=== PATIENT | female | born 1995 | race Caucasian/White ===

== ENCOUNTER 2020-08-21 09:25 | Emergency (ER) | payer SELFPAY ==
[2020-08-21 09:31] VITALS: BP 120/80; PULSE 88; RESP 16; TEMP 36.5; O2SAT 99; BMI 28.3
--- NOTE | 2020-08-21 09:35 | W.ED.SKABFB ---
HPI - Skin/Abscess/Foreign Bdy General: Chief complaint: Skin/Abscess/Foreign Body Stated complaint: Infection on Big Toe (Left Foot) Time Seen by Provider: 08/21/20 09:27 History of Present Illness: HPI narrative: Patient is a 24-year-old female comes to the ED with ingrown toenail on left big toe. Patient says it started approximately 2 weeks ago. She has had this problem in the past and had to get part of her nail resected at her PCP. She now has swelling, erythema and warmth to the lateral aspect of left great toe. She says it is very tender and hurts whenever she puts any pressure on it. Associated symptoms: Deny chills, fever(s), nausea or vomiting Review of Systems Const: Denies: fever(s), chills or fatigue Eyes: Denies: change in vision or eye discomfort ENMT: Denies: throat pain, odynophagia, nasal discharge or nasal congestion Card: Denies: chest pain, palpitations, edema, swelling of feet/ankles, dyspnea on exertion or orthopnea Resp: Denies: dyspnea, productive cough or non-productive cough GI: Denies: abdominal pain, nausea, vomiting, diarrhea, constipation or hematochezia : Denies: flank pain, dysuria or hematuria Musc: Reports: extremity pain (Left great toe pain); Denies: neck pain, back pain or extremity swelling Skin/Breast: Denies: rash or new lesions Neuro: Denies: headache(s), numbness in extremities or weakness in extremities Physical Exam Const: COMMON NORMALS: no acute distress, patient oriented x3, healthy appearing and alert GENERAL APPEARANCE: cooperative and comfortable HENMT: COMMON NORMALS: normocephalic HEAD & SCALP: normocephalic MOUTH: Normal oral and palatal mucosa present THROAT: posterior oropharynx normal and uvula midline Neck/C-Spine: COMMON NORMALS: supple GENERAL: Yes normal visual inspection Resp: COMMON NORMALS: normal respiratory effort, No retractions, No use of accessory muscles and clear to auscultation bilaterally AUSCULTATION: clear to auscultation bilaterally Cardio: COMMON NORMALS: regular rate, regular rhythm, S1 normal heart sound present, S2 normal heart sound present, No gallops present (Cardio), No clicks present (Cardio), No murmurs present (Cardio) and Peripheral pulses 2+ throughout RATE: regular rate RHYTHM: regular rhythm HEART SOUNDS: S1 normal heart sound present and S2 normal heart sound present PERIPHERAL PULSES: Peripheral pulses 2+ throughout GI: COMMON NORMALS: Normal to inspection, nondistended, normoactive bowel sounds present, Soft to palpation, non-tender and no masses PALPATION: Yes Soft to palpation : COMMON NORMALS: Yes no CVA tenderness BLADDER/KIDNEY EXAM: Yes no CVA tenderness Back/Pelvis: COMMON NORMALS: no CVA tenderness Extremity: LEFT LOWER EXTREMITY: Yes foot & digits (1st digit) Left foot and digits: Yes inspection (Patient has ingrown toenail on big toe. Surrounding erythema, warmth ) and Yes palpation (tender upon palpation) Neuro: COMMON NORMALS: patient oriented x3 and moves all extremities SENSORIUM/ORIENTATION: Yes alert Skin: GENERAL SKIN EXAM: dry skin Procedures Nerve Block Nerve Block 1: Time out performed: Yes Local Anesthetic: lidocaine 2% Amount of anesthesia used (mL): 10 Side: left Nerve Blocks: digital (1st digit) Procedure Successful: Yes Patient Tolerated Procedure: well Complications: none Course ED course: I performed wedge nail resection on patient's left great toe. Patient had an ingrown toenail upon exam with erythema, warmth and tenderness around the nail fold. Using surgical scissors I was able to cut the nail and using forceps I remove the section of the nail that was ingrown into the nail fold causing infection. A digital block was performed to help with pain. Toe was irrigated with normal saline and cleaned with iodine. Vital Signs: Vital signs: Vital Signs Temperature 97.7 F 08/21/20 09:31 Pulse Rate 78 08/21/20 10:45 Respiratory Rate 18 08/21/20 10:45 Blood Pressure 104/71 08/21/20 10:45 Pulse Oximetry 100 08/21/20 10:45 MDM - Skin/Abscess/Foreign Bdy MDM Narrative: Medical decision making narrative: Patient is a 24-year-old female comes to the ED with ingrown toenail on left great toe. The toe had some erythema, warmth and tenderness upon palpation. I used a digital block and performed a wedge resection of nail that was growing into the nail fold. There were no complications. Patient was then placed on some antibiotics. She was told to follow-up with her PCP in 7 to 10 days for reevaluation. Return ED precautions given. Patient understood agree with plan. Discharge Plan Discharge Patient Disposition: Home Clinical Impression: Ingrowing nail, left great toe Condition: Stable Prescriptions: New amoxicillin 500 mg tablet 500 mg PO BID 10 Days Qty: 20 RF: 0 Discharge Orders: Discharge ED (Routine); Ordered 08/21/20 Ordered By: Charles Blackman Referrals: Charles Molina MD [Primary Care Provider] - Discharge Diet: Regular Discharge Activity: Resume usual activity Patient Instructions: Ingrown Nail (ED) Activity Restrictions/Additional Instructions: Follow-up with medical provider as directed in 7 to 10 days for reevaluation. Take medications as prescribed. Soak toe in Epsom salt water twice a day. Apply Neosporin and bandage daily. Take [id number] ibuprofen or Tylenol for pain. Return to the ER or your medical provider if condition worsens. Please read and understand discharge instructions. If any questions, please ask. Coding Level of Care Code ED Senior Enlisted Advisor for Karie Fwd Exam Comprehensive
[2020-08-21] MEDS: lidocaine 2% INJ 20 mL INJECTION (09:38)
[2020-08-21] MEDS: amoxicillin 500 mg Capsule PO (10:42)
[2020-08-21 10:45] VITALS: BP 104/71; PULSE 78; RESP 18; O2SAT 100
== END 2020-08-21 10:45 | disposition home or self-care (01) ==
PROVIDERS: Emergency Provider Physician Assistant; PCP Family Medicine
DX: L60.0 Ingrowing nail (principal)
CPT/HCPCS: 12345; 64450; 99281; 99283

== ENCOUNTER 2021-01-10 20:17 | Inpatient (IN) | payer SELFPAY ==
[2021-01-10 20:25] VITALS: BP 108/74; PULSE 100; RESP 18; TEMP 37.3; O2SAT 96; BMI 29.2
--- NOTE | 2021-01-10 20:46 | ED_ITS ---
HPI - Psych General: Chief Complaint: Psychiatric Symptoms Stated Complaint: SI Time Seen by Provider: 01/10/21 20:42 History of Present Illness: HPI Narrative: Patient is a 25-year-old female comes to the ED with SI. Patient says she has a history of depression and anxiety. Patient states for the past 3 weeks she is having worsening thoughts of SI. She says she has a lot of relationship and financial stress going on right now which is making her symptoms worse. She also states that January 02 was the anniversary of her son's , which is making her more depressed and suicidal. She denies having any plan in place. She endorses anxiety and not being able to sleep at night. She also says she has had no appetite and has lost interest in activities. Endorses auditory hallucinations of voices telling her to hurt herself and she also sees people that are not there and shadowy figures. Denies any homicidal ideation. Patient endorses drinking more alcohol over the past couple weeks but denies any drug use. Patient denies any physical symptoms such as fever, chills, chest pain, shortness of breath, cough, nausea/vomiting, bladder or bowel symptoms. Associated symptoms: Reports auditory hallucinations (She is hearing voices telling her to hurt herself.), visual hallucinations (She sees people standing next to her that are not there or shadowy figures.), depression and suicidal ideation; Deny homicidal ideation Review of Systems Const: Denies: fever(s), chills or fatigue Eyes: Denies: change in vision or eye discomfort ENMT: Denies: throat pain, odynophagia, nasal discharge or nasal congestion Card: Denies: chest pain, palpitations, edema, swelling of feet/ankles, dyspnea on exertion or orthopnea Resp: Denies: dyspnea, productive cough or non-productive cough GI: Denies: abdominal pain, nausea, vomiting, diarrhea, constipation or hematochezia : Denies: flank pain, dysuria or hematuria Musc: Denies: neck pain, back pain or extremity swelling Skin/Breast: Denies: rash or new lesions Neuro: Denies: headache(s), numbness in extremities or weakness in extremities Psych: Reports: anxiety, depression, sleeping less, loss of interest, change in appetite (No appetite), visual hallucinations (She sees people standing next to her that are not there or shadowy figures.), auditory hallucinations (She is hearing voices telling her to hurt herself.) and suicidal ideation; Denies: homicidal ideation [facility] ED Female Reproductive History: Date of last menstrual period: 12/14/20 Physical Exam Const: COMMON NORMALS: no acute distress, patient oriented x3 and alert GENERAL APPEARANCE: cooperative and comfortable HENMT: COMMON NORMALS: normocephalic HEAD & SCALP: normocephalic MOUTH: Normal oral and palatal mucosa present THROAT: posterior oropharynx normal and uvula midline Neck/C-Spine: COMMON NORMALS: supple GENERAL: Yes normal visual inspection Resp: COMMON NORMALS: normal respiratory effort, No retractions, No use of accessory muscles and clear to auscultation bilaterally AUSCULTATION: clear to auscultation bilaterally Cardio: COMMON NORMALS: regular rate, regular rhythm, S1 normal heart sound present, S2 normal heart sound present, No gallops present (Cardio), No clicks present (Cardio), No murmurs present (Cardio) and Peripheral pulses 2+ throughout RATE: regular rate RHYTHM: regular rhythm HEART SOUNDS: S1 normal heart sound present and S2 normal heart sound present PERIPHERAL PULSES: Peripheral pulses 2+ throughout GI: COMMON NORMALS: Normal to inspection, nondistended, normoactive bowel s ounds present, Soft to palpation, non-tender and no masses PALPATION: Yes Soft to palpation : COMMON NORMALS: Yes no CVA tenderness BLADDER/KIDNEY EXAM: Yes no CVA tenderness Back/Pelvis: COMMON NORMALS: no CVA tenderness Neuro: COMMON NORMALS: patient oriented x3 and moves all extremities SENS ORIUM/ORIENTATION: Yes alert Psych: COMMON NORMALS: Normal thought process present and speech normal APPEARANCE: Yes grossly normal ATTITUDE: Yes calm ACTIVITY/MOTOR BEHAVIOR: Yes appropriate eye contact SPEECH: Yes normal speech MOOD & AFFECT: Yes depressed mood, Yes sad and Yes tearful THOUGHT PROCESS: Normal thought process present THOUGHT CONTENT: Yes Suicidality present and Yes Hallucination(s) present auditory (Hears voices telling her to hurt her self) and visual (Sees people that are not there and shadowy figures) ATTENTION/CONCENTRATION: Yes attention grossly intact and Yes concentration grossly intact MEMORY/COGNITION: Yes memory grossly intact and Yes cognition grossly intact INSIGHT: Fair insight present (Psych) JUDGEMENT: Fair judgement present (Psych) Skin: GENERAL SKIN EXAM: dry skin Course Consultations: Consultation #1: I contacted Dr. Santos and told about patient case. He accepts admission of patient into NPU. Time: 21:14 Vital Signs: Vital signs: Vital Signs Temperature 99.1 F 01/10/21 20:25 Pulse Rate 100 01/10/21 20:25 Respiratory Rate 18 01/10/21 20:25 Blood Pressure 108/74 01/10/21 20:25 Pulse Oximetry 96 01/10/21 20:25 MDM - Psych MDM Narrative: Medical decision making narrative: Patient is a 25-year-old female comes to the ED with SI. Patient reports having increased anxiety depression and thoughts of suicide over the past couple weeks. She says that current stress with job, finances and relationships has been worsening symptoms. She also states that the anniversary of her son's passing was on January 02 and that is also worsened her symptoms of depression and SI. Patient is complaining of no other physical symptoms. Vital stable and in all prescreening labs performed low remarkable findings. I contacted Dr. Santos told about patient and he accepts patient's admission into the NPU. Dr. Gay placed the admitting orders. Lab Data: Attestation: I reviewed the patient's lab results. Labs: Lab Results 01/10/21 01/10/21 01/10/21 Range/Units 20:40 20:40 20:45 WBC 8.5 (4.0-10.0) 10^3/ uL RBC 4.48 (4.1-5.3) 10^6/u L Hgb 13.4 (11.5-15.3) g/dL Hct 39.2 (37.0-47.0) % MCV 87.5 (81-99) fL MCH 29.9 (28.0-34.0) pg MCHC 34.2 (30.0-36.0) g/dL RDW 12.0 L (12.1-15.1) % Plt Count 287 (130-400) 10^3/c mm MPV 9.4 (7.4-10.4) fL Neut % (Auto) 46.4 % Lymph % (Auto) 44.1 % Furn[place] % (Auto) 7.7 % Eos % (Auto) 0.7 % Baso % (Auto) 0.7 % Neut # (Auto) 3.94 (1.8-7.7) 10^3/u L Lymph # (Auto) 3.7 (0.8-4.8) 10^3/u L Furn[place] # (Auto) 0.7 (0.2-0.9) 10^3/u L Eos # (Auto) 0.1 (0.0-0.8) 10^3/u L Baso # (Auto) 0.1 (0.0-0.1) 10^3/u L Nucleated RBC % (a uto) 0 % Nucleated RBCs # 0.0 /100WBC Sodium 136 (136-145) mmol/L Potassium 3.8 (3.5-5.1) mmol/L Chloride 103 (98-107) mmol/L Carbon Dioxide 21 L (22-29) mmol/L Anion Gap 15.8 (5-19) BUN 15 (6-20) mg/dL Creatinine 0.7 (0.5-0.9) mg/dL GFR Calculation 102.0 (90-130) mL/min Glucose 98 (65-115) mg/dL Calculated Osmolal ity 283 L (285-295) mOsm/k g Calcium 9.4 (8.5-10.5) mg/dL Total Bilirubin 0.4 (0.15-1.2) mg/dL AST 16 (0-32) U/L ALT 14 (0-33) U/L Alkaline Phosphata se 59 (35-105) IU/L Total Protein 7.4 (6.6-8.7) g/dL Albumin 4.9 (3.5-5.2) g/dL Globulin 2.5 (1.3-4.6) g/dL HCG, Qual Negative (Negative) Salicylates < 0.3 L (3-10) mg/dL Urine Opiates Scre en (Negative) ng/mL Acetaminophen < 5.0 L (10-30) ug/mL Ur Barbiturates Sc reen (Negative) ng/mL Ur Phencyclidine S crn (Negative) ng/mL Ur Amphetamines Sc reen (Negative) ng/mL U Benzodiazepines Scrn (Negative) ng/mL Urine Cocaine Scre en (Negative) ng/mL U Marijuana (THC) Screen (Negative) ng/mL Ethyl Alcohol < 10 (0-10) mg/dL 01/10/21 Range/Units 20:45 WBC (4.0-10.0) 10^3/ uL RBC (4.1-5.3) 10^6/u L Hgb (11.5-15.3) g/dL Hct (37.0-47.0) % MCV (81-99) fL MCH (28.0-34.0) pg MCHC (30.0-36.0) g/dL RDW (12.1-15.1) % Plt Count (130-400) 10^3/c mm MPV (7.4-10.4) fL Neut % (Auto) % Lymph % (Auto) % Furn[place] % (Auto) % Eos % (Auto) % Baso % (Auto) % Neut # (Auto) (1.8-7.7) 10^3/u L Lymph # (Auto) (0.8-4.8) 10^3/u L [place] # (Auto) (0.2-0.9) 10^3/u L Eos # (Auto) (0.0-0.8) 10^3/u L Baso # (Auto) (0.0-0.1) 10^3/u L Nucleated RBC % (a uto) % Nucleated RBCs # /100WBC Sodium (136-145) mmol/L Potassium (3.5-5.1) mmol/L Chloride (98-107) mmol/L Carbon Dioxide (22-29) mmol/L Anion Gap (5-19) BUN (6-20) mg/dL Creatinine (0.5-0.9) mg/dL GFR Calculation (90-130) mL/min Glucose (65-115) mg/dL Calculated Osmolal ity (285-295) mOsm/k g Calcium (8.5-10.5) mg/dL Total Bilirubin (0.15-1.2) mg/dL AST (0-32) U/L ALT (0-33) U/L Alkaline Phosphata se (35-105) IU/L Total Protein (6.6-8.7) g/dL Albumin (3.5-5.2) g/dL Globulin (1.3-4.6) g/dL HCG, Qual (Negative) Salicylates (3-10) mg/dL Urine Opiates Scre en Negative (Negative) ng/mL Acetaminophen (10-30) ug/mL Ur Barbiturates Sc reen Negative (Negative) ng/mL Ur Phencyclidine S crn Negative (Negative) ng/mL Ur Amphetamines Sc reen Negative (Negative) ng/mL U Benzodiazepines Scrn Negative (Negative) ng/mL Urine Cocaine Scre en Negative (Negative) ng/mL U Marijuana (THC) Screen Negative (Negative) ng/mL Ethyl Alcohol (0-10) mg/dL Discharge Plan Discharge Patient Disposition: Admitted As Inpatient Admit Provider: Willem Hines Clinical Impression: Suicidal ideation Condition: Stable Coding Level of Care Code ED Call Worker Person for Karie Fwd Exam Comprehensive
[2021-01-10 20:47] LABS: Basophils # 0.1 10^3/uL (0.0-0.1); Basophils % 0.7 %; Eosinophils # 0.1 10^3/uL (0.0-0.8); Eosinophils % 0.7 %; Hematocrit 39.2 % (37.0-47.0); Hemoglobin 13.4 g/dL (11.5-15.3); Lymphocytes # 3.7 10^3/uL (0.8-4.8); Lymphocytes % 44.1 %; Mean Corpuscular HGB Conc 34.2 g/dL (30.0-36.0); Mean Corpuscular Hemoglobin 29.9 pg (28.0-34.0); Mean Corpuscular Volume 87.5 fL (81-99); Mean Platelet Volume 9.4 fL (7.4-10.4); Monocytes # 0.7 10^3/uL (0.2-0.9); Monocytes % 7.7 %; Neutrophils # 3.94 10^3/uL (1.8-7.7); Neutrophils % 46.4 %; Nucleated Red Blood Cells % 0 %; Platelet Count 287 10^3/cmm (130-400); Red Blood Count 4.48 10^6/uL (4.1-5.3); White Blood Count 8.5 10^3/uL (4.0-10.0)
[2021-01-10 20:57] LABS: HCG Qualitative Urine. Negative (Negative)
[2021-01-10 21:03] LABS: Acetaminophen < 5.0 ug/mL (10-30); Alanine Aminotransferase 14 U/L (0-33); Albumin Level 4.9 g/dL (3.5-5.2); Alcohol Level < 10 mg/dL (0-10); Alkaline Phosphatase 59 IU/L (35-105); Anion Gap 15.8 (5-19); Aspartate Amino Transferase 16 U/L (0-32); Blood Urea Nitrogen 15 mg/dL (6-20); Calcium 9.4 mg/dL (8.5-10.5); Carbon Dioxide 21 mmol/L (22-29); Chloride 103 mmol/L (98-107); Globulin 2.5 g/dL (1.3-4.6); Glucose 98 mg/dL (65-115); Osmolality Calculated 283 mOsm/kg (285-295); Potassium 3.8 mmol/L (3.5-5.1); Salicylate < 0.3 mg/dL (3-10); Sodium 136 mmol/L (136-145); Total Bilirubin 0.4 mg/dL (0.15-1.2); Total Protein 7.4 g/dL (6.6-8.7)
[2021-01-10] MEDS: LORazepam 1 mg Tablet PO (21:41)
[2021-01-10 22:00] VITALS: BP 135/85; PULSE 75; RESP 18; TEMP 37.1; O2SAT 96
--- NOTE | 2021-01-10 22:15 | PC.NURSE ---
Addendum entered by Britta Fish RN 01/11/21 02:02: Pt reports seeing a shadow figure and someone standing next to her that just disappears. She says the voices are telling her to hurt herself and she does not deserve to live. Pt became tearful as she talked about losing her child, the anniversary of his was January 02, this is when she began to really be symptomatic. She expressed that her drinking is getting worse and she don't want to become an alcoholic. Original Note: Admission 25/F SI & AH/VH/Tactile UDS &BAL BOTH NEG Per pt report, she has been having suicidal thoughts for a couple of weeks with them become worse over the last couple days. Pt reports seeking help with her mental health after the visual & auditory hallucinations were complicated by tactile hallucinations. Pt says, ?it is like something is grabbing me?. Pt reports beginning new medication last Saturday. She states, ?I started taking Abilify on Saturday but I think it is making things worse, my heart pounds, began stuttering, and having panic attacks. I am not sure if that is related or not.? Pt states, ?I also started taking Lexapro, and a small white pill, I believe is clonidine.? Pt reports picking RX up from [facility]. Stressors: Pt expressed financial concerns, inability to pay for medication and care without insurance, pending divorce, announcing her sexual orientation to conservative Orthodoxy family members accompanied by restorationist guilt, complicated by the inability to grieve the loss of her child 5 years ago. 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
[2021-01-10 22:28] LABS: Amphetamines Screen Urine Negative (Negative); Barbiturates Screen Urine Negative (Negative); Benzodiazepines Screen Urine Negative (Negative); Cocaine Screen Urine Negative (Negative); Opiate Screen Urine Negative (Negative); PCP Screen Urine Negative (Negative); THC Screen Urine Negative (Negative)
--- NOTE | 2021-01-10 23:10 | PC.NURSE ---
pt requested meds for sleep and anxiety. Trazodone 50mg po for sleep, and Vistaril 50mg po for anxiety given.
[2021-01-10] MEDS: hyDROXYzine 25 mg Capsule 50 MG PO ×2 (23:18→23:20)
[2021-01-10] MEDS: trazodone 50 mg Tablet PO ×2 (23:19→23:20)
--- NOTE | 2021-01-11 00:12 | PC.NURSE ---
pt resting quietly with both eyes closed.
[2021-01-11 06:00] VITALS: BP 95/63; PULSE 102; RESP 17; TEMP 36.8; O2SAT 99
[2021-01-11 14:00] VITALS: BP 105/72; PULSE 85; RESP 18; TEMP 37.1; O2SAT 99
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
[2021-01-11] MEDS: acetaminophen 325 mg Tablet 650 MG PO (20:29)
[2021-01-11 20:30] VITALS: BP 110/73; PULSE 117; RESP 24; TEMP 37; O2SAT 97
[2021-01-11] MEDS: BuSPIRONE 10 mg Tablet 15 MG PO (20:30)
[2021-01-11] MEDS: hyDROXYzine 25 mg Capsule 50 MG PO (21:24)
--- NOTE | 2021-01-11 21:25 | PC.NURSE ---
PRN Visteril 50mg PO given for anxiety and to help pt relax while trying to go to sleep. PT reports to nurse that this medication worked well for her last night without the hang over effect other medications have had in the past.
[2021-01-12 06:00] VITALS: BP 98/62; PULSE 68; RESP 18; TEMP 36.9; O2SAT 100
[2021-01-12] MEDS: BuSPIRONE 10 mg Tablet 15 MG PO ×2 (08:24→21:11)
[2021-01-12 13:54] VITALS: BP 101/68; PULSE 78; RESP 16; TEMP 37.1; O2SAT 99
[2021-01-12] MEDS: acetaminophen 325 mg Tablet 650 MG PO (21:10)
--- NOTE | 2021-01-12 21:12 | PC.NURSE ---
Tylenol 650mg PO given for headache rate 5 on 1-10 scale
[2021-01-12 21:20] VITALS: BP 101/68; PULSE 78; RESP 16; TEMP 37.1; O2SAT 99
[2021-01-12 21:33] VITALS: BP 96/66; PULSE 77; RESP 18; TEMP 37.4; O2SAT 99
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
== END 2021-01-12 21:50 | disposition left against medical advice (07) | DRG 881 ==
LOC: ER 21:37 → NP 21:47
PROVIDERS: Emergency Medicine; Admitting Provider Internal Medicine; Emergency Provider Physician Assistant; PCP Family Medicine; Visit Provider Internal Medicine
DX: F32.9 Major depressive disorder, single episode, unspecified (principal); R45.851 Suicidal ideations; R44.0 Auditory hallucinations; F41.9 Anxiety disorder, unspecified; F43.10 Post-traumatic stress disorder, unspecified; R44.1 Visual hallucinations; K58.9 Irritable bowel syndrome, unspecified; Z91.5 Personal history of self-harm; Z63.0 Problems in relationship with spouse or partner; Z72.89 Other problems related to lifestyle; Z81.8 Family history of other mental and behavioral disorders; Z62.811 Personal history of psychological abuse in childhood; Z53.29 Procedure and treatment not carried out because of patient's decision for other reasons; Z91.410 Personal history of adult physical and sexual abuse
CPT/HCPCS: 80053; 80306; 80307; 81025; 85025; 99285

== ENCOUNTER 2021-02-07 10:12 | Emergency (ER) | payer MEDICAID, SELFPAY ==
[2021-02-07 10:45] VITALS: PULSE 83; RESP 16; TEMP 36.4; O2SAT 99; BMI 30.4
[2021-02-07 10:48] VITALS: BP 93/68; PULSE 71; RESP 15; O2SAT 99
--- NOTE | 2021-02-07 11:10 | CT_ITS ---
WS: [id number] CT ABDOMEN AND PELVIS WITH CONTRAST HISTORY: RLQ/ Rt flank pain TECHNIQUE: Imaging performed of the abdomen and pelvis with IV contrast. Single phase imaging of the abdomen. Coronal and sagittal reformats are submitted. All CT scans at [facility] use at least one of these dose optimization techniques: automated exposure control; mA and/or kV adjustment per patient size (includes targeted exams where dose is matched to clinical indication); or iterativ e reconstruction. IV CONTRAST: Omnipaque 300; 95 mL IV. Oral contrast: No DLP: 1296.4 mGy.cm COMPARISON: 10/31/2012 Lower thorax: Lung bases are clear. Heart is normal size. No hiatal hernia. Liver/biliary system: Normal size with no intrahepatic dilatation. Tiny hypodensity in the posterior RIGHT lobe liver is probably a cyst but too small to characterize. Gallbladder: Normal. No gallstones or wall thickening. No pericholecystic fluid. Pancreas: Normal size pancreas and pancreatic duct. No adjacent inflammation. Spleen: Normal size spleen. No mass or infarct. Adrenal glands: Normal. Right kidney: Normal. Left kidney: Normal. Aorta: Normal. Lymphadenopathy: None. Free fluid: There is a small amount of free fluid in the cul-de-sac and extending bilaterally into th e adnexa. GI tract: The appendix is only partially visualized but normal. Moderate diffuse fecal retention. No obstruction. Increased air within the stomach. Abdominal wall: Unremarkable abdominal wall. No hernia. Pelvis: Uterus is midline. RIGHT ovarian cyst measures 2.5 x 2.1 cm. Small follicles in the LEFT ovar y. There is a small amount of free fluid in the cul-de-sac. Slightly more than physiologic and extend s bilaterally. Bones: RIGHT convex curvature lumbar spine. CT/CT abdomen pelvis w con* [id number] IMPRESSION: 1. Partially visualized appendix is normal. 2. Small RIGHT ovarian cyst and small amount of free fluid in the cul-de-sac. Fluid may be due to ruptured ovarian cyst. 3. No renal obstruction.
--- NOTE | 2021-02-07 11:11 | ED_ITS ---
HPI - Abdominal Pain General: Chief Complaint: Abdominal Pain Stated Complaint: lower abd and back pain Time Seen by Provider: 02/07/21 11:04 History of Present Illness: HPI narrative: The patient comes to the ER complaining of right pubic pain that started last night also right flank pain radiating to the right lower quadrant. She has not had kidney stones before but has had multiple UTIs. She is also had the ovarian cysts in the past which feels similar to the pain she is having now. She was seen at her primary care doctor's office today and told she had a possible UTI with some white blood cells in her urine and to go to the ER for a CAT scan. MD elicited complaint: abdominal pain Pain Consistency: constant Location: RLQ Severity: moderate Quality: sharp Radiation: R flank Exacerbating factors: nothing and other (Palpation) Relieving factors: nothing Associated Symptoms: Reports no associated symptoms; Denies GI cramping and diarrhea Related Data: Date of Last Menstrual Period: 12/19/20 Review of Systems General: Reports: 10 or more systems reviewed and unremarkable except in HPI and below Const: Denies: fatigue Eyes: Denies: change in vision, blurry vision or eye redness ENMT: Denies: throat pain, swelling of lips/tongue, ear or mastoid pain or nasal congestion Card: Denies: chest pain, palpitations, irregular heart rhythm, edema, dyspnea on exertion or orthopnea Resp: Denies: dyspnea, productive cough or non-productive cough GI: Reports: abdominal pain; Denies: diarrhea or GI cramping : Reports: flank pain (right); Denies: difficulty voiding, urinary frequency or urinary urgency Musc: Denies: neck pain, back pain, extremity pain, joint pain, joint redness, limited range of motion or muscle weakness Skin/Breast: Denies: rash, pruritus, erythema, skin pain or skin tenderness Neuro: Denies: headache(s), numbness in extremities, weakness in extremities, sensory changes, difficulty walking, dizziness, confusion or Slurred speech present Psych: Denies: anxiety or depression Endo: Denies: polyuria All/Imm: Denies: urticaria, throat swelling or tongue swelling [facility] Female Reproductive History: Date of last menstrual period: 12/19/20 : 3 Physical Exam Const: COMMON NORMALS: no acute distress, average body habitus, patient oriented x3, no limitations, healthy appearing, alert and well nourished GENERAL APPEARANCE: cooperative, comfortable, well kempt and well developed ORIENTATION/CONSCIOUSNESS: Yes awake, Yes oriented to person, Yes oriented to place and Yes oriented to time HENMT: COMMON NORMALS: normocephalic, external ears normal and Normal external nose present HEAD & SCALP: normal to inspection and normocephalic NOSE: Normal external nose present EXTERNAL EAR: Yes external ears normal MOUTH: Normal oral and palatal mucosa present THROAT: posterior oropharynx normal Eye: COMMON NORMALS: Equal, round and reactive pupils present and EOMs intact bilaterally GENERAL EYE: appearance normal, both eyes and all related structures PUPIL: Yes Equal, round and reactive pupils present Neck/C-Spine: COMMON NORMALS: full ROM, no lymphadenopathy, no meningeal signs and no JVD GENERAL: Yes normal visual inspection Lymph: LYMPHATIC: no lymphadenopathy noted Chest: COMMONS NORMALS: normal inspection of the chest and normal palpation of entire chest wall Resp: COMMON NORMALS: normal respiratory effort, No retractions, No use of accessory muscles, clear to auscultation bilaterally and percussion normal EFFORT & INSPECTION: Yes able to speak in complete sentences AUSCULTATION: clear to auscultation bilaterally PERCUSSION: percussion normal Cardio: COMMON NORMALS: no JVD, regular rate, regular rhythm, S1 normal heart sound present, S2 normal heart sound present and Peripheral pulses 2+ throughout RATE: regular rate RHYTHM: regular rhythm HEART SOUNDS: S1 normal heart sound present and S2 normal heart sound present PERIPHERAL PULSES: Peripheral pulses 2+ throughout GI: COMMON NORMALS: Normal to inspection, nondistended, normoactive bowel sounds present, Soft to palpation and no masses INSPECTION: Yes normal to inspection PALPATION: Yes Soft to palpation GI image (female): 1. Right lower quadrant abdominal tenderness near the ovaries : OTHER: Right-sided flank tenderness. Back/Pelvis: COMMON NORMALS: thoracic and lumbar spine normal to inspection, no thoracic nor lumbar tenderness and thoraco-lumbar ROM normal Extremity: COMMON NORMALS: normal to inspection, full ROM, capillary refill normal, no joint enlargement and no pedal edema GENERAL: Yes normal exam except as noted Neuro: COMMON NORMALS: patient oriented x3, CN's II-XII intact bilaterally, moves all extremities, no focal motor deficits, no sensory deficits noted and gait normal SENSORIUM/ORIENTATION: Yes alert, Yes oriented to person, Yes oriented to place and Yes oriented to time MENINGEAL SIGNS: Yes no meningeal signs Psych: COMMON NORMALS: mental status grossly normal, Normal thought process present, cooperative, normal affect and speech normal APPEARANCE: Yes well kempt ATTITUDE: Yes calm SPEECH: Yes normal speech THOUGHT PROCESS: Normal thought process present Skin: COMMON NORMALS: no rashes or lesions noted GENERAL SKIN EXAM: no rashes or lesions noted Course Vital Signs: Vital signs: Vital Signs Temperature 97.6 F 02/07/21 10:45 Pulse Rate 71 02/07/21 13:00 Respiratory Rate 15 02/07/21 13:00 Blood Pressure 106/60 02/07/21 13:00 Pulse Oximetry 100 02/07/21 13:00 MDM - Abdominal Pain MDM Narrative: Medical decision making narrative: The patient comes in with right flank pain and right lower quadrant pain. She has a history of ovarian cyst. Does not have history of stones. She does have occasional UTIs. She was sent from primary care office for a belly CT. And told she had white blood cells in her urine. Here her urine is clear but she does have right flank pain and right lower quadrant pain near her ovaries. She has had ovarian cyst in the past and it does feel similar there. CT does show recent ruptured ovarian cyst most likely. We will treat her for potential UTI and discharge her home. Follow-up with Dr. Molina in a couple days. ER at anytime with worsening symptoms Lab Data: Labs: Lab Results 02/07/21 02/07/21 02/07/21 Range/Units 11:06 11:06 11:06 WBC 7.1 (4.0-10.0) 10^3/ uL RBC 4.44 (4.1-5.3) 10^6/u L Hgb 13.4 (11.5-15.3) g/dL Hct 39.7 (37.0-47.0) % MCV 89.4 (81-99) fL MCH 30.2 (28.0-34.0) pg MCHC 33.8 (30.0-36.0) g/dL RDW 12.2 (12.1-15.1) % Plt Count 257 (130-400) 10^3/c mm MPV 9.3 (7.4-10.4) fL Neut % (Auto) 57.0 % Lymph % (Auto) 32.5 % [place] % (Auto) 8.2 % Eos % (Auto) 1.1 % Baso % (Auto) 0.8 % Neut # (Auto) 4.02 (1.8-7.7) 10^3/u L Lymph # (Auto) 2.3 (0.8-4.8) 10^3/u L [place] # (Auto) 0.6 (0.2-0.9) 10^3/u L Eos # (Auto) 0.1 (0.0-0.8) 10^3/u L Baso # (Auto) 0.1 (0.0-0.1) 10^3/u L Nucleated RBC % (a uto) 0 % Nucleated RBCs # 0.0 /100WBC Sodium 136 (136-145) mmol/L Potassium 4.2 (3.5-5.1) mmol/L Chloride 104 (98-107) mmol/L Carbon Dioxide 22 (22-29) mmol/L Anion Gap 14.2 (5-19) BUN 11 (6-20) mg/dL Creatinine 0.5 (0.5-0.9) mg/dL GFR Calculation 150.3 H (90-130) mL/min Glucose 81 (65-115) mg/dL Calculated Osmolal ity 280 L (285-295) mOsm/k g Calcium 8.8 (8.5-10.5) mg/dL Total Bilirubin 0.4 (0.15-1.2) mg/dL AST 16 (0-32) U/L ALT 13 (0-33) U/L Alkaline Phosphata se 56 (35-105) IU/L Total Protein 7.0 (6.6-8.7) g/dL Albumin 4.3 (3.5-5.2) g/dL Globulin 2.7 (1.3-4.6) g/dL Lipase 20 (13-60) U/L HCG, Qual Negative (Negative) Urine Color (Yellow) Urine Appearance (CLEAR) Urine pH (5-7) Ur Specific Gravit y (1.005-1.030) Urine Protein (Negative) Urine Glucose (UA) (Normal) Urine Ketones (Negative) Urine Blood (Negative) Urine Nitrate (Negative) Urine Bilirubin (Negative) Urine Urobilinogen (Negative) mg/dL Ur Leukocyte Mel ase (Negative) Urine RBC (0-2) /hpf Urine WBC (0-5) /hpf Ur Squamous Epith Cells (0-5) /hpf Amorphous Sediment Urine Bacteria (NONE) /hpf 02/07/21 Range/Units 11:06 WBC (4.0-10.0) 10^3/ uL RBC (4.1-5.3) 10^6/u L Hgb (11.5-15.3) g/dL Hct (37.0-47.0) % MCV (81-99) fL MCH (28.0-34.0) pg MCHC (30.0-36.0) g/dL RDW (12.1-15.1) % Plt Count (130-400) 10^3/c mm MPV (7.4-10.4) fL Neut % (Auto) % Lymph % (Auto) % [place] % (Auto) % Eos % (Auto) % Baso % (Auto) % Neut # (Auto) (1.8-7.7) 10^3/u L Lymph # (Auto) (0.8-4.8) 10^3/u L [place] # (Auto) (0.2-0.9) 10^3/u L Eos # (Auto) (0.0-0.8) 10^3/u L Baso # (Auto) (0.0-0.1) 10^3/u L Nucleated RBC % (a uto) % Nucleated RBCs # /100WBC Sodium (136-145) mmol/L Potassium (3.5-5.1) mmol/L Chloride (98-107) mmol/L Carbon Dioxide (22-29) mmol/L Anion Gap (5-19) BUN (6-20) mg/dL Creatinine (0.5-0.9) mg/dL GFR Calculation (90-130) mL/min Glucose (65-115) mg/dL Calculated Osmolal ity (285-295) mOsm/k g Calcium (8.5-10.5) mg/dL Total Bilirubin (0.15-1.2) mg/dL AST (0-32) U/L ALT (0-33) U/L Alkaline Phosphata se (35-105) IU/L Total Protein (6.6-8.7) g/dL Albumin (3.5-5.2) g/dL Globulin (1.3-4.6) g/dL Lipase (13-60) U/L HCG, Qual (Negative) Urine Color Straw (Yellow) Urine Appearance Clear (CLEAR) Urine pH 5 (5-7) Ur Specific Gravit y 1.010 (1.005-1.030) Urine Protein Neg (Negative) Urine Glucose (UA) Norm (Normal) Urine Ketones Negative (Negative) Urine Blood Neg (Negative) Urine Nitrate Negative (Negative) Urine Bilirubin Neg (Negative) Urine Urobilinogen Norm (Negative) mg/dL Ur Leukocyte Mel ase Negative (Negative) Urine RBC None (0-2) /hpf Urine WBC None (0-5) /hpf Ur Squamous Epith Cells 0-4 H (0-5) /hpf Amorphous Sediment Not Reportable Urine Bacteria None (NONE) /hpf Discharge Plan Discharge Patient Disposition: Home Clinical Impression: Ovarian cyst Condition: Stable Prescriptions: New cephalexin 500 mg capsule 500 mg PO BID 5 Days Qty: 10 RF: 0 No Action buspirone 5 mg Tablet 5 mg PO BID PRN (Reason: Anxiety) RF: 0 Discharge Orders: Discharge ED (Routine); Ordered 02/07/21 Ordered By: Masood Salgado Referrals: Charles Molina MD [Primary Care Provider] - Discharge Diet: Advance as tolerated Discharge Activity: Resume usual activity Patient Instructions: Ovarian Cyst (ED), Opioid Safety Activity Restrictions/Additional Instructions: You came in complaining of right lower quadrant abdominal pain and have a history of ovarian cysts. CAT scan shows you do have an ovarian cyst that has likely ruptured and causing your pain. Also you noted that there was some white blood cells in your urine at your primary doctor's office. Here in the ED it is clean but we will treat you for a potential urine infection anyway. Please take the Keflex as directed for 5 days and return to the ER at anytime with worsening symptoms. Follow-up with Dr. Molina in a couple days. Coding Level of Care Code ED Canvas Worker Apprentice for Karie Corbin
[2021-02-07 11:14] LABS: Basophils # 0.1 10^3/uL (0.0-0.1); Basophils % 0.8 %; Eosinophils # 0.1 10^3/uL (0.0-0.8); Eosinophils % 1.1 %; Hematocrit 39.7 % (37.0-47.0); Hemoglobin 13.4 g/dL (11.5-15.3); Lymphocytes # 2.3 10^3/uL (0.8-4.8); Lymphocytes % 32.5 %; Mean Corpuscular HGB Conc 33.8 g/dL (30.0-36.0); Mean Corpuscular Hemoglobin 30.2 pg (28.0-34.0); Mean Corpuscular Volume 89.4 fL (81-99); Mean Platelet Volume 9.3 fL (7.4-10.4); Monocytes # 0.6 10^3/uL (0.2-0.9); Monocytes % 8.2 %; Neutrophils # 4.02 10^3/uL (1.8-7.7); Nucleated Red Blood Cells % 0 %; Platelet Count 257 10^3/cmm (130-400); Red Blood Count 4.44 10^6/uL (4.1-5.3); Red Cell Distribution Width 12.2 % (12.1-15.1); White Blood Count 7.1 10^3/uL (4.0-10.0)
[2021-02-07] MEDS: sodium chloride 0.9% 1,000 ML 999 ML IV (11:16)
[2021-02-07 11:17] LABS: Bilirubin Urine Neg (Negative); Blood Urine Neg (Negative); Glucose Urine UA Norm (Normal); Ketones Urine Negative (Negative); Leukocyte Esterase Urine Negative (Negative); Nitrate Urine Negative (Negative); Protein Urine Neg (Negative); Urine Appearance Clear (CLEAR); Urine Color Straw (Yellow); Urobilinogen Urine Norm (Negative); pH Urine 5 (5-7)
[2021-02-07 11:24] LABS: Squamous Epithelial Cell Urine 0-4 /hpf (0-5)
[2021-02-07 11:25] LABS: HCG, Serum Qual Negative (Negative)
[2021-02-07 11:31] LABS: Alanine Aminotransferase 13 U/L (0-33); Albumin Level 4.3 g/dL (3.5-5.2); Alkaline Phosphatase 56 IU/L (35-105); Anion Gap 14.2 (5-19); Aspartate Amino Transferase 16 U/L (0-32); Blood Urea Nitrogen 11 mg/dL (6-20); Calcium 8.8 mg/dL (8.5-10.5); Carbon Dioxide 22 mmol/L (22-29); Chloride 104 mmol/L (98-107); Creatinine Clr Calc Pharmacy 150.9803; Globulin 2.7 g/dL (1.3-4.6); Glomerular Filtration Rate 150.3 mL/min (90-130); Glucose 81 mg/dL (65-115); Lipase 20 U/L (13-60); Osmolality Calculated 280 mOsm/kg (285-295); Potassium 4.2 mmol/L (3.5-5.1); Sodium 136 mmol/L (136-145); Total Bilirubin 0.4 mg/dL (0.15-1.2)
[2021-02-07] MEDS: iohexol 300 mg/mL 100 mL Btl IV (11:54)
[2021-02-07 12:00] VITALS: BP 107/60; PULSE 82; RESP 14; O2SAT 100
[2021-02-07 13:00] VITALS: BP 106/60; PULSE 71; RESP 15; O2SAT 100
[2021-02-07] MEDS: cephALEXin 500 mg Capsule PO (14:27)
== END 2021-02-07 14:34 | disposition home or self-care (01) ==
PROVIDERS: Physician Assistant; Emergency Provider Family Medicine; PCP Family Medicine
DX: N83.201 Unspecified ovarian cyst, right side (principal)
CPT/HCPCS: 74177; 80053; 81001; 83690; 84703; 85025; 96360; 99284; J7030; Q9967

== ENCOUNTER 2021-02-24 10:13 | Emergency (ER) | payer MEDICAID, SELFPAY ==
--- NOTE | 2021-02-24 10:25 | XR_ITS ---
WS: [id number] PORTABLE CHEST HISTORY: dyspnea/cough COMPARISON: 02/18/2014 Lungs are clear and well expanded. No pleural effusion or pneumothorax. Cardiac size: Normal. Mediastinum/Aorta: Normal mediastinum. No osseous abnormality seen. XR/XR chest 1V portable [id number] IMPRESSION: Unremarkable portable chest.
[2021-02-24 10:27] VITALS: BP 91/70; PULSE 100; RESP 20; TEMP 37.2; O2SAT 100; BMI 29.2
--- NOTE | 2021-02-24 10:54 | W.ED.COVID ---
HPI - COVID General: Chief Complaint: COVID symptoms Stated Complaint: COVID +: INCREASED SOB Time Seen by Provider: 02/24/21 10:25 Triage information: Has fever, cough or shortness of breath. Exposure to COVID + person last 14 days History of Present Illness: HPI Narrative: 25-year-old female who presents to the emergency room with increasing shortness of breath patient is Covid positive. She had a rapid Covid the counter Covid positive test at home. MD complaint: known COVID positive Prior testing date: 02/22/21 COVID 19 common symptoms: positive fever(s), chills, cough, non-productive cough, dyspnea, fatigue, body aches, headache(s), loss of sense of smell and/or taste, nasal congestion, diarrhea and chest tightness COVID 19 other sytmptoms: negative requiring oxygen Onset (ago): day(s) (4) COVID Results: No Data to Display Review of Systems Const: Reports: fever(s), chills, body aches and fatigue ENMT: Reports: nasal congestion Resp: Reports: dyspnea and non-productive cough GI: Reports: diarrhea Neuro: Reports: headache(s) PFS ED PFSH: Medical History (Updated 02/24/21 @ 11:[address] DO) Asthma Female Reproductive History: Date of last menstrual period: 02/08/21 Physical Exam Const: COMMON NORMALS: no acute distress GENERAL APPEARANCE: cooperative and comfortable ORIENTATION/CONSCIOUSNESS: Yes awake, Yes oriented to person, Yes oriented to place and Yes oriented to time HENMT: COMMON NORMALS: normocephalic, atraumatic, hearing grossly normal bilaterally, external ears normal, EAC's normal, TM's normal bilaterally, Normal nasal mucous membranes and turbinates present, moist oral mucous membranes and oropharynx normal HEAD & SCALP: normocephalic and atraumatic NOSE: Normal nasal mucous membranes and turbinates present EXTERNAL EAR: Yes external ears normal EXTERNAL AUDITORY CANAL: EAC's normal TYMPANIC MEMBRANE: TM's normal bilaterally Eye: COMMON NORMALS: Equal, round and reactive pupils present, EOMs intact bilaterally, conjunctivae normal and no scleral icterus CONJUNCTIVA: Yes conjunctivae normal PUPIL: Yes Equal, round and reactive pupils present Neck/C-Spine: COMMON NORMALS: full ROM, no lymphadenopathy, supple and no JVD Lymph: LYMPHATIC: no lymphadenopathy noted and no lymphedema noted Resp: COMMON NORMALS: normal respiratory effort, No retractions, No use of accessory muscles and clear to auscultation bilaterally AUSCULTATION: clear to auscultation bilaterally Cardio: COMMON NORMALS: no JVD, regular rate, regular rhythm and No murmurs present (Cardio) RATE: regular rate RHYTHM: regular rhythm GI: COMMON NORMALS: Soft to palpation and No hepatosplenomegaly present AUSCULTATION: Yes normoactive bowel sounds PALPATION: Yes Soft to palpation, No Tenderness to palpation present (GI), No Guarding due to palpation present (GI) and Yes No hepatosplenomegaly present Extremity: COMMON NORMALS: normal to inspection, capillary refill normal, no clubbing, cyanosis or edema, no calf tenderness and no pedal edema Neuro: SENSORIUM/ORIENTATION: Yes oriented to person, Yes oriented to place and Yes oriented to time Skin: COMMON NORMALS: no rashes or lesions noted GENERAL SKIN EXAM: no rashes or lesions noted Course Vital Signs: Vital signs: Vital Signs Temperature 99.0 F 02/24/21 10:27 Pulse Rate 64 02/24/21 11:43 Respiratory Rate 18 02/24/21 11:43 Blood Pressure 111/53 02/24/21 11:43 Pulse Oximetry 100 02/24/21 11:43 MDM - COVID MDM Narrative: Medical decision making narrative: Her OTC Covid antigen test was positive. Clinically she does appear to have it she is a candidate for monoclonal antibodies because of her asthma she wishes to do will make arrangements for her to go from the emergency room to the monoclonal antibody infusion unit and receive treatment discussed risk benefits alternatives she wishes to proceed COVID Results: No Data to Display Monoclonal Antibody - ED Inclusion/Exclusion Criteria age >/= 12 years, weight >/= 40kg /88lbs, symptom onset less than 10 days ago and + direct Sars-Cov-2 test less than 7-10 days ago chronic lung disease not requiring hospitalization, not requiring oxygen (if not chronically on oxygen) and no increase oxygen requirement (if chronically on oxygen) Patient education patient/family/caregiver received/reviewed fact sheet, Emergency Use Authorization/unapproved drug status discussed with patient/family/caregiver, alternatives to this treatment discussed with patient/family/caregiver, risks and benefits of medication reviewed with patient/family/caregiver, patient/family/caregiver given opportunity for questions, which were answered and patient consents to receiving Monoclonal Antibody Treatment Plan for treatment Meets criteria for Monoclonal Antibody infusion Where are the positive COVID test results, if positive?: Resulted in [facility] (Report of positive home test see note) Ordering Monoclonal Antibody infusion for today Discharge Plan Discharge Patient Disposition: Home Clinical Impression: COVID-19, Asthma Condition: Stable Prescriptions: New dexamethasone 6 mg tablet 6 mg PO DAILY Qty: 7 RF: 0 albuterol sulfate 90 mcg/actuation HFA aerosol inhaler 2 inh INHALATION Q4H PRN (Reason: shortness of breath or wheezing) Qty: 18 RF: 0 No Action buspirone 5 mg Tablet 5 mg PO BID PRN (Reason: Anxiety) RF: 0 Discharge Orders: Discharge ED (Routine); Ordered 02/24/21 Ordered By: Christiano Lane Referrals: Charles Molina MD [Primary Care Provider] - Discharge Diet: Usual diet Discharge Activity: Limit activity as instructed Patient Instructions: Opioid Safety Coding Level of Care Code ED Hr Administrative Assistant for Karie Corbin
[2021-02-24 11:04] VITALS: BP 99/64; PULSE 84; RESP 18; O2SAT 99
[2021-02-24 11:05] VITALS: O2SAT 99
[2021-02-24 11:43] VITALS: BP 111/53; PULSE 64; RESP 18; O2SAT 100
== END 2021-02-24 11:43 | disposition home or self-care (01) ==
PROVIDERS: Emergency Provider Family Medicine; PCP Family Medicine
DX: U07.1 COVID-19 (principal); J45.909 Unspecified asthma, uncomplicated
CPT/HCPCS: 71045; 99282

== ENCOUNTER 2021-02-24 14:00 | Outpatient (CLI) | payer MEDICAID, SELFPAY ==
[2021-02-24 14:09] VITALS: BP 109/53; PULSE 85; RESP 18; TEMP 36.8; O2SAT 98
[2021-02-24 15:12] VITALS: BP 103/62; PULSE 74; RESP 14; TEMP 36.6
== END 2021-02-24 15:32 | disposition home or self-care (01) ==
PROVIDERS: PCP Family Medicine; Visit Provider Family Medicine
DX: U07.1 COVID-19 (principal)
CPT/HCPCS: 96365

== ENCOUNTER → 2021-04-28 11:55 | Outpatient (BNVA) | payer MEDICAID, SELFPAY | PROVIDERS: PCP Family Medicine; Referring Provider Family Medicine; Visit Provider Obstetrics & Gynecology | DX: Z12.4 Encounter for screening for malignant neoplasm of cervix (principal); N92.1 Excessive and frequent menstruation with irregular cycle | CPT/HCPCS: 83001; 84146; 84443; 84702; 85025; 88175 ==

== ENCOUNTER → 2021-05-08 08:10 | Outpatient (BNVA) | payer MEDICAID, SELFPAY | PROVIDERS: PCP Family Medicine; Visit Provider Obstetrics & Gynecology | DX: N92.1 Excessive and frequent menstruation with irregular cycle (principal) | CPT/HCPCS: 76830 ==

== ENCOUNTER → 2021-06-13 09:39 | Outpatient (BNVA) | payer MEDICAID, SELFPAY | PROVIDERS: PCP Family Medicine; Visit Provider Obstetrics & Gynecology | DX: N92.1 Excessive and frequent menstruation with irregular cycle (principal); E03.9 Hypothyroidism, unspecified; K58.9 Irritable bowel syndrome, unspecified | CPT/HCPCS: 84443 ==

== ENCOUNTER → 2021-06-21 08:47 | Outpatient (BNVA) | payer MEDICAID, SELFPAY | PROVIDERS: PCP Family Medicine; Visit Provider Internal Medicine | DX: E03.9 Hypothyroidism, unspecified (principal); E07.9 Disorder of thyroid, unspecified; F41.9 Anxiety disorder, unspecified; Z87.891 Personal history of nicotine dependence | CPT/HCPCS: 99204 ==

== ENCOUNTER 2021-07-24 07:02 | Day surgery (SDC) | payer BC, MEDICAID, SELFPAY ==
[2021-07-18 10:35] VITALS: BMI 30.4
--- NOTE | 2021-07-24 07:18 | ANES.PREANE2 ---
Pre-Anesthetic Assessment Pre-Anesthetic Assessment: Height/Weight: Height 1.52 m Weight 70.76 kg Preop Diagnosis: melena and abdominal pain Proposed Procedure: Operation Date: 07/24/21 08:00 Proposed Procedures p EGD/Colon 72431 R10.9(Not Applicable) - Matti Ornelas MD s Colonoscopy 64075 R10.9(Not Applicable) - Matti Ornelas MD Was Beta Brisa taken within 24 hours: N/A Was Clonidine taken within 24 hours: N/A Social: Social History: Alcohol and No tobacco Exam: Pre-Anes Outpt Exam: alert, oriented x 3, clear to auscultation bilaterally and regular rate & rhythm Airway: Submandibular: WNL Cervical ROM: WNL MP: 1 Dentition: Full History/ROS: Other (History of asthma type episode with 4 hour emergence after D & C) Pulmonary: Comments: Denies asthma CV/HEM: CV/HEM: None reported : : None reported Hepatic: Hepatic: None reported GI: Comments: Occasional GERD IBS Metabolic: Metabolic: Thyroid Musc/skel: Musc/skel: None reported Neuropsych: Neuropsych: Anxiety and Depression Anesthetic Plan: ASA status: 2 Anesthesia: Anesthesia Evaluation, General and MAC Other: We discussed risk and benefits of MAC anesthesia including spectrum of anesthesia and possible recall of intraoperative stimuli including pain/discomfort. Patient agrees to proceed. Risk of > 500 ml blood loss (7ml/kg in children): No PFSH Anesthesia PFSH: Medical History Asthma Surgical History No pertinent past surgical history Family History Grandfather Diabetes paternal Family/Other Diabetes paternal uncle Mother Thyroid disease, Onset Age: 62 Thyroid cancer Grandmother Colon cancer maternal Denies family history of Ovarian cancer Clotting disorder Hyperlipidemia Breast cancer Bleeding disorder Hypertension Uterine cancer Stroke Social History Smoking and tobacco status: former smoker Second hand smoke exposure: No Smoking risk assessment/counseling performed?: Yes Alcohol intake: current Alcohol intake frequency: holidays/special occasions only Desire information about alcohol rehabilitation?: No Counseling given: No Desire information about substance/drug rehabilitation?: No Counseling given: No Adopted: No Caregiver/support person: No Lives independently: Yes Household members: significant other and children Housing: Apartment Marital status: Single Number of children: 2 Highest education level completed: Some College, No Degree service: No Current occupational status: employed History of recent travel: No Female Reproductive History: Date of last menstrual period: 02/08/21 Data Anesthesia Cardiac Studies: No Data to Display
--- NOTE | 2021-07-24 07:24 | W.PM.OPSFHP ---
Same Day Surgery H&P Indication for Procedure/HPI DATE OF PROCEDURE: July 24, 2021 CHIEF COMPLAINT/INDICATIONFOR SURGICAL PROCEDURE: Nausea vomiting nausea vomiting abdominal pain and weight loss PREOP DIAGNOSIS: melena and abdominal pain PLANNED PROCEDRUE: Operation Date: 07/24/21 08:00 Proposed Procedures p EGD/Colon 31535 R10.9(Not Applicable) - Matti Ornelas MD s Colonoscopy 15540 R10.9(Not Applicable) - Matti Ornelas MD Medications/Allergies* Home Medications Medication Instructions Recorded Confirmed Type buspirone 5 mg PO BID PRN 02/07/21 07/18/21 History Allergies/Adverse Reactions Allergy/AdvReac Type Severity Reaction Status Date / Time cucumber Allergy ALGY-Rash Verified 07/06/21 14:46 mushrooms Allergy ALGY-Anaphy Uncoded 04/28/21 11:13 laxis Pertinent History/Comorbid Conditions* Medical History (Updated 07/06/21 @ 15:24 by Matti Ornelas MD) Asthma Surgical History (Updated 06/25/21 @ 11:28 by Ildefonso Daugherty MD) No pertinent past surgical history Family History (Updated 04/28/21 @ 11:17 by Lana Mijares LPN) Colon cancer Grandmother maternal Diabetes Grandfather paternal Family/Other paternal uncle Thyroid disease Mother, Onset Age: 62 Thyroid cancer Denies family history of Ovarian cancer Clotting disorder Hyperlipidemia Breast cancer Bleeding disorder Hypertension Uterine cancer Stroke Social History Smoking and tobacco status: former smoker Second hand smoke exposure: No Smoking risk assessment/counseling performed?: Yes Alcohol intake: current Alcohol intake frequency: holidays/special occasions only Desire information about alcohol rehabilitation?: No Counseling given: No Desire information about substance/drug rehabilitation?: No Counseling given: No Adopted: No Caregiver/support person: No Lives independently: Yes Household members: significant other and children Housing: Apartment Marital status: Single Number of children: 2 Highest education level completed: Some College, No Degree service: No Current occupational status: employed History of recent travel: No Pertinent Exam Findings alert, oriented x 3, clear to auscultation bilaterally, regular rate & rhythm, operative site marked and procedure specific exam findings Recommendations Surgery/Procedure today Coding Level of Care Code Acute Artist Representative for Karie Corbin
[2021-07-24 07:30] VITALS: PULSE 90; RESP 16; TEMP 36.7; O2SAT 100
[2021-07-24] MEDS: sodium chloride 0.9% 1,000 ML 30 ML IV (07:43)
[2021-07-24 08:09] LABS: OR HCG Qualitative Urine Negative (Negative)
[2021-07-24 08:45] VITALS: BP 94/64; PULSE 82; RESP 16; TEMP 36.3; O2SAT 99
[2021-07-24 09:05] VITALS: BP 105/88; PULSE 99; RESP 16; O2SAT 100
--- NOTE | 2021-07-24 13:40 | ANE.PACU2 ---
Inpatient post-anesthesia follow up: Airway intact: Yes Vital signs: Temperature 97.3 F Pulse Rate 99 Respiratory Rate 16 Blood Pressure 105/88 Pulse Oximetry 100 Oxygen Delivery Me thod Room Air Oxygen Flow Rate 4 Fraction of Inspir ed Oxygen Hydration adequate: Yes Nausea and vomiting: No Pain level: 1 Mental status: Baseline Additional Comments: EMR review
[2021-07-25 11:48] LABS: H. Pylori / CLO Test Negative
== END 2021-07-24 09:28 | disposition home or self-care (01) ==
PROVIDERS: Anesthesiology; PCP Family Medicine; Visit Provider Internal Medicine
PROC: 0DJ08ZZ Inspection of Upper Intestinal Tract, Via Natural or Artificial Opening Endoscopic (ICD-10-PCS; CPT 43235; principal; 2021-07-24 08:00)
PROC: 0DJD8ZZ Inspection of Lower Intestinal Tract, Via Natural or Artificial Opening Endoscopic (ICD-10-PCS; CPT 45378; 2021-07-24 08:00)
DX: K29.70 Gastritis, unspecified, without bleeding (principal); K92.1 Melena; R11.2 Nausea with vomiting, unspecified; R63.4 Abnormal weight loss; Z68.30 Body mass index [BMI] 30.0-30.9, adult; J45.909 Unspecified asthma, uncomplicated; Z87.891 Personal history of nicotine dependence
CPT/HCPCS: 43239; 45378; 84703; 87077; 96360; J2704; J7030

== ENCOUNTER 2021-09-12 08:33 | Outpatient (CLI) | payer BC, MEDICAID, SELFPAY ==
[2021-09-12 09:31] LABS: Thyroid Stimulating Hormone 0.41 uIU/mL (0.27-4.20)
[2021-09-13 14:16] LABS: Thyroglobulin AB <1 IU/mL (< or = 1); Thyroid Peroxidase Antobodies 3 IU/mL (<9)
[2021-09-23 18:12] LABS: TSH Receptor Binding Antibody <1.00 IU/L (< OR = 2.00)
== END 2021-09-12 08:34 | disposition home or self-care (01) ==
LOC: LAB 08:40
PROVIDERS: PCP Family Medicine; Visit Provider Internal Medicine
DX: E03.9 Hypothyroidism, unspecified (principal)
CPT/HCPCS: 36415; 83516; 84439; 84443; 86376; 86800

== ENCOUNTER → 2021-09-19 08:46 | Outpatient (BNVA) | payer BC, MEDICAID, SELFPAY | PROVIDERS: PCP Family Medicine; Visit Provider Internal Medicine | DX: E07.9 Disorder of thyroid, unspecified (principal); E03.9 Hypothyroidism, unspecified; R93.5 Abnormal findings on diagnostic imaging of other abdominal regions, including retroperitoneum; F31.9 Bipolar disorder, unspecified; E28.2 Polycystic ovarian syndrome; L68.0 Hirsutism; Z87.891 Personal history of nicotine dependence | CPT/HCPCS: 99214 ==

== ENCOUNTER 2021-12-04 16:43 | Outpatient (CLI) | payer BC, MEDICAID, SELFPAY ==
[2021-12-04 18:00] LABS: Testosterone Total 17.5 ng/dL (8.4-48.1)
[2021-12-04 21:21] LABS: Estmated Average Glucose 80; Hemoglobin A1C 4.4 % (4.0-6.0)
[2021-12-06 07:57] LABS: Dehydroepiandrosterone Sulfate 205 mcg/dL (14-349)
== END 2021-12-04 16:44 | disposition home or self-care (01) ==
LOC: LAB 16:45
PROVIDERS: PCP Family Medicine; Visit Provider Internal Medicine
DX: E07.9 Disorder of thyroid, unspecified (principal); E03.9 Hypothyroidism, unspecified
CPT/HCPCS: 36415; 82627; 83036; 83498; 84403

== ENCOUNTER → 2021-12-22 08:50 | Outpatient (BNVA) | payer BC, MEDICAID, SELFPAY | PROVIDERS: PCP Family Medicine; Visit Provider Internal Medicine | DX: E03.9 Hypothyroidism, unspecified (principal); N92.0 Excessive and frequent menstruation with regular cycle; E28.2 Polycystic ovarian syndrome; F31.9 Bipolar disorder, unspecified; L68.0 Hirsutism; R93.5 Abnormal findings on diagnostic imaging of other abdominal regions, including retroperitoneum; I95.9 Hypotension, unspecified; F17.200 Nicotine dependence, unspecified, uncomplicated | CPT/HCPCS: 99214 ==

== ENCOUNTER → 2022-02-16 12:22 | Outpatient (BNVA) | payer BC, MEDICAID, SELFPAY | PROVIDERS: PCP Family Medicine; Visit Provider Family Medicine Adult Medicine | DX: N39.0 Urinary tract infection, site not specified (principal); N76.0 Acute vaginitis | CPT/HCPCS: 81000 ==

== ENCOUNTER 2022-02-27 07:33 | Outpatient (CLI) | payer BC, SELFPAY ==
--- NOTE | 2022-02-27 07:47 | US_ITS ---
WS: [id number] ULTRASOUND LEFT BREAST HISTORY: LEFT BREAST CYSTIC LESION AT 2 O'CLOCK, 26-year-old. COMPARISON: None available. TECHNIQUE: 2-D and Doppler. Palpable area LEFT breast at the 2:00 axis posteriorly. Ultrasound performed from 1-3 o'clock. There is no mass or abnormality identified. No skin thickening. US/US breast LT limited* [id number] IMPRESSION: BI-RADS: 1-Negative FOLLOW-UP: See Report LACK OF RADIOGRAPHIC EVIDENCE OF MALIGNANCY SHOULD NOT DELAY BIOPSY IF A CLINIC ALLY SUSPICIOUS MASS IS PRESENT.
== END 2022-02-27 07:34 | disposition home or self-care (01) ==
LOC: RAD 07:35
PROVIDERS: Visit Provider Nurse Practitioner Family
DX: N64.4 Mastodynia (principal)
CPT/HCPCS: 76642

== ENCOUNTER 2022-05-07 19:26 | Emergency (ER) | payer BC, MEDICAID, SELFPAY ==
[2022-05-07 19:50] VITALS: BP 114/51; PULSE 84; RESP 16; TEMP 36.6; O2SAT 93
--- NOTE | 2022-05-07 20:35 | CTR_ITS ---
PROCEDURE INFORMATION: Exam: CT Head Without Contrast Exam date and time: 05/07/2022 9:49 PM Age: 26 years old Clinical indication: Injury or trauma; Blunt trauma (contusions or hematomas); Patient HX: Large piece of ice broke loose from ceiling of walk in freezer and hit patient on top of head. C/O FINNEY with dizziness. ; Additional info: Fall/loc TECHNIQUE: Imaging protocol: Computed tomography of the head without contrast. Radiation optimization: All CT scans at this facility use at least one of these dose optimization techniques: automated exposure control; mA and/or kV adjustment per patient size (includes targeted exams where dose is matched to clinical indication); or iterative reconstruction. COMPARISON: No relevant prior studies available. RADIATION DOSE METRICS: Total DLP (mGy-cm): 1084.18 FINDINGS: Brain: Normal. No hemorrhage. Unremarkable white matter. No mass effect. Cerebral ventricles: No ventriculomegaly. Paranasal sinuses: Visualized sinuses are unremarkable. No fluid levels. Mastoid air cells: Visualized mastoid air cells are well aerated. Bones/joints: Unremarkable. No acute fracture. Soft tissues: Unremarkable. CT/CT head wo con* [id number] IMPRESSION: No acute intracranial abnormality.
--- NOTE | 2022-05-07 21:52 | ED_ITS ---
HPI - Head Injury General: Chief complaint: Head Injury Stated complaint: Head Injury Time Seen by Provider: 05/07/22 21:37 Source: patient Mode of arrival: ambulatory Limitations: no limitations History of Present Illness: 26-year-old female states she was cleaning out her freezer and chips and labs she had been down and a large drink of ice it fell and hit her on top of the head states this happened roughly 8 hours ago she states she did have a loss of consciousness she has been having a headache since then she rates a 7 out of 10 denies any neck pain denies any vomiting denies any worsening improving factors. Associated symptoms: Deny nausea, neck pain or vomiting Review of Systems Const: Denies: fever(s), chills, body aches or change in appetite Eyes: Denies: blurry vision or eye discomfort ENMT: Denies: throat pain or dental pain Card: Denies: chest pain Resp: Denies: dyspnea GI: Denies: abdominal pain, nausea, vomiting or diarrhea : Denies: dysuria Musc: Denies: neck pain or back pain Skin/Breast: Denies: rash Neuro: Reports: headache(s) Psych: Denies: depression Tirso/Lymph: Denies: easy bruising All/Imm: Denies: urticaria PFSH ED PFSH: Medical History (Updated 05/07/22 @ 22:40 by Steph Gay MD) No pertinent past medical history Social History (Updated 05/07/22 @ 21:53 by Steph Gay MD) Substance/Drug Use: never Female Reproductive History: Date of last menstrual period: 03/15/22 Physical Exam Const: COMMON NORMALS: no acute distress, patient oriented x3 and healthy appearing HENMT: COMMON NORMALS: normocephalic HEAD & SCALP: normocephalic OTHER: hematoma to posterior scalp Eye: COMMON NORMALS: Equal, round and reactive pupils present and EOMs intact bilaterally PUPIL: Yes Equal, round and reactive pupils present Neck/C-Spine: COMMON NORMALS: full ROM and supple Chest: COMMONS NORMALS: normal inspection of the chest and normal palpation of entire chest wall Resp: COMMON NORMALS: normal respiratory effort, No retractions, No use of accessory muscles and clear to auscultation bilaterally AUSCULTATION: clear to auscultation bilaterally Cardio: COMMON NORMALS: regular rate, regular rhythm and No murmurs present (Cardio) RATE: regular rate RHYTHM: regular rhythm GI: COMMON NORMALS: Normal to inspection, nondistended, normoactive bowel sounds present, Soft to palpation, non-tender and no masses PALPATION: Yes Soft to palpation Extremity: COMMON NORMALS: normal to inspection and full ROM Neuro: COMMON NORMALS: patient oriented x3, moves all extremities and no focal motor deficits Psych: COMMON NORMALS: mental status grossly normal, Normal thought process present and cooperative THOUGHT PROCESS: Normal thought process present Skin: COMMON NORMALS: no rashes or lesions noted and no wounds GENERAL SKIN EXAM: no rashes or lesions noted Course Vital Signs: Vital signs: Vital Signs Temperature 97.8 F 05/07/22 19:50 Pulse Rate 84 05/07/22 19:50 Respiratory Rate 16 05/07/22 19:50 Blood Pressure 114/51 05/07/22 19:50 Pulse Oximetry 93 05/07/22 19:50 Oxygen Delivery Me thod 05/07/22 19:50 MDM - Head Injury Medcial Decision Making Patient presents with a closed head injury she is well-appearing here and likely has a mild concussion head CT is normal she is stable for discharge she is to follow-up with her PCP and return if worsening she understands agrees to plan. Lab Data Radiology Impressions Head CT 05/07/22 20:35 IMPRESSION: No acute intracranial abnormality. Discharge Plan Discharge Patient Disposition: Home Clinical Impression: Closed head injury Prescriptions: No Action Unable to Assess Discharge Orders: Discharge ED (Routine); Ordered 05/07/22 Ordered By: Steph Gay Referrals: Charles Molina MD [Primary Care Provider] - 1-3 days Discharge Diet: Advance as tolerated Discharge Activity: Resume usual activity Coding Level of Care Code ED Manager Editorial for Chg Fwd Exam Comprehensive
== END 2022-05-07 23:21 | disposition home or self-care (01) ==
PROVIDERS: Emergency Provider Emergency Medicine; PCP Family Medicine
DX: S09.8XXA Other specified injuries of head, initial encounter (principal); W20.8XXA Other cause of strike by thrown, projected or falling object, initial encounter
CPT/HCPCS: 70450; 99284

== ENCOUNTER 2022-06-15 12:42 | Outpatient (CLI) | payer BC, MEDICAID, SELFPAY ==
--- NOTE | 2022-06-15 13:00 | MR_ITS ---
WS: [id number] INDICATION: Sacral cyst on outside CT TECHNIQUE: Coronal T1, coronal STIR, sagittal T2 fat sat, axial T2 fat sat imaging. COMPARISON: CT lumbar spine 03/29/22 FINDINGS: Lobulated T2 hyperintense cystic lesions in the sacrum at the S1-S2 levels follows CSF on a ll sequences. Bony expansile remodeling of the surrounding bony sacrum. No bony destruction. Largest cystic lesion LEFT S1-S2 measuring 1.9 x 3.1 x 3.1 cm. Adjacent smaller similar-appearing cystic lesi ons on the RIGHT. These most likely represent incidental Tarlov cysts. Suspected Tarlov cysts are unc hanged since the prior outside lumbar spine CT 03/29/2022 Normal bone marrow signal in the visualized sacrum and ilium. Normal visualized pubic rami. Sacroilia c joints appear normal. Normal visualized soft tissues. MR/MR sacrum wo con* [id number] IMPRESSION: 1. T2 hyperintense lesions most compatible with incidental Tarlov cysts along the proximal S1 neural foramen bilaterally. The largest on the LEFT measures1. 9 x 3.1 x 3.1 cm. If continued concern or patient symptoms this can be further evaluated with gadolinium to ensure no enhancement. 2. Associated benign bony remodeling. Normal bone marrow signal in the sacrum. 3. No other suspicious findings.
== END 2022-06-15 12:43 | disposition home or self-care (01) ==
LOC: RAD 12:43
PROVIDERS: PCP Family Medicine; Visit Provider Family Medicine
DX: M71.38 Other bursal cyst, other site (principal); M54.16 Radiculopathy, lumbar region
CPT/HCPCS: 72148

== ENCOUNTER 2022-11-27 14:13 | Inpatient (IN) | payer BC, SELFPAY ==
[2022-11-27 14:18] VITALS: BP 119/79; PULSE 88; RESP 16; O2SAT 98
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
[2022-11-27 15:26] LABS: Basophils % 0.4 %; Eosinophils # 0.1 10^3/uL (0.0-0.8); Eosinophils % 0.7 %; Hematocrit 37.9 % (37.0-47.0); Hemoglobin 12.6 g/dL (11.5-15.3); Lymphocytes # 1.7 10^3/uL (0.8-4.8); Lymphocytes % 23.6 %; Mean Corpuscular HGB Conc 33.2 g/dL (30.0-36.0); Mean Corpuscular Hemoglobin 29.6 pg (28.0-34.0); Mean Platelet Volume 8.7 fL (7.4-10.4); Monocytes # 0.6 10^3/uL (0.2-0.9); Neutrophils # 4.86 10^3/uL (1.8-7.7); Nucleated Red Blood Cells % 0 %; Platelet Count 222 10^3/cmm (130-400); Red Blood Count 4.26 10^6/uL (4.1-5.3); White Blood Count 7.3 10^3/uL (4.0-10.0)
[2022-11-27 15:43] LABS: Acetaminophen < 5.0 ug/mL (10-30); Alanine Aminotransferase 10 U/L (0-33); Albumin Level 4.6 g/dL (3.5-5.2); Alcohol Level < 10 mg/dL (0-10); Alkaline Phosphatase 59 U/L (35-105); Anion Gap 14.7 (5-19); Aspartate Amino Transferase 15 U/L (0-32); Blood Urea Nitrogen 11 mg/dL (6-20); Calcium 9.3 mg/dL (8.5-10.5); Carbon Dioxide 24 mmol/L (22-29); Chloride 102 mmol/L (98-107); Globulin 2.5 g/dL (1.3-4.6); Glomerular Filtration Rate 119.9 mL/min (90-130); Glucose 88 mg/dL (65-115); Osmolality Calculated 283 mOsm/kg (285-295); Potassium 3.7 mmol/L (3.5-5.1); Salicylate < 0.3 mg/dL (3-10); Sodium 137 mmol/L (136-145); Total Bilirubin 0.4 mg/dL (0.15-1.2); Total Protein 7.1 g/dL (6.6-8.7)
[2022-11-27 17:18] LABS: Add Urine Microscopic? NO; Charge for UA Resulting for Rev
[2022-11-27 17:35] LABS: Bilirubin Urine Neg (Negative); Blood Urine Neg (Negative); Glucose Urine UA Norm (Normal); Ketones Urine Negative (Negative); Leukocyte Esterase Urine Negative (Negative); Nitrate Urine Negative (Negative); Protein Urine Neg (Negative); Urine Appearance Clear (CLEAR); Urine Color Straw (Yellow); Urobilinogen Urine Norm (Negative); pH Urine 6.5 (5-7)
[2022-11-27 17:37] LABS: Amphetamines Screen Urine Negative (Negative); Barbiturates Screen Urine Negative (Negative); Benzodiazepines Screen Urine Negative (Negative); Cocaine Screen Urine Negative (Negative); Opiate Screen Urine Negative (Negative); PCP Screen Urine Negative (Negative); THC Screen Urine Negative (Negative)
[2022-11-27 18:22] VITALS: BP 112/75; PULSE 100; RESP 16; TEMP 36.7; O2SAT 96
[2022-11-27 22:00] VITALS: BP 93/69; PULSE 93; RESP 17; TEMP 36.9; O2SAT 97
[2022-11-28 06:00] VITALS: RESP 18
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
[2022-11-28] MEDS: paliperidone ER 6 mg Tablet PO (11:16)
[2022-11-28] MEDS: fluoxetine 20 mg Capsule PO (11:49)
[2022-11-28 13:04] VITALS: BP 108/69; PULSE 90; RESP 16; TEMP 36.4; O2SAT 98
[2022-11-28] MEDS: acetaminophen 325 mg Tablet 650 MG PO (17:49)
[2022-11-28 19:49] VITALS: BP 104/71; PULSE 92; RESP 17; TEMP 37; O2SAT 98
[2022-11-29 06:00] VITALS: RESP 15
[2022-11-29] MEDS: fluoxetine 20 mg Capsule PO (08:52)
[2022-11-29] MEDS: paliperidone ER 6 mg Tablet PO (08:52)
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
[2022-11-29 11:58] VITALS: BP 101/71; PULSE 91; RESP 18; TEMP 36.9
--- NOTE | 2022-11-29 12:57 | PC.NURSE ---
written discharge instruction discussed and left with patient. returned 160.00 in mukherjee to patient with his other personal belongings. pt state understanding and compliance. pt given her prescription from pharmacy. pt automobile in er parking lot pt walking off unit accompanied by staff to her vehicle;.
== END 2022-11-29 13:00 | disposition home or self-care (01) | DRG 885 ==
LOC: ER 16:50 → NP 17:48
PROVIDERS: Admitting Provider Psychiatry & Neurology Psychiatry; Emergency Provider Family Medicine; PCP Family Medicine; Visit Provider Psychiatry & Neurology Psychiatry
DX: F25.9 Schizoaffective disorder, unspecified (principal); R45.851 Suicidal ideations; F43.12 Post-traumatic stress disorder, chronic; F17.210 Nicotine dependence, cigarettes, uncomplicated
CPT/HCPCS: 36415; 80053; 80306; 80307; 81003; 85025; 97150; 97165; 99238; 99285

== ENCOUNTER → 2022-12-21 11:40 | Outpatient (BNVA) | payer BC, SELFPAY | PROVIDERS: PCP Family Medicine; Visit Provider Nurse Practitioner Psychiatric/Mental Health | DX: Z79.899 Other long term (current) drug therapy (principal) | CPT/HCPCS: 80061; 83036 ==

== ENCOUNTER → 2022-12-31 08:20 | Outpatient (BNVA) | payer BC, SELFPAY | PROVIDERS: PCP Family Medicine; Visit Provider Obstetrics & Gynecology | DX: N92.6 Irregular menstruation, unspecified (principal); N91.5 Oligomenorrhea, unspecified; Z12.4 Encounter for screening for malignant neoplasm of cervix | CPT/HCPCS: 81025; 83001; 84146; 84443; 88175 ==

== ENCOUNTER → 2023-01-25 10:04 | Outpatient (BNVA) | payer BC, MEDICAID, SELFPAY | PROVIDERS: PCP Family Medicine; Visit Provider Obstetrics & Gynecology | DX: N91.5 Oligomenorrhea, unspecified (principal) | CPT/HCPCS: 76830 ==

== ENCOUNTER 2023-01-29 08:17 | Outpatient (CLI) | payer BC, MEDICAID, SELFPAY ==
--- NOTE | 2023-01-29 08:45 | MR_ITS ---
WS: [id number] MRI HEAD WITH CONTRAST WITH PITUITARY PROTOCOL TECHNIQUE: Sagittal T1, T2 axial, T2 axial FLAIR, axial susceptibility weighted imaging, axial diffus ion weighted images, and coronal T2 images were obtained. Pre and post-T1 axial and post T1 coronal i mages. ADC and FSPGR images. Pituitary protocol performed CLINICAL INFORMATION: R79.89 - Other specified abnormal findings of blood chemi... COMPARISON: CT head 2016 FINDINGS: No evidence of restricted diffusion to suggest acute ischemia. Ventricular system and basal cisterns are patent. Normal posterior fossa. Normal vascular flow voids at the skull base. No extra-axial flui d collections. No evidence of mass or mass effect. Mild mucosal thickening in the paranasal sinuses. Normal posterior nasopharynx. Normal parapharyngeal fat. No suspicious intracranial signal abnormalit ies. No hemosiderin on susceptibly weighted images. Normal optic chiasm and pituitary infundibulum. Normal cavernous sinuses and Meckel's cave. Normal en hancing pituitary tissue. No evidence of sella or suprasellar mass. No evidence of microadenoma. No a bnormal gadolinium enhancement. Normal visualized dural venous sinuses. MR/MR head wo/w con [id number] IMPRESSION: 1. Pituitary is normal in appearance. No evidence of pituitary microadenoma. 2. No restricted diffusion to suggest acute ischemia. 3. No suspicious intracranial signal abnormalities. 4. No hemosiderin on susceptibly weighted images.
[2023-01-29] MEDS: gadobenate dimeglumine 20 mL vial IV (09:25)
== END 2023-01-29 08:18 | disposition home or self-care (01) ==
LOC: RAD 08:20
PROVIDERS: PCP Family Medicine; Visit Provider Obstetrics & Gynecology
DX: R79.89 Other specified abnormal findings of blood chemistry (principal)
CPT/HCPCS: 70553; A9577

== ENCOUNTER → 2023-03-11 15:31 | Outpatient (BNVA) | payer BC, SELFPAY | PROVIDERS: PCP Family Medicine; Visit Provider Nurse Practitioner Family | DX: R05.9 Cough, unspecified (principal) | CPT/HCPCS: 87426 ==

== ENCOUNTER → 2023-06-19 16:21 | Outpatient (BNVA) | payer BC, SELFPAY | PROVIDERS: PCP Family Medicine; Visit Provider Nurse Practitioner Psychiatric/Mental Health | DX: Z79.899 Other long term (current) drug therapy (principal) | CPT/HCPCS: 80053; 84146 ==

== ENCOUNTER → 2024-01-20 08:05 | Outpatient (BNVA) | payer BC, MEDICAID, SELFPAY | PROVIDERS: PCP Family Medicine; Visit Provider Family Medicine | DX: Z51.81 Encounter for therapeutic drug level monitoring (principal); E03.9 Hypothyroidism, unspecified | CPT/HCPCS: 80053; 84439; 84443; 85025 ==

== ENCOUNTER 2024-02-04 07:45 | Outpatient (CLI) | payer BC, MEDICAID, SELFPAY ==
--- NOTE | 2024-02-04 07:45 | US_ITS ---
WS: [id number] US pelv w/transvag [id number] HISTORY: Irregular menstrual periods, heavy bleeding, pain COMPARISON: 01/25/2023 Uterus: 7.2 cm x 4.5 cm x 4.4 cm. Normal size anteverted uterus. No fibroid or mass. Endometrium: 0.8 cm. Normal size endometrium. There is a focal area of increased echogenicity and nod ular configuration along the anterior junctional zone. This can be seen with focal adenomyosis. Right ovary: 2.4 cm x 3.4 cm x 1.6 cm. Normal size and vascularity, no cystic or solid masses. Left ovary: Bilobed mass in the LEFT adnexa. There 2 inseparable masses. The entire complex extends o lauren a length of 5.4 cm x 3.1 x 3.2 cm. There are cystic and solid components and increased vascularit y. This may be a hemorrhagic cyst associated with the ovary. Not tubular to suggest hydrosalpinx. Moderate amount of free fluid in the pelvis. US/US pelv w/transvag [id number] IMPRESSION: 1. O RADS 4: Intermediate risk. LEFT adnexal bilobed mass. There are 2 separat e solid and cystic components. Part of this mass is the ovary. This may be hemo rrhagic cyst or additional solid mass associated with the ovary. Both component s contain increased vascularity but also cystic changes. Mass measures 3.1 x 3. 2 x 5.4 cm and needs to be further evaluated by PRODUCT SAFETY EXPERT. Short-term transvaginal pe lvic ultrasound follow-up. MRI evaluation with and without contrast may provide additional information. 2. Moderate amount of free fluid in the pelvis. 3. Subendometrial hyperechoic nodules probably related to adenomyosis within a subendometrial gland.
== END 2024-02-04 07:53 | disposition home or self-care (01) ==
PROVIDERS: PCP Family Medicine; Visit Provider Family Medicine
DX: N83.202 Unspecified ovarian cyst, left side (principal); N80.03 Adenomyosis of the uterus; R10.2 Pelvic and perineal pain
CPT/HCPCS: 76830; 76856; 80053; 84439; 84443; 85025

== ENCOUNTER 2024-02-13 09:07 | Day surgery (SDC) | payer BC, MEDICAID, SELFPAY ==
[2024-02-13] VITALS (8 sets, daily range): BP systolic 88–104; BP diastolic 54–76; PULSE 60–93; RESP 18; TEMP 36.2–36.8; O2SAT 96–99; BMI 32.2
--- NOTE | 2024-02-13 05:40 | W.PM.OPSFHP ---
Same Day Surgery H&P Indication for Procedure/HPI DATE OF PROCEDURE: February 13, 2024 CHIEF COMPLAINT/INDICATIONFOR SURGICAL PROCEDURE: left pelvic pain abnormal uterine bleeding PREOP DIAGNOSIS: left pelvic pain, abnormal uterine bleeding PLANNED PROCEDURE: Operation Date: 02/13/24 10:55 Proposed Procedures p Laparoscopy Diagnostic [id number], R10.2, N94.89, N93.9(Not Applicable) - Len Coronel MD s Laparoscopic Ovarian Cystectomy(Left) - MD dwain Rivas Laparoscopic Salpingo Oophorectomy(Left) - MD dwani Rivas Exploratory Laparotomy(Not Applicable) - MD dwain Rivas Hysteroscopy Hysteroscopy w/ Endometrial Sampling(Not Applicable) - Len Coronel MD s Poylpectomy(Not Applicable) - Len Coronel MD 28 y.o. with heavy uterine bleeding and left pelvic pain has left adnexal complex cyst on ultrasound Medications/Allergies* Allergies/Adverse Reactions Allergy/AdvReac Type Severity Reaction Status Date / Time loratadine [From Claritin] Allergy Severe ADR-Nose Verified 02/11/24 15:04 Bleed mushrooms Allergy ALGY-Anaphy Uncoded 02/11/24 15:04 laxis Pertinent History/Comorbid Conditions* Medical History (Updated 02/10/24 @ 11:16 by Charles Molina MD) Former smoker last cigarette 09/27/23 Mild intermittent asthma Schizoaffective disorder, depressive type NSV (nonspecific vaginitis) Chronic post-traumatic stress disorder Generalized anxiety disorder Panic disorder without agoraphobia Psychiatric care Surgical History (Updated 02/06/23 @ 15:04 by Christelle Boogie) No pertinent past surgical history No pertinent past surgical history Family History (Updated 08/06/22 @ 13:53 by Dillon Shukla NP) Colon cancer Grandmother maternal Diabetes Grandfather paternal Family/Other paternal uncle CAD (coronary artery disease) Cancer Thyroid disease Mother, Onset Age: 62 Thyroid cancer Denies family history of Ovarian cancer Clotting disorder Hyperlipidemia Breast cancer Bleeding disorder Hypertension Uterine cancer Stroke Social History Smoking and tobacco/nicotine status: former use of tobacco/nicotine Quit status (tobacco/nicotine): has quit using Year quit tobacco: 2023 Alcohol intake: current Alcohol intake frequency: few times a month Marital status: Pertinent Exam Findings alert, oriented x 3, clear to auscultation bilaterally and regular rate & rhythm Recommendations Surgery/Procedure today Coding Level of Care Code Acute Code for Chg Fwd Time Spent (min) 30
[2024-02-13] MEDS: scopolamine 1.5 Patch 1 PATCH TRANSDERMA (09:42)
[2024-02-13] MEDS: sodium chloride 0.9% 1,000 ML 30 ML IV (09:44)
[2024-02-13 09:49] LABS: OR HCG Qualitative Urine Negative (Negative)
--- NOTE | 2024-02-13 10:17 | W.PM.OPSUD ---
Surgery/Procedure H&P Update DATE OF PROCEDURE: February 13, 2024 DATE H&P PERFORMED: 02/11/24 H&P UPDATE INFORMATION: I have reviewed H&P completed within last 30 days, I have examined patient prior to procedure and No changes to prior documentation PREOP DIAGNOSIS: left adnexal mass; abnormal uterine bleeding PLANNED PROCEDURE: Operation Date: 02/13/24 10:55 Proposed Procedures p Laparoscopy Diagnostic [id number], R10.2, N94.89, N93.9(Not Applicable) - Len Coronel MD s Laparoscopic Ovarian Cystectomy(Left) - Len Coronel MD s Laparoscopic Salpingo Oophorectomy(Left) - Len Coronel MD s Exploratory Laparotomy(Not Applicable) - Len Coronel MD s Hysteroscopy Hysteroscopy w/ Endometrial Sampling(Not Applicable) - Len Coronel MD s Poylpectomy(Not Applicable) - Len Coornel MD
--- NOTE | 2024-02-13 10:38 | ANES.PREANE2 ---
Pre-Anesthetic Assessment Height/Weight: Height 1.52 m Weight 74.843 kg Temp Pulse Resp BP Pulse Ox O2 Del Method 98.2 F 91 18 104/74 96 Room Air 02/13/24 09:30 02/13/24 09:30 02/13/24 09:30 02/13/24 09:30 02/13/24 09:30 02/13/24 09:30 Preop Diagnosis: left adnexal mass; abnormal uterine bleeding Operation Date: 02/13/24 10:55 Proposed Procedures p Laparoscopy Diagnostic [id number], R10.2, N94.89, N93.9(Not Applicable) - Len Coronel MD s Laparoscopic Ovarian Cystectomy(Left) - Len Coronel MD s Laparoscopic Salpingo Oophorectomy(Left) - Len Coronel MD s Exploratory Laparotomy(Not Applicable) - Len Coronel MD s Hysteroscopy Hysteroscopy w/ Endometrial Sampling(Not Applicable) - Len Coronel MD s Poylpectomy(Not Applicable) - Len Coronel MD Familial anesthetic complications: None Was Beta Brisa taken within 24 hours: N/A Was Clonidine taken within 24 hours: N/A Last intake: Intake Last Liquid Date 02/12/24 Last Liquid Time 21:00 Last Solid Date 02/12/24 Last Solid Time 19:00 Social No alcohol and No tobacco Exam alert, oriented x 3, clear to auscultation bilaterally and regular rate & rhythm Airway Mallampati: Class II Dentition: full Pulmonary Asthma Metabolic Thyroid Disease PCOS Anesthetic Plan ASA status: 2 Anesthesia: General Risk of > 500 ml blood loss (7ml/kg in children): No Medications/Allergies Home Medications Medication Instructions Recorded Confirmed Last Taken Type aripiprazole 15 mg tablet (Abilify) 15 mg PO .morning #30 tabs 12/31/23 02/12/24 02/12/24 Rx divalproex 500 mg tablet,delayed 500 mg PO .7 pm #30 tabs 12/31/23 02/12/24 02/11/24 Rx release (Depakote) Allergies Allergy/AdvReac Type Severity Reaction Status Date / Time loratadine [From Claritin] Allergy Severe ADR-Nose Verified 02/11/24 15:04 Bleed mushrooms Allergy ALGY-Anaphy Uncoded 02/11/24 15:04 laxis Current Medications Generic Name Dose Route Start Last Admin Trade Name Larry PRN Reason Stop Dose Admin Sodium Chloride 1,000 mls @ 30 mls/hr 02/13/24 09:15 02/13/24 09:44 Sodium Chloride 0.9% IV 02/14/24 09:14 30 mls/hr .Q24H EDWIN Administration PFSH Anesthesia Medical History Former smoker last cigarette 09/27/23 Mild intermittent asthma Schizoaffective disorder, depressive type NSV (nonspecific vaginitis) Chronic post-traumatic stress disorder Generalized anxiety disorder Panic disorder without agoraphobia Psychiatric care Surgical History No pertinent past surgical history No pertinent past surgical history Family History Grandfather Diabetes paternal Family/Other Diabetes paternal uncle Mother Thyroid disease, Onset Age: 62 Thyroid cancer Grandmother Colon cancer maternal Other CAD (coronary artery disease) Cancer Denies family history of Ovarian cancer Clotting disorder Hyperlipidemia Breast cancer Bleeding disorder Hypertension Uterine cancer Stroke Social History Smoking and tobacco/nicotine status: former use of tobacco/nicotine Quit status (tobacco/nicotine): has quit using Year quit tobacco: 2023 Alcohol intake: current Alcohol intake frequency: few times a month Marital status: Data Anesthesia Cardiac Studies: No Data to Display
[2024-02-13] MEDS: acetaminophen 500 mg Tablet 1000 MG PO (13:09)
--- NOTE | 2024-02-13 13:10 | P.OP_ITS ---
Operative Report Date of procedure: February 13, 2024 Pre-op diagnosis: Left pelvic pain Left adnexal mass Abnormal uterine bleeding Post-op diagnosis: same Post-op diagnosis: Left pelvic pain Left adnexal mass Abnormal uterine bleeding 2-3 cm left tubal mass Post-op findings: normal uterus normal ovaries normal right fallopian tube left fallopian tube with 2-3 cm mass at proximal end of tube, close to uterus remainder of left fallopian tube was normal otherwise, normal pelvis and sidewalls Procedure done: laparoscopic left partial salpingectomy hysteroscopy curettage of uterus Implants: none Specimens removed/disposition: partial left fallopian tube segment Endometrial curettings Surgeon: Len Coronel MD Anesthesia: General Estimated blood loss (mL): 10 Complications: none Findings: normal uterus normal ovaries normal right fallopian tube left fallopian tube with 2-3 cm mass at proximal end of tube, close to uterus remainder of left fallopian tube was normal otherwise, normal pelvis and sidewalls Condition: stable Disposition: PACU Brief History: 28 y.o. With 2-month h/o left pelvic pain and irregular uterine bleeding Procedure: Informed consent was obtained. The patient was taken to the OR and placed on the table. General endotracheal anesthesia was induced. The patient was then placed in dorsolithotomy position. The abdomen and perineum were then prepped and draped in the usual fashion. A Hernandez catheter was placed. A 5 mm subumbilical skin incision was made. A 5 mm trocar with sheath was then inserted into the peritoneal cavity under direct visualization with the laparoscope. After confirming intraperitoneal position, pneumoperitoneum was achieved. Two separate 5 mm incisions were made in the right and left mid-quadrants. 5 mm trocars with sheaths were then inserted into the peritoneal cavity under direct visualization with the laparoscope. The uterus was seen to be normal. The right fallopian tube was normal. The left fallopian tube had a 2-3 cm dilated mass at its proximal end close to the uterus, otherwise it was normal. There were no other abnormalities seen. The left tubal mass was isolated using the Ligasure device and removed. An 11 mm trocar with sheath was placed in the subumbilical incision to facilitate its extraction. The pelvis was inspected and found to be hemostatic and normal All instruments were then removed from the peritoneal cavity after the pneumoperitoneum was allowed to escape. The subumbilical fasica was closed using a stitch of O-Vicryl. The skin incisions were closed using 3-O plain in subcuticular fashion. Dermabond was applied. A bivalve speculum was placed in the vagina. The anterior lip of the cervix was grasped with a sharp-toothed tenaculum. The cervix was serially dilated with Hegar dilators. . A hysteroscope was placed into the endometrial cavity. The endometrial cavity was seen to be normal with moderate amount of endometrial tissue. There were no polyps or fibroids. The hysteroscope was then removed. Endometrial curettage was done with a sharp curette. Endometrial tissue was sent to pathology. The sharp-toothed tenaculum was removed. There was bleeding from the tenaculum site. Bleeding was controlled using a stitch of O- Chromic. The speculum was then removed. The patient was then placed supine and awakened and taken to the PACU. Postop condition: stable EBL: 10 cc Sponge and instruments counts were normal x 2 Complications: none
--- NOTE | 2024-02-13 13:50 | ANE.PACU2 ---
Inpatient post-anesthesia follow up: Airway intact: Yes Vital signs: Temperature 97.1 F Pulse Rate 72 Respiratory Rate 18 Blood Pressure 98/65 Pulse Oximetry 98 Oxygen Delivery Me thod Room Air Oxygen Flow Rate Fraction of Inspir ed Oxygen Hydration adequate: Yes Nausea and vomiting: Yes Pain level: 1 Mental status: Baseline
== END 2024-02-13 13:54 | disposition home or self-care (01) ==
PROVIDERS: Anesthesiology; PCP Family Medicine; Visit Provider Obstetrics & Gynecology
PROC: (CPT 49320; principal; 2024-02-13 10:45)
PROC: (CPT 58662; 2024-02-13 10:45)
PROC: 0UJD8ZZ Inspection of Uterus and Cervix, Via Natural or Artificial Opening Endoscopic (ICD-10-PCS; CPT 58555; 2024-02-13 10:45)
DX: N93.9 Abnormal uterine and vaginal bleeding, unspecified (principal); R10.2 Pelvic and perineal pain; N83.9 Noninflammatory disorder of ovary, fallopian tube and broad ligament, unspecified; E28.2 Polycystic ovarian syndrome; Z87.891 Personal history of nicotine dependence
CPT/HCPCS: 58558; 58661; 51702; 81025; 88302; 88305; J1100; J1885; J2405; J2704; J2710; J3010; J3490; J7030

== ENCOUNTER 2024-03-19 11:17 | Inpatient (IN) | payer BC, SELFPAY ==
--- NOTE | 2024-03-19 11:33 | ED_ITS ---
HPI - SOB/Dyspnea 2 General: Chief Complaint: Psychiatric Symptoms Stated Complaint: SI Time Seen by Provider: 03/19/24 11:21 Source: patient Mode of arrival: ambulatory Limitations: no limitations History of Present Illness: HPI Narrative: 28-year-old female has a long history de pression states she has had much worsening depression last 2 weeks states she has had some passing of intrusive suicidal thoughts but denies any specific plans and does not feel like she is going to actually harm herself. She states she does voluntarily want to get help and be admitted to the psych [facility] for her worsening depression at this time. Associated symptoms: Deny abdominal pain, chest pain, fever(s), nausea or vomiting Related Data Home Medications Medication Instructions Recorded Confirmed aripiprazole 20 mg tablet (Abilify) 20 mg PO QAM 03/19/24 03/19/24 folic acid 1 mg tablet 1 mg PO DAILY 03/19/24 03/19/24 Previous Rx's Medication Instructions Recorded divalproex 500 mg tablet,delayed 500 mg PO .7 pm #30 tabs 12/31/23 release (Depakote) Allergies Allergy/AdvReac Type Severity Reaction Status Date / Time loratadine [From Claritin] Allergy Severe ADR-Nose Verified 03/04/24 11:02 Bleed mushrooms Allergy ALGY-Anaphy Uncoded 03/04/24 11:02 laxis Review of Systems 2 Const: Denies: fever(s), chills, body aches or change in appetite ENMT: Denies: throat pain or dental pain Card: Denies: chest pain Resp: Denies: dyspnea GI: Denies: abdominal pain, nausea, vomiting or diarrhea Musc: Denies: neck pain or back pain Skin/Breast: Denies: rash Neuro: Denies: headache(s) Psych: Reports: depression PFSH ED 2 PFSH: Medical History Former smoker last cigarette 09/27/23 Mild intermittent asthma Schizoaffective disorder, depressive type NSV (nonspecific vaginitis) Chronic post-traumatic stress disorder Generalized anxiety disorder Panic disorder without agoraphobia Psychiatric care Surgical History No pertinent past surgical history No pertinent past surgical history Family History Grandfather Diabetes paternal Family/Other Diabetes paternal uncle Mother Thyroid disease, Onset Age: 62 Thyroid cancer Grandmother Colon cancer maternal Other CAD (coronary artery disease) Cancer Denies family history of Ovarian cancer Clotting disorder Hyperlipidemia Breast cancer Bleeding disorder Hypertension Uterine cancer Stroke Social History Smoking and tobacco/nicotine status: former use of tobacco/nicotine Physical Exam 2 Const: COMMON NORMALS: no acute distress, patient oriented x3 and healthy appearing HENMT: COMMON NORMALS: normocephalic and atraumatic HEAD & SCALP: n ormocephalic and atraumatic Eye: COMMON NORMALS: conjunctivae normal CONJUNCTIVA: Yes conjunctivae normal Neck/C-Spine: COMMON NORMALS: full ROM and supple Chest: COMMONS NORMALS: normal inspection of the chest Resp: COMMON NORMALS: normal respiratory effort Cardio: COMMON NORMALS: regular rate, regular rhythm and No murmurs present (Cardio) RATE: regular rate RHYTHM: regular rhythm Extremity: COMMON NORMALS: normal to inspection and full ROM Neuro: COMMON NORMALS: patient oriented x3, moves all extremities and no focal motor deficits Psych: COMMON NORMALS: mental status grossly normal, Normal thought process present and cooperative THOUGHT PROCESS: Normal thought process present Skin: COMMON NORMALS: no rashes or lesions noted and no wounds GENERAL SKIN EXAM: no rashes or lesions noted MDM - SOB/Dyspnea Medical Decision Making Patient presents here with depression patient has no suicidal plan she voluntarily wants to be admitted I did speak to psychiatrist will admit on a voluntary status she is medically cleared. Medical Records I reviewed the patient's medical records. Lab Data I reviewed the patient's lab results. 03/19/24 11:48 03/19/24 11:48 Labs/Radiology: Laboratory Results WBC 6.38 10^3/uL (3.29-11.43) 03/19/24 11:48 RBC 4.16 10^6/uL (3.85-5.65) 03/19/24 11:48 Hgb 13.20 g/dL (11.27-16.99) 03/19/24 11:48 Hct 38.0 % (36-47) 03/19/24 11:48 MCV 91.3 fl (85-98) 03/19/24 11:48 MCH 31.7 pg (27-33) 03/19/24 11:48 MCHC 34.7 g/dL (30-55) 03/19/24 11:48 RDW 12.0 % (12.1-15.1) L 03/19/24 11:48 Plt Count 201 10^3/cmm (157-399) 03/19/24 11:48 MPV 9.0 fL (7.4-10.4) 03/19/24 11:48 Neut % (Auto) 65.5 % 03/19/24 11:48 Lymph % (Auto) 25.9 % 03/19/24 11:48 [place] % (Auto) 6.7 % 03/19/24 11:48 Eos % (Auto) 0.8 % 03/19/24 11:48 Baso % (Auto) 0.8 % 03/19/24 11:48 Neut # (Auto) 4.18 10^3/uL (1.8-7.7) 03/19/24 11:48 Lymph # (Auto) 1.7 10^3/uL (0.8-4.8) 03/19/24 11:48 [place] # (Auto) 0.4 10^3/uL (0.2-0.9) 03/19/24 11:48 Eos # (Auto) 0.1 10^3/uL (0.0-0.8) 03/19/24 11:48 Baso # (Auto) 0.1 10^3/uL (0.0-0.1) 03/19/24 11:48 Nucleated RBC % (auto) 0 % 03/19/24 11:48 Nucleated RBCs # 0.0 /100WBC 03/19/24 11:48 Sodium 139 mmol/L (136-145) 03/19/24 11:48 Potassium 3.7 mmol/L (3.5-5.1) 03/19/24 11:48 Chloride 105 mmol/L (98-107) 03/19/24 11:48 Carbon Dioxide 21 mmol/L (22-29) L 03/19/24 11:48 Anion Gap 16.7 (5-19) 03/19/24 11:48 BUN 11 mg/dL (6-20) 03/19/24 11:48 Creatinine 0.6 mg/dL (0.5-0.9) 03/19/24 11:48 GFR Calculation 119.0 mL/min (90-130) 03/19/24 11:48 Glucose 84 mg/dL (65-115) 03/19/24 11:48 Calculated Osmolality 287 mOsm/kg (285-295) 03/19/24 11:48 Calcium 8.7 mg/dL (8.5-10.5) 03/19/24 11:48 Total Bilirubin 0.6 mg/dL (0.15-1.2) 03/19/24 11:48 AST 13 U/L (0-32) 03/19/24 11:48 ALT 10 U/L (0-33) 03/19/24 11:48 Alkaline Phosphatase 50 U/L (35-105) 03/19/24 11:48 Total Protein 6.8 g/dL (6.6-8.7) 03/19/24 11:48 Albumin 4.3 g/dL (3.5-5.2) 03/19/24 11:48 Globulin 2.5 g/dL (1.3-4.6) 03/19/24 11:48 Salicylates < 0.3 mg/dL (3-10) L 03/19/24 11:48 Acetaminophen < 5.0 ug/mL (10-30) L 03/19/24 11:48 Valproic Acid 2.8 ug/mL (50-100) L 03/19/24 11:48 Ethyl Alcohol < 10 mg/dL (0-10) 03/19/24 11:48 No radiology studies performed this visit Discharge Plan Discharge Admit Provider: Carter Whitten Condition: Stable Coding Level of Care Code ED Agriculture Consultant for Karie Corbin
[2024-03-19 11:57] LABS: Basophils # 0.1 10^3/uL (0.0-0.1); Basophils % 0.8 %; Eosinophils # 0.1 10^3/uL (0.0-0.8); Eosinophils % 0.8 %; Lymphocytes # 1.7 10^3/uL (0.8-4.8); Lymphocytes % 25.9 %; Mean Corpuscular HGB Conc 34.7 g/dL (30-55); Mean Corpuscular Hemoglobin 31.7 pg (27-33); Mean Corpuscular Volume 91.3 fl (85-98); Monocytes # 0.4 10^3/uL (0.2-0.9); Monocytes % 6.7 %; Neutrophils # 4.18 10^3/uL (1.8-7.7); Neutrophils % 65.5 %; Nucleated Red Blood Cells % 0 %; Platelet Count 201 10^3/cmm (157-399); Red Blood Count 4.16 10^6/uL (3.85-5.65); White Blood Count 6.38 10^3/uL (3.29-11.43)
[2024-03-19 12:16] LABS: Alanine Aminotransferase 10 U/L (0-33); Albumin Level 4.3 g/dL (3.5-5.2); Alkaline Phosphatase 50 U/L (35-105); Anion Gap 16.7 (5-19); Aspartate Amino Transferase 13 U/L (0-32); Blood Urea Nitrogen 11 mg/dL (6-20); Calcium 8.7 mg/dL (8.5-10.5); Carbon Dioxide 21 mmol/L (22-29); Chloride 105 mmol/L (98-107); Globulin 2.5 g/dL (1.3-4.6); Glucose 84 mg/dL (65-115); Osmolality Calculated 287 mOsm/kg (285-295); Potassium 3.7 mmol/L (3.5-5.1); Sodium 139 mmol/L (136-145); Total Bilirubin 0.6 mg/dL (0.15-1.2); Total Protein 6.8 g/dL (6.6-8.7)
[2024-03-19 12:18] LABS: Valproic Acid Level 2.8 ug/mL (50-100)
[2024-03-19 12:26] LABS: Salicylate < 0.3 mg/dL (3-10)
[2024-03-19 12:27] LABS: Acetaminophen < 5.0 ug/mL (10-30); Alcohol Level < 10 mg/dL (0-10)
[2024-03-19 12:55] VITALS: BP 108/73; PULSE 77; RESP 20; TEMP 36.8; O2SAT 100
[2024-03-19 13:10] LABS: HCG Qualitative Urine. Negative (Negative)
[2024-03-19 13:17] VITALS: BP 99/64; PULSE 66; RESP 17; O2SAT 98
[2024-03-19 13:18] LABS: Amphetamines Screen Urine Negative (Negative); Barbiturates Screen Urine Negative (Negative); Benzodiazepines Screen Urine Negative (Negative); Cocaine Screen Urine Negative (Negative); Opiate Screen Urine Negative (Negative); PCP Screen Urine Negative (Negative); THC Screen Urine Positive (Negative)
[2024-03-19] MEDS: hyDROXYzine 25 mg Capsule 50 MG PO ×2 (13:59→20:31)
--- NOTE | 2024-03-19 14:38 | PC.ADMIT ---
[address] Admission Note: The patient,Kayla Rowley,28 y/o, was given written information regarding hospital policies, unit procedures and contact persons. Patient's smoking status: former smoker.VAPES DAILY Vital Signs - 8 hr 03/19/24 12:55 03/19/24 13:17 03/19/24 14:24 Temperature 98.3 F Pulse Rate 77 66 Respiratory Rate 20 H 17 Blood Pressure 108/73 99/64 Pulse Oximetry 100 98 Oxygen Delivery Method Room Air Room Air ADMITTED FROM [facility] ER VIA ER, SECURITY AND ER STAFF AT 1320. PT IS ADMITTED ON VOLUNTARY STATUS. PT STATES SHE IS HERE DUE TO HAVING INTRUSIVE SUICIDAL THOUGHTS THAT HAS GOTTEN WORSE THE PAST WEEK AND I DON'T THINK MY MEDS ARE WORKING ANYMORE. THIS RN CALLED [facility] TO VERIFY MEDICATIONS AND ARE FOLLOWS: ABILIY 20 MG Q DAY, FOLIC ACID 1 MG Q DAY AND DEPAKOTE DR [address] WOLFF NOTIFIED OF CURRENT MEDICATIONS AND ORDERS RECEIVED TO START ALL HOME MEDICATIONS. PT STATES SHE IS HAVING MORE PANIC ATTACKS LATELY AND IT IS MAKING IT DIFFICULTY FOR HER TO WORK. PT RATES ANXIETY AND DEPRESSION /. THIS RN GAVE PT VISTARIL 50 MG ORDERED FOR INCREASED ANXIETY. PT WEARS GLASSES, DENIES PAIN. REPORTS SHE HAS HAD INTRUSIVE SUICIDAL THOUGHTS BUT CURRENTLY HAS NO PLAN AND DENIES BEING SUICIDAL AT THE MOMENT BECAUSE SHE STATES I WOULDN'T DO IT I JUST THINK ABOUT IT. DENIES HI AND ENDORSES AVH IN THE PAST STATING SHE SEES SHADOWS AND HEARS CHATTERING LIKE I'M IN A CROWD. PT CURRENTLY DENIES AVH AT THIS TIME BUT DOERS STATE IT HAPPENS. RN AND WOOD PLANER DRESSED OUT PT AND NO SKIN ISSUES WERE IDENTIFIED AT THAT TIME. PT IS ALLERGIC TO MUSHROOMS AND CLARITIN. PT STATES SHE DOES TAKE HER MEDICATIONS PRESCRIBED. REPORTS BEING IN THE NPU IN THE PAST YEAR. PT SEES [facility]ICATIONS AND THERAPY. STATES SHE HAD A SUICIDE ATTEMPT 8 YEARS AGOBY OVERDOSE. PT WAS ORIENTATED TO UNIT, SAFETY RULES, GUIDELINES AND MEAL/SNACK TIMES. ALL QUESTIONS WERE ANSWERED AND SUPPORT WAS VOICED.
[2024-03-19 16:00] VITALS: BP 100/64; PULSE 84; RESP 18; TEMP 36.9; O2SAT 99
[2024-03-19] MEDS: nicotine 2 mg Gum BUCCAL (17:40)
[2024-03-19 20:00] VITALS: BP 109/74; PULSE 79; RESP 16; TEMP 36.3; O2SAT 99
[2024-03-19] MEDS: divalproex DR 500 mg Tablet PO (20:31)
[2024-03-19] MEDS: trazodone 50 mg Tablet PO (20:31)
[2024-03-19] MEDS: ARIPiprazole 10 mg Tablet 20 MG PO (20:31)
[2024-03-20] VITALS (7 sets, daily range): BP systolic 75–105; BP diastolic 44–72; PULSE 69–100; RESP 15–18; TEMP 36.6–36.8; O2SAT 98–100
[2024-03-20] MEDS: folic acid 1 mg Tablet PO (07:55)
[2024-03-20] MEDS: nicotine 2 mg Gum BUCCAL ×2 (07:55→15:24)
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
[2024-03-20] MEDS: sertraline 50 mg Tablet 25 MG PO (13:10)
[2024-03-20] MEDS: CLONazepam 0.5 mg Tablet 0.25 MG PO ×2 (13:10→17:37)
[2024-03-20] MEDS: ARIPiprazole 10 mg Tablet 20 MG PO (20:31)
[2024-03-20] MEDS: trazodone 50 mg Tablet PO (20:32)
[2024-03-20] MEDS: hyDROXYzine 25 mg Capsule 50 MG PO (20:33)
[2024-03-21] VITALS: BP 80/52; PULSE 84; RESP 16; TEMP 36.5; O2SAT 97
[2024-03-21 04:00] VITALS: BP 108/70; PULSE 70; RESP 16; O2SAT 98
[2024-03-21 08:00] VITALS: BP 92/61; PULSE 126; RESP 18; TEMP 36.6; O2SAT 98
[2024-03-21] MEDS: folic acid 1 mg Tablet PO (08:30)
[2024-03-21] MEDS: CLONazepam 0.5 mg Tablet 0.25 MG PO ×2 (08:30→17:02)
[2024-03-21] MEDS: sertraline 50 mg Tablet 25 MG PO (08:30)
[2024-03-21] MEDS: nicotine 2 mg Gum BUCCAL (08:34)
[2024-03-21 12:00] VITALS: BP 90/50; PULSE 73; RESP 18; TEMP 36.8; O2SAT 98
[2024-03-21] MEDS: ARIPiprazole 10 mg Tablet 20 MG PO (12:38)
--- NOTE | 2024-03-21 13:19 | W.PM.NPUPNS ---
Subjective NPU Subjective: 20-year-old female schizoaffective disorder, panic attacks, and PTSD admitted with worsening depression and anxiety. The patient reported that she was feeling a little bit better today. She had continued to report having nightmares on a nearly nightly basis. She reported no side effects from her medications. Patient had reported significant anxiety related to the work situation as it had brought back bad memories of having lost her child at . Patient reported no feelings of hopelessness today. She had continued report depressed mood and continued reports stress regarding her job stating that she was uncertain about whether she could maintain her employment there. She was compliant on the milieu. She had reported that Abilify had been helpful for energy and requested that it be prescribed daily instead of nightly. She reports auditory hallucinations as infrequent with no negative commentary from the hallucinations noted. Mental Status Exam MSE Comments: This is an overweight versus obese white person in hospital scrubs with adequate grooming and eye contact. No abnormal involuntary motor movements. She was cooperative exam in moderate distress. Speech was normal rate, rhythm and volume. Mood described as a little bit better. Her affect was restricted in range and mood-congruent. Thought process was linear, logical and organized. Thought content: Showed no evidence of homicidal ideation. She had endorsed having less intrusive thoughts of suicidal with no active plan. She denied visual hallucinations but endorsed fleeting auditory hallucinations currently and did appear to be responding to internal stimuli. Attention and concentration were intact and memory was reliable but none were formally tested. She is alert and oriented x3. Insight was improving. Her judgment is poor. Her impulse control is poor. Vitals/I&O/Wt Last Vital Signs Temp 97.9 F 03/21/24 08:00 Pulse 126 H 03/21/24 08:00 Resp 18 03/21/24 08:00 BP 92/61 03/21/24 08:00 Pulse Ox 98 03/21/24 08:00 O2 Del Method Room Air 03/21/24 08:00 Data NPU 03/19/24 11:48 03/19/24 11:48 A&P Assessment and plan (1) Schizoaffective disorder, depressive type: (2) Suicidal ideation: (3) Chronic post-traumatic stress disorder: (4) Generalized anxiety disorder: (5) Panic disorder without agoraphobia: Plan Patient is a 28-year-old white female admitted with worsening depression and suicidal ideation with a history of PTSD and schizoaffective disorder depressed type. 1.? ? Engage? patient in individual ,milieu, and group therapy ?2. ? We will attempt to gather collateral information from previous providers ?3. ? TO-15 minute checks on the unit. 4. Continue Abilify 20mg in am, continue zoloft with increase to 50mg daily and continue klonopin .25mg bid, likely zoloft 25mg daily. Continue Prazosin 2mg at night to target PTSD associated nightmares. Involuntary Hold Information 96 Hour Hold: 96 Hour Involuntary Admission: No Attestations NPU Medical Necessity Statement*: Inpatient hospitalization is medically necessary and the clinically appropriate intervention at this time. We will monitor medications and make changes as indicated. Likely length of stay 2-4 days. Coding Level of Care Code Acute Code for [facility] Fwd Diagnoses Schizoaffective disorder, depressive type F25.1 Suicidal ideation R45.851 Chronic post-traumatic stress disorder F43.12 Generalized anxiety disorder F41.1 Panic disorder without agoraphobia F41.0
[2024-03-21 16:00] VITALS: BP 103/68; PULSE 85; RESP 16; TEMP 36.6; O2SAT 96
[2024-03-21] MEDS: acetaminophen 325 mg Tablet 650 MG PO (17:02)
[2024-03-21 19:48] VITALS: BP 75/46; PULSE 86; RESP 18; TEMP 36.8; O2SAT 97
[2024-03-22] VITALS: BP 101/66; PULSE 61; RESP 18; TEMP 36.7; O2SAT 98
[2024-03-22 04:00] VITALS: BP 90/52; PULSE 78; RESP 18; TEMP 36.7; O2SAT 98
[2024-03-22 08:00] VITALS: BP 92/65; PULSE 103; RESP 17; TEMP 36.7; O2SAT 97
[2024-03-22] MEDS: folic acid 1 mg Tablet PO (08:10)
[2024-03-22] MEDS: ARIPiprazole 10 mg Tablet 20 MG PO (08:10)
[2024-03-22] MEDS: sertraline 50 mg Tablet PO (08:10)
[2024-03-22] MEDS: CLONazepam 0.5 mg Tablet 0.25 MG PO (08:11)
[2024-03-22] MEDS: nicotine 2 mg Gum BUCCAL ×2 (09:45→11:24)
[2024-03-22 12:00] VITALS: BP 111/72; PULSE 117; RESP 16; TEMP 36.4; O2SAT 99
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
[2024-03-22 13:07] VITALS: BP 92/65; PULSE 103; RESP 17; TEMP 36.7; O2SAT 97
== END 2024-03-22 14:32 | disposition home or self-care (01) | DRG 885 ==
LOC: ER 11:37 → NP 12:30
PROVIDERS: Admitting Provider Psychiatry & Neurology Psychiatry; Emergency Provider Emergency Medicine; PCP Family Medicine; Visit Provider Psychiatry & Neurology Psychiatry
DX: F25.1 Schizoaffective disorder, depressive type (principal); R45.851 Suicidal ideations; Z87.891 Personal history of nicotine dependence; J45.20 Mild intermittent asthma, uncomplicated; F43.12 Post-traumatic stress disorder, chronic; F41.1 Generalized anxiety disorder; F41.0 Panic disorder [episodic paroxysmal anxiety]; E28.2 Polycystic ovarian syndrome
CPT/HCPCS: 36415; 80053; 80164; 80306; 80307; 81025; 85025; 97150; 97165; 99285

== ENCOUNTER → 2024-03-26 09:36 | Outpatient (BNVA) | payer BC, MEDICAID, SELFPAY | PROVIDERS: PCP Family Medicine; Visit Provider Nurse Practitioner Psychiatric/Mental Health | DX: Z79.899 Other long term (current) drug therapy (principal) | CPT/HCPCS: 80061; 83036; 84146 ==

== ENCOUNTER → 2024-04-13 18:34 | Outpatient (BNVA) | payer BC, SELFPAY | PROVIDERS: PCP Family Medicine; Visit Provider Nurse Practitioner | DX: R39.9 Unspecified symptoms and signs involving the genitourinary system (principal); R30.0 Dysuria | CPT/HCPCS: 81000; 87086 ==

== ENCOUNTER → 2024-04-22 10:31 | Outpatient (BNVA) | payer BC, SELFPAY | PROVIDERS: PCP Family Medicine; Visit Provider Nurse Practitioner Psychiatric/Mental Health | DX: Z79.899 Other long term (current) drug therapy (principal) | CPT/HCPCS: 80307 ==

== ENCOUNTER → 2024-08-10 15:03 | Outpatient (BNVA) | payer BC, SELFPAY | PROVIDERS: PCP Family Medicine; Visit Provider Family Medicine | DX: N92.6 Irregular menstruation, unspecified (principal); Z51.81 Encounter for therapeutic drug level monitoring; E55.9 Vitamin D deficiency, unspecified | CPT/HCPCS: 80053; 82306; 84439; 84443; 85025 ==

== ENCOUNTER 2024-08-15 10:49 | Emergency (ER) | payer BC, MEDICAID, SELFPAY ==
[2024-08-15 11:11] VITALS: BP 121/78; PULSE 96; RESP 17; TEMP 36.7; O2SAT 94; BMI 32.2
--- NOTE | 2024-08-15 11:51 | ED_ITS ---
HPI - Abdominal Pain 2 General: Chief Complaint: Abdominal Pain Stated Complaint: abd pain Time Seen by Provider: 08/15/24 11:49 History of Present Illness: 28-year-old female presents emergency ro om complaining of pelvic pain. She had similar pain last year she ended up having a laparoscopy done they did a left oophorectomy and salpingectomy there was a mass on the proximal portion of the fallopian tube pathology showed benign tissue with no atypical findings. Associated Symptoms: Denies chills, dysuria and fever(s) Related Data Previous Rx's Medication Instructions Recorded magnesium citrate 150 ml PO BID PRN constipation 08/15/24 #296 mL polyethylene glycol 3350 17 17 g PO DAILY #850 grams 08/15/24 gram/dose oral powder (Miralax) Allergies Allergy/AdvReac Type Severity Reaction Status Date / Time loratadine [From Claritin] Allergy Severe ADR-Nose Verified 06/04/24 10:00 Bleed mushroom Allergy ALGY-Anaphy Verified 06/04/24 10:00 laxis Review of Systems 2 Const: Denies: fever(s) or chills Card: Denies: chest pain Resp: Denies: dyspnea GI: Denies: abdominal pain : Denies: dysuria, urinary frequency or urinary urgency Musc: Denies: neck pain or back pain Skin/Breast: Denies: rash PFSH ED 2 PFSH: Medical History Nicotine dependence, cigarettes, uncomplicated Mild intermittent asthma Schizoaffective disorder, depressive type NSV (nonspecific vaginitis) Chronic post-traumatic stress disorder Generalized anxiety disorder Panic disorder without agoraphobia Psychiatric care Surgical History No pertinent past surgical history No pertinent past surgical history Family History Grandfather Diabetes paternal Family/Other Diabetes paternal uncle Mother Thyroid disease, Onset Age: 62 Thyroid cancer Grandmother Colon cancer maternal Other CAD (coronary artery disease) Cancer Denies family history of Ovarian cancer Clotting disorder Hyperlipidemia Breast cancer Bleeding disorder Hypertension Uterine cancer Stroke Social History Smoking and tobacco/nicotine status: current every day tobacco/nicotine user (vape ) cigarettes and e-cigarettes Physical Exam 2 Const: GENERAL APPEARANCE: cooperative ORIENTATION/CONSCIOUSNESS: Yes awake, Yes oriented to person, Yes oriented to place and Yes oriented to time HENMT: COMMON NORMALS: normocephalic, atraumatic and hearing grossly normal bilaterally HEAD & SCALP: normocephalic and atraumatic Resp: COMMON NORMALS: normal respiratory effort, No retractions, No use of accessory muscles and clear to auscultation bilaterally AUSCULTATION: clear to auscultation bilaterally Cardio: COMMON NORMALS: regular rate, regular rhythm and No murmurs present (Cardio) RATE: regular rate RHYTHM: regular rhythm GI: COMMON NORMALS: Soft to palpation and No hepatosplenomegaly present A USCULTATION: Yes normoactive bowel sounds PALPATION: Yes Soft to palpation, No Tenderness to palpation present (GI), No Guarding due to palpation present (GI) and Yes No hepatosplenomegaly present Extremity: COMMON NORMALS: normal to inspection, capillary refill normal, no clubbing, cyanosis or edema, no calf tenderness and no pedal edema Neuro: SENSORIUM/ORIENTATION: Yes oriented to person, Yes oriented to place and Yes oriented to time Skin: COMMON NORMALS: no rashes or lesions noted GENERAL SKIN EXAM: no rashes or lesions noted Course 2 Vital Signs: Vital signs: Vital Signs Temperature 98.1 F 08/15/24 11:11 Pulse Rate 86 08/15/24 12:40 Respiratory Rate 16 08/15/24 12:40 Blood Pressure 103/70 08/15/24 12:40 Pulse Oximetry 97 08/15/24 12:40 Oxygen Delivery Me thod Room Air 08/15/24 12:40 MDM - Abdominal Pain Medical Decision Making Reviewed the operating report and pathology report from recent pelvic surgery. Patient had a partial salpingectomy and there was a left ovarian tubal mass that was benign tissue. Reviewed findings of today's evaluation CT did not show any except from a stool patient added after initial evaluation she is having difficulty with bowel movements since her surgery. She continues magnesium citrate for immediate relief of symptoms half a bottle every 12 hours until adequate results are noted. She can use MiraLAX. Recommend 1 capful twice a day. If she has no improvement with regularity after 5 to 7 days she can increase to 1 capful twice a day decrease slightly if develops diarrhea. Follow-up with primary care. Medical Records I reviewed the patient's medical records. Lab Data I reviewed the patient's lab results. 08/15/24 12:17 08/15/24 12:17 Labs/Radiology: Radiology Impressions Abdomen/Pelvis CT 08/15/24 12:28 IMPRESSION: No acute abdominopelvic abnormality. Laboratory Results WBC 6.49 10^3/uL (3.29-11.43) 08/15/24 12:17 RBC 4.48 10^6/uL (3.85-5.65) 08/15/24 12:17 Hgb 13.50 g/dL (11.27-16.99) 08/15/24 12:17 Hct 39.5 % (36-47) 08/15/24 12:17 MCV 88.2 fl (85-98) 08/15/24 12:17 MCH 30.1 pg (27-33) 08/15/24 12:17 MCHC 34.2 g/dL (30-55) 08/15/24 12:17 RDW 12.1 % (12.1-15.1) 08/15/24 12:17 Plt Count 267 10^3/cmm (157-399) 08/15/24 12:17 MPV 9.2 fL (7.4-10.4) 08/15/24 12:17 Neut % (Auto) 67.5 % 08/15/24 12:17 Lymph % (Auto) 22.8 % 08/15/24 12:17 [place] % (Auto) 7.4 % 08/15/24 12:17 Eos % (Auto) 1.2 % 08/15/24 12:17 Baso % (Auto) 0.8 % 08/15/24 12:17 Neut # (Auto) 4.38 10^3/uL (1.8-7.7) 08/15/24 12:17 Lymph # (Auto) 1.5 10^3/uL (0.8-4.8) 08/15/24 12:17 [place] # (Auto) 0.5 10^3/uL (0.2-0.9) 08/15/24 12:17 Eos # (Auto) 0.1 10^3/uL (0.0-0.8) 08/15/24 12:17 Baso # (Auto) 0.1 10^3/uL (0.0-0.1) 08/15/24 12:17 Nucleated RBC % (auto) 0 % 08/15/24 12:17 Nucleated RBCs # 0.0 /100WBC 08/15/24 12:17 Sodium 136 mmol/L (136-145) 08/15/24 12:17 Potassium 3.9 mmol/L (3.5-5.1) 08/15/24 12:17 Chloride 103 mmol/L (98-107) 08/15/24 12:17 Carbon Dioxide 21 mmol/L (22-29) L 08/15/24 12:17 Anion Gap 15.9 (5-19) 08/15/24 12:17 BUN 14 mg/dL (6-20) 08/15/24 12:17 Creatinine 0.6 mg/dL (0.5-0.9) 08/15/24 12:17 GFR Calculation 119.0 mL/min (90-130) 08/15/24 12:17 Glucose 94 mg/dL (65-115) 08/15/24 12:17 Calculated Osmolality 282 mOsm/kg (285-295) L 08/15/24 12:17 Calcium 9.0 mg/dL (8.5-10.5) 08/15/24 12:17 Total Bilirubin 0.6 mg/dL (0.15-1.2) 08/15/24 12:17 AST 14 U/L (0-32) 08/15/24 12:17 ALT 11 U/L (0-33) 08/15/24 12:17 Alkaline Phosphatase 60 U/L (35-105) 08/15/24 12:17 Total Protein 6.9 g/dL (6.6-8.7) 08/15/24 12:17 Albumin 4.3 g/dL (3.5-5.2) 08/15/24 12:17 Globulin 2.6 g/dL (1.3-4.6) 08/15/24 12:17 HCG, Qual Negative (Negative) 08/15/24 12:17 Urine Color Yellow (Yellow) 08/15/24 13:11 Urine Appearance Clear (CLEAR) 08/15/24 13:11 Urine pH 5.5 (5-7) 08/15/24 13:11 Ur Specific [place] 1.025 (1.005-1.030) 08/15/24 13:11 Urine Protein Trace (Negative) A 08/15/24 13:11 Urine Glucose (UA) Negative (Normal) 08/15/24 13:11 Urine Ketones 1+ (Negative) H 08/15/24 13:11 Urine Blood 3+ (Negative) A 08/15/24 13:11 Urine Nitrate Negative (Negative) 08/15/24 13:11 Urine Bilirubin Negative (Negative) 08/15/24 13:11 Urine Urobilinogen 1.0 mg/dL (Negative) 08/15/24 13:11 Ur Leukocyte Esterase Trace (Negative) A 08/15/24 13:11 Urine RBC 21-50 /hpf (0-2) H 08/15/24 13:11 Urine WBC 0-5 /hpf (0-5) 08/15/24 13:11 Ur Squamous Epith Cells 0-5 /hpf (0-5) 08/15/24 13:11 Amorphous Sediment Not Reportable 08/15/24 13:11 Urine Bacteria Trace /hpf (NONE) 08/15/24 13:11 Hyaline Casts 1.65 /lpf 08/15/24 13:11 All radiology interpretation(s) finalized by discharge Discharge Plan Discharge Patient Disposition: Home Clinical Impression: Pelvic pain, Constipation Condition: Stable Prescriptions: New magnesium citrate Solution 150 ml PO BID PRN (Reason: constipation) Qty: 296 0RF Rx Instructions: Until adequate results achieved polyethylene glycol 3350 [Miralax] 17 gram/dose powder 17 g PO DAILY Qty: 850 0RF Rx Instructions: Once to twice daily for prevention of constipation Discharge Orders: Discharge ED (Routine); Ordered 08/15/24 Ordered By: Christiano Lane Referrals: Charles Molina MD [Primary Care Provider] - Discharge Diet: Usual diet Discharge Activity: Increase activity as tolerated Patient Instructions: Opioid Safety, Pain Management Activity Restrictions/Additional Instructions: Thank you for choosing [facility] for your healthcare needs today. It is very important that you follow up as instructed or that you return to the Emergency Department should you have concerns or if your condition changes or worsens in any way. You were seen in the emergency room with complaints of abdominal discomfort. CT did not show any abnormalities here test was negative. Urine did not show definitive signs of infection. CT did not show any acute intra-abdominal pathology. You had mentioned you are having difficulty with bowel movements since your surgery. There is not an excessive amount of stool in the colon. You can try mag citrate half a bottle every 12 hours until adequate results achieved. It also mentioned you had previously been using MiraLAX and recommend using 1 capful daily if this does not improve regularity of bowel movements you can increase to 1 capful twice a day. The medicine is not absorbed. If the stools become too loose decrease the amount of MiraLAX use daily. It will take 5 to 7 days of the same dose to be able to establish how it will affect your bowel movements on a regular basis. Coding Level of Care Code ED Full Fashioned Garment Knitter for Karie Corbin
[2024-08-15 12:28] LABS: Basophils # 0.1 10^3/uL (0.0-0.1); Basophils % 0.8 %; Eosinophils # 0.1 10^3/uL (0.0-0.8); Eosinophils % 1.2 %; Hematocrit 39.5 % (36-47); Lymphocytes # 1.5 10^3/uL (0.8-4.8); Lymphocytes % 22.8 %; Mean Corpuscular HGB Conc 34.2 g/dL (30-55); Mean Corpuscular Hemoglobin 30.1 pg (27-33); Mean Corpuscular Volume 88.2 fl (85-98); Mean Platelet Volume 9.2 fL (7.4-10.4); Monocytes # 0.5 10^3/uL (0.2-0.9); Monocytes % 7.4 %; Neutrophils # 4.38 10^3/uL (1.8-7.7); Neutrophils % 67.5 %; Nucleated Red Blood Cells % 0 %; Platelet Count 267 10^3/cmm (157-399); Red Blood Count 4.48 10^6/uL (3.85-5.65); Red Cell Distribution Width 12.1 % (12.1-15.1); White Blood Count 6.49 10^3/uL (3.29-11.43)
--- NOTE | 2024-08-15 12:28 | CTR_ITS ---
PROCEDURE INFORMATION: Exam: CT Abdomen And Pelvis With Contrast Exam date and time: 08/15/2024 1:30 PM Age: 28 years old Clinical indication: Abdominal pain; Additional info: Abd pain TECHNIQUE: Imaging protocol: Computed tomography of the abdomen and pelvis with contrast. Radiation optimization: All CT scans at this facility use at least one of these dose optimization techniques: automated exposure control; mA and/or kV adjustment per patient size (includes targeted exams where dose is matched to clinical indication); or iterative reconstruction. Contrast material: OMNI 350; Contrast volume: 100 ml; Contrast route: INTRAVENOUS (IV); COMPARISON: CT abdomen pelvis w con* [id number] 02/07/2021 11:50 AM RADIATION DOSE METRICS: Total DLP (mGy-cm): 551.04 FINDINGS: Liver: Subcentimeter hypodensities of the right hepatic lobe likely benign etiology. Gallbladder and biliary ducts: Normal. No calcified stones. No ductal dilation. Pancreas: Normal. No ductal dilation. Spleen: Normal. No splenomegaly. Adrenal glands: Normal. No mass. Kidneys and ureters: Normal. No hydronephrosis. Stomach and bowel: Unremarkable. No obstruction. No mucosal thickening. Appendix: Normal appendix. Intraperitoneal space: Unremarkable. No free air. No significant fluid collection. Vasculature: Unremarkable. No abdominal aortic aneurysm. Lymph nodes: Unremarkable. No enlarged lymph nodes. Urinary bladder: Unremarkable as visualized. Reproductive: Unremarkable as visualized. Bones/joints: Mild degenerative change at L5-S1. No acute fracture. Soft tissues: Unremarkable. CT/CT abdomen pelvis w con* [id number] IMPRESSION: No acute abdominopelvic abnormality.
[2024-08-15 12:38] LABS: HCG, Serum Qual Negative (Negative)
[2024-08-15 12:40] VITALS: BP 103/70; PULSE 86; RESP 16; O2SAT 97
[2024-08-15] MEDS: ketorolac 30 mg/mL INJ IVP (12:43)
[2024-08-15 12:51] LABS: Alanine Aminotransferase 11 U/L (0-33); Albumin Level 4.3 g/dL (3.5-5.2); Alkaline Phosphatase 60 U/L (35-105); Anion Gap 15.9 (5-19); Aspartate Amino Transferase 14 U/L (0-32); Blood Urea Nitrogen 14 mg/dL (6-20); Carbon Dioxide 21 mmol/L (22-29); Chloride 103 mmol/L (98-107); Creatinine Clr Calc Pharmacy 126.1338; Globulin 2.6 g/dL (1.3-4.6); Glucose 94 mg/dL (65-115); Osmolality Calculated 282 mOsm/kg (285-295); Potassium 3.9 mmol/L (3.5-5.1); Sodium 136 mmol/L (136-145); Total Bilirubin 0.6 mg/dL (0.15-1.2); Total Protein 6.9 g/dL (6.6-8.7)
[2024-08-15 13:17] LABS: Bilirubin Urine Negative (Negative); Blood Urine 3+ (Negative); Glucose Urine UA Negative (Normal); Ketones Urine 1+ (Negative); Leukocyte Esterase Urine Trace (Negative); Nitrate Urine Negative (Negative); Protein Urine Trace (Negative); Specific Gravity, Urine 1.025 (1.005-1.030); Urine Appearance Clear (CLEAR); Urine Color Yellow (Yellow); pH Urine 5.5 (5-7)
[2024-08-15 13:22] LABS: Add Urine Microscopic? YES; Bacteria Urine Trace /hpf; Hyaline Casts Urine 1.65 /lpf; RBC Urine 21-50 /hpf (0-2); Squamous Epithelial Cell Urine 0-5 /hpf (0-5); WBC Urine 0-5 /hpf (0-5)
[2024-08-15 13:23] LABS: Add Urine Culture? Yes
[2024-08-15] MEDS: iohexol 350 mg/mL 500 mL Btl (per mL) IV (13:31)
[2024-08-15 14:40] VITALS: BP 106/60; PULSE 80; RESP 16; O2SAT 95
== END 2024-08-15 14:39 | disposition home or self-care (01) ==
PROVIDERS: Emergency Provider Family Medicine; PCP Family Medicine
DX: K59.00 Constipation, unspecified (principal); F17.210 Nicotine dependence, cigarettes, uncomplicated
CPT/HCPCS: 36415; 74177; 80053; 81001; 84703; 85025; 87086; 96374; 99285; J1885

== ENCOUNTER 2024-08-17 19:07 | Emergency (ER) | payer BC, MEDICAID, SELFPAY ==
[2024-08-17 19:25] VITALS: BP 107/74; PULSE 85; RESP 14; TEMP 36.3; O2SAT 99; BMI 32.5
--- NOTE | 2024-08-17 20:40 | W.ED.WOUNDLC ---
HPI - Wound/Laceration General: Chief Complaint: Wound/Laceration Stated Complaint: left hand injury, bleeding Time Seen by Provider: 08/17/24 19:33 Source: patient Mode of arrival: ambulatory Limitations: no limitations History of Present Illness: Patient is a nice 28-year-old female presents to ED today for evaluation of a laceration to her left hand that she sustained just prior to arrival after she was washing a wine glass in the sink and it accidentally broke. Last tetanus was approximately 8 years ago. Onset (ago): hour(s) Extremity Location: Left: hand Place: home Patient tetanus UTD: No Context: accidental Associated symptoms: Reports no associated symptoms Treatments prior to arrival: bandage Related Data Previous Rx's Medication Instructions Recorded magnesium citrate 150 ml PO BID PRN constipation 08/15/24 #296 mL polyethylene glycol 3350 17 17 g PO DAILY #850 grams 08/15/24 gram/dose oral powder (Miralax) Allergies Allergy/AdvReac Type Severity Reaction Status Date / Time loratadine [From Claritin] Allergy Severe ADR-Nose Verified 08/17/24 19:29 Bleed mushroom Allergy ALGY-Anaphy Verified 08/17/24 19:29 laxis Review of Systems Musc: Reports: extremity pain (L hand laceration) Skin/Breast: Reports: other (laceration L hand) Neuro: Denies: numbness in extremities, weakness in extremities or sensory changes PFSH ED PFSH: Medical History Nicotine dependence, cigarettes, uncomplicated Mild intermittent asthma Schizoaffective disorder, depressive type NSV (nonspecific vaginitis) Chronic post-traumatic stress disorder Generalized anxiety disorder Panic disorder without agoraphobia Psychiatric care Surgical History No pertinent past surgical history No pertinent past surgical history Family History Grandfather Diabetes paternal Family/Other Diabetes paternal uncle Mother Thyroid disease, Onset Age: 62 Thyroid cancer Grandmother Colon cancer maternal Other CAD (coronary artery disease) Cancer Denies family history of Ovarian cancer Clotting disorder Hyperlipidemia Breast cancer Bleeding disorder Hypertension Uterine cancer Stroke Social History Smoking and tobacco/nicotine status: current every day tobacco/nicotine user (vape ) cigarettes and e-cigarettes Female Reproductive History: Date of last menstrual period: 08/15/24 Physical Exam Const: COMMON NORMALS: no acute distress, average body habitus, no limitations, healthy appearing, alert and well nourished Extremity: COMMON NORMALS: full ROM and capillary refill normal GENERAL: Yes normal exam except as noted LEFT UPPER EXTREMITY: Yes hand & digits (2cm laceration palmar L hand; no tendon/nerve involvement ) Left hand and digits: Yes ROM (normal ) and Yes neurovascular exam (normal) Neuro: COMMON NORMALS: moves all extremities, no focal motor deficits and no sensory deficits noted SENSORIUM/ORIENTATION: Yes alert Skin: TRAUMA: laceration Procedures Laceration Laceration 1: Site: hand Side (If applicable): left Size (cm): 2.0 Description: linear Depth: simple, single layer Local Anesthetic: lidocaine 1% and with epi Amount of anesthesia used (mL): 1.0 Pre-repair: wound explored and irrigated extensively Skin layer closed with: nylon Size (cm): 5-0 Number of sutures: 4 Technique: simple, interrupted Course Vital Signs: Vital signs: Vital Signs Temperature 97.4 F L 08/17/24 19:25 Pulse Rate 85 08/17/24 19:25 Respiratory Rate 14 08/17/24 19:25 Blood Pressure 107/74 08/17/24 19:25 Pulse Oximetry 99 08/17/24 19:25 Oxygen Delivery Me thod Room Air 08/17/24 19:25 MDM - Wound/Laceration Medical Decision Making Wound was copiously irrigated and repaired as documented. She was given a tetanus. XR showing no retained foreign body/glass. She was given precautions on infection. Suture care/removal discussed. Differential Diagnosis Likely laceration XR interpretation done by ED provider, pending radiology final review Discharge Plan Discharge Patient Disposition: Home Clinical Impression: Laceration of hand, left Qualifiers: Encounter type: initial encounter Foreign body presence: without foreign body Qualified Code(s): S61.412A - Laceration without foreign body of left hand, initial encounter Condition: Stable Prescriptions: No Action magnesium citrate Solution 150 ml PO BID PRN (Reason: constipation) Qty: 296 0RF Rx Instructions: Until adequate results achieved polyethylene glycol 3350 [Miralax] 17 gram/dose powder 17 g PO DAILY Qty: 850 0RF Rx Instructions: Once to twice daily for prevention of constipation Discharge Orders: Discharge ED (Routine); Ordered 08/17/24 Ordered By: Lainey Steiner Referrals: Charles Molina MD [Primary Care Provider] - Patient Instructions: Laceration (DC) Activity Restrictions/Additional Instructions: Keep wound/laceration clean with warm soap and water twice daily. Monitor for signs of infection such as redness, swelling, increased pain, or drainage. Please seek medical re-evaluation if these occur. If you received sutures today these will need to be removed (unless you were told by the provider that they are absorbable). The provider should have discussed with you the length of time until removal-7 DAYS. Coding Level of Care Code ED Customs Opener Verifier Packer for Karie Corbin
--- NOTE | 2024-08-17 20:43 | XRR_ITS ---
PROCEDURE INFORMATION: Exam: XR Left Hand Exam date and time: 08/17/2024 8:46 PM Age: 28 years old Clinical indication: Injury or trauma; Other: Laceration; Hand; Left; Additional info: Palmar laceration lt hand TECHNIQUE: Imaging protocol: Radiologic exam of the left hand. Views: 3 or more views. COMPARISON: No relevant prior studies available. FINDINGS: Bones/joints: Normal. Soft tissues: Palmar laceration. No radiopaque foreign body. XR/XR hand LT min 3V* [id number] IMPRESSION: Palmar laceration. No radiopaque foreign body.
[2024-08-17] MEDS: tetanus-dipt-pertussis 0.5 mL SDV IM (20:57)
[2024-08-17 21:45] VITALS: BP 119/84; PULSE 104; O2SAT 96
== END 2024-08-17 21:47 | disposition home or self-care (01) ==
PROVIDERS: Emergency Provider Physician Assistant; PCP Family Medicine
DX: S61.412A Laceration without foreign body of left hand, initial encounter (principal); F17.210 Nicotine dependence, cigarettes, uncomplicated; F17.290 Nicotine dependence, other tobacco product, uncomplicated; W25.XXXA Contact with sharp glass, initial encounter
CPT/HCPCS: 12001; 73130; 90471; 90715; 99283

== ENCOUNTER → 2024-08-19 14:29 | Outpatient (BNVA) | payer BC, MEDICAID, SELFPAY | PROVIDERS: PCP Family Medicine; Visit Provider Obstetrics & Gynecology | DX: N92.6 Irregular menstruation, unspecified (principal); Z01.419 Encounter for gynecological examination (general) (routine) without abnormal findings | CPT/HCPCS: 81025; 87624 ==

== ENCOUNTER 2024-09-11 20:38 | Emergency (ER) | payer BC, MEDICAID, SELFPAY ==
[2024-09-11 20:40] VITALS: BP 117/54; PULSE 98; RESP 18; TEMP 36.8; O2SAT 98; BMI 32.2
[2024-09-11 21:32] VITALS: BP 115/68; PULSE 88; RESP 16; O2SAT 99
--- NOTE | 2024-09-11 21:58 | ED_ITS ---
HPI - Ear Problem General: Chief complaint: Ear Stated complaint: R ear drum pain Time Seen by Provider: 09/11/24 21:24 Source: patient Mode of arrival: ambulatory Limitations: no limitations History of Present Illness: Patient is a 28-year-old female who presents the emergency department complaining of right ear pain for the past day. She states that she feels like her eardrum ruptured, stating pain began while she was seated doing nothing. No recent concerns for barotrauma or noise trauma. No drainage or bleeding from the ear. No changes in hearing. Vitals within normal limits. MD Complaint: ear pain Location: right ear Duration: constant Severity: severe Relieving factors: nothing Exacerbating factors: nothing Discharge from ear: no Associated symptoms: Reports ear or mastoid pain; Denies fever(s) Treatment prior to arrival: none Related Data Previous Rx's ?Medication ?Instructions ?Recorded magnesium citrate 150 ml PO BID PRN constipati on 08/15/24 #296 mL polyethylene glycol 3350 17 17 g PO DAILY #850 grams 0 08/15/24 gram/dose oral powder (Miralax) albuterol sulfate 90 mcg/actuation 2 inh inhalation Q4 H PRN shortness 09/03/24 aerosol inhaler of breath or wheezing #18 gr ams ciprofloxacin 0.3 %-dexamethasone 4 drp otic (ear) BID 7 days #7.5 mL 09/11/24 0.1 % ear drops,suspension Allergies Allergy/AdvReac Type Severity Reaction Status Date / Time loratadine (From Claritin) Allergy Severe ADR-Nose Verified 08/19/24 12:41 Bleed mushroom Allergy ALGY-Anaphy Verified 08/19/24 12:41 laxis Review of Systems General: Reports: 10 or more systems reviewed and unremarkable except in HPI and below Const: Denies: fever(s), chills or fatigue ENMT: Reports: ear or mastoid pain; Denies: throat pain, ear discharge, nasal discharge or nasal congestion Card: Denies: chest pain Resp: Denies: dyspnea GI: Denies: abdominal pain, nausea, vomiting or diarrhea Skin/Breast: Denies: rash PFSH ED 2 PFSH: Medical History Nicotine dependence, cigarettes, uncomplicated Mild intermittent asthma Schizoaffective disorder, depressive type NSV (nonspecific vaginitis) Chronic post-traumatic stress disorder Generalized anxiety disorder Panic disorder without agoraphobia Psychiatric care Surgical History No pertinent past surgical history No pertinent past surgical history Family History Grandfather Diabetes paternal Family/Other Diabetes paternal uncle Mother Thyroid disease, Onset Age: 62 Thyroid cancer Grandmother Colon cancer maternal Other CAD (coronary artery disease) Cancer Denies family history of Ovarian cancer Clotting disorder Hyperlipidemia Breast cancer Bleeding disorder Hypertension Uterine cancer Stroke Social History Smoking and tobacco/nicotine status: current every day tobacco/nicotine user (vape ) cigarettes and e-cigarettes Physical Exam Const: COMMON NORMALS: no acute distress and no limitations GENERAL APPEARANCE: cooperative, comfortable and well developed ORIENTATION/CONSCIOUSNESS: Yes awake HENMT: COMMON NORMALS: normocephalic, atraumatic, hearing grossly normal bilaterally and TM's normal bilaterally HEAD & SCALP: normocephalic and atraumatic EXTERNAL EAR: Yes mastoids normal EXTERNAL AUDITORY CANAL: Abnormal EAC present EAC laterality: right Details: erythema and edema TYMPANIC MEMBRANE: TM's normal bilaterally Eye: COMMON NORMALS: Equal, round and reactive pupils present, EOMs intact bilaterally and conjunctivae normal CONJUNCTIVA: Yes conjunctivae normal PUPIL: Yes Equal, round and reactive pupils present Neck/C-Spine: COMMON NORMALS: full ROM, supple and no JVD Resp: COMMON NORMALS: normal respiratory effort, No retractions, No use of accessory muscles and clear to auscultation bilaterally AUSCULTATION: clear to auscultation bilaterally Cardio: COMMON NORMALS: no JVD, regular rate, regular rhythm, No clicks present (Cardio), No murmurs present (Cardio) and No rub (Cardio) RATE: regular rate RHYTHM: regular rhythm Extremity: COMMON NORMALS: normal to inspection, full ROM and capillary refill normal Skin: COMMON NORMALS: no rashes or lesions noted GENERAL SKIN EXAM: no rashes or lesions noted Course Vital Signs: Vital signs: Vital Signs Temperature 98.2 F 09/11/24 20:40 Pulse Rate 88 09/11/24 21:32 Respiratory Rate 16 09/11/24 21:32 Blood Pressure 115/68 09/11/24 21:32 Pulse Oximetry 99 09/11/24 21:32 Oxygen Delivery Me thod Room Air 09/11/24 21:32 MDM - Ear Medical Decision Making Patient has clinical signs and symptoms of a right otitis externa, though there is lack of concerning historical elements with this did appear erythematous and edematous and reason for pain. Will treat with Ciprodex, no other concerns on exam or with the history. Follow-up with primary care routinely. No radiology studies performed this visit Discharge Plan Discharge Patient Disposition: Home Clinical Impression: Otitis externa Condition: Stable Prescriptions: New ciprofloxacin-dexamethasone 0.3-0.1 % drops,suspension 4 drp otic (ear) BID 7 Days Qty: 7.5 0RF No Action albuterol sulfate 90 mcg/actuation HFA aerosol inhaler 2 inh INHALATION Q4H PRN (Reason: shortness of breath or wheezing) Qty: 18 0RF magnesium citrate Solution 150 ml PO BID PRN (Reason: constipation) Qty: 296 0RF Rx Instructions: Until adequate results achieved polyethylene glycol 3350 [Miralax] 17 gram/dose powder 17 g PO DAILY Qty: 850 0RF Rx Instructions: Once to twice daily for prevention of constipation Discharge Orders: Discharge ED (Routine); Ordered 09/11/24 Ordered By: Kaveh Shafer Referrals: Charles Molina MD [Primary Care Provider] - Patient Instructions: Otitis Externa - Adult Activity Restrictions/Additional Instructions: Ciprodex as prescribed. Tylenol or ibuprofen for pain or fevers. Drink plenty fluids. Follow-up with primary care return with any new or worsening. Print Language: Japanese Coding Level of Care Code ED Online Content Coordinator for Karie Corbin
[2024-09-11] MEDS: ciprofloxacin-dexameth Otic Susp 7.5 mL Btl 4 DROP EAR-RIGHT (22:05)
== END 2024-09-11 22:06 | disposition home or self-care (01) ==
PROVIDERS: Emergency Provider Physician Assistant; PCP Family Medicine
DX: H60.91 Unspecified otitis externa, right ear (principal); F17.210 Nicotine dependence, cigarettes, uncomplicated; F17.290 Nicotine dependence, other tobacco product, uncomplicated
CPT/HCPCS: 99283

== ENCOUNTER → 2024-09-15 09:24 | Outpatient (BNVA) | payer BC, MEDICAID, SELFPAY | PROVIDERS: PCP Family Medicine; Visit Provider Obstetrics & Gynecology | DX: N92.6 Irregular menstruation, unspecified (principal) | CPT/HCPCS: 76830 ==

== ENCOUNTER → 2024-10-14 14:36 | Outpatient (BNVA) | payer BC, MEDICAID, SELFPAY | PROVIDERS: PCP Family Medicine; Visit Provider Obstetrics & Gynecology | DX: Z30.430 Encounter for insertion of intrauterine contraceptive device (principal) | CPT/HCPCS: 81025 ==

== ENCOUNTER 2024-11-25 14:54 | Emergency (ER) | payer BC, MEDICAID, SELFPAY ==
[2024-11-25] VITALS (26 sets, daily range): BP systolic 84–112; BP diastolic 46–74; PULSE 68–98; RESP 15–29; TEMP 36.7; O2SAT 91–100; BMI 30.2
--- NOTE | 2024-11-25 15:09 | ECG_ITS ---
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 Measurements Intervals [place] Rate: 74 P: -46 WV: 139 QRS: -40 QRSD: 89 T: 70 QT: 386 QTc: 430 Interpretive Statements ECTOPIC ATRIAL RHYTHM LEFT AXIS DEVIATION [QRS AXIS < -30] Compared to ECG 01/28/2017 09:29:53 Ectopic atrial rhythm now present Sinus rhythm no longer present Electronically Signed On 11-25-2024 17:40:37 CDT by Rajendra Rubi M.D. [email or web address]
[2024-11-25] MEDS: sodium chloride 0.9% 1,000 ML 999 ML IV (15:47)
[2024-11-25 15:58] LABS: Basophils % 0.6 %; Eosinophils # 0.2 10^3/uL (0.0-0.8); Eosinophils % 2.2 %; Lymphocytes # 1.7 10^3/uL (0.8-4.8); Mean Corpuscular HGB Conc 33.7 g/dL (30-55); Mean Corpuscular Hemoglobin 31.1 pg (27-33); Mean Corpuscular Volume 92.5 fl (85-98); Mean Platelet Volume 9.4 fL (7.4-10.4); Monocytes # 0.6 10^3/uL (0.2-0.9); Monocytes % 8.2 %; Neutrophils # 4.34 10^3/uL (1.8-7.7); Neutrophils % 63.7 %; Nucleated Red Blood Cells % 0 %; Platelet Count 217 10^3/cmm (157-399); Red Blood Count 4.11 10^6/uL (3.85-5.65); Red Cell Distribution Width 12.7 % (12.1-15.1); White Blood Count 6.81 10^3/uL (3.29-11.43)
[2024-11-25 16:06] LABS: Bilirubin Urine Negative (Negative); Blood Urine 1+ (Negative); Glucose Urine UA Negative (Normal); Ketones Urine Negative (Negative); Leukocyte Esterase Urine 1+ (Negative); Nitrate Urine Negative (Negative); Protein Urine Negative (Negative); Specific Gravity, Urine 1.021 (1.005-1.030); Urine Appearance Cloudy (CLEAR); Urine Color Yellow (Yellow)
--- NOTE | 2024-11-25 16:06 | W.ED.GENADLT ---
HPI - General Adult General: Chief complaint: Nausea/Vomiting/Diarrhea Stated complaint: dizzy spells/vomitting Time Seen by Provider: 11/25/24 15:29 Source: patient Mode of arrival: ambulatory Limitations: no limitations History of Present Illness: Patient is a 29-year-old biological female who identifies as male currently on testosterone therapy here stating over the past 3 days that he has felt fatigued and has had intermittent dizzy spells with an episode of syncope while at work earlier today. Blood pressure upon arrival was 88/57. Looking at previous blood pressures, he chronically runs on the lower side with blood pressures often times 90s/60s dating all the way back to 2020. Patient does tell me his blood pressure chronically runs on the lower end. He has had issues with his blood pressure randomly bottoming out . He states when he was he had issues with syncopal episodes and dizziness and even lower blood pressures and had to be placed on bedrest. During my initial examination of patient blood pressure increased to 112/71. He states he has not been ill recently. No headache, fevers, body aches. He states he occasionally will get chest pain/palpitations but these are chronic and anxiety induced. States he used to be under psychiatric care at [facility] but has not been there in several months. He used to take Abilify and Buspirone but has been off of these medications over the past 2 months. His only medication currently is a testosterone gel that he gets from an [employer]. Patient states he does not exertional symptoms and describes himself as fairly active. Onset (ago): day(s) Relieving factors: none Exacerbating factors: none Associated symptoms: Reports no associated symptoms and syncope; Deny chest pain, confusion, diaphoresis, dyspnea, headache(s), malaise, nausea, palpitations or vomiting Treatments prior to arrival: none Related Data Home Medications ?Medication ?Instructions ?Recorded ?Confirmed testosterone See Rx Instructions .Route .COMPLEX 11/19/24 11/25/24 polyethylene glycol 3350 17 17 g PO DAILY PRN Constipation 11/25/24 11/25/24 gram/dose oral powder (Miralax) Previous Rx's ?Medication ?Instructions ?Recorded albuterol sulfate 90 mcg/actuation 2 inh inhalation Q4H PRN shortness 09/03/24 aerosol inhaler of breath or wheezing #18 grams bupropion HCl 150 mg tablet,12 hr 150 mg PO DAILY #30 tabs 09/17/24 sustained-release (Wellbutrin SR) Allergies Allergy/AdvReac Type Severity Reaction Status Date / Time loratadine (From Claritin) Allergy Severe ADR-Nose Verified 11/25/24 15:06 Bleed mushroom Allergy ALGY-Anaphy Verified 11/25/24 15:06 laxis Review of Systems Const: Reports: fatigue; Denies: fever(s), chills, body aches, change in appetite, change in weight, malaise, night sweats or diaphoresis Eyes: Denies: change in vision, blurry vision, photophobia, floaters or seeing flashes Card: Reports: syncope; Denies: chest pain, palpitations, irregular heart rhythm, edema, swelling of feet/ankles, pre-syncope, dyspnea on exertion, orthopnea, leg pain with exertion or acrocyanosis Resp: Denies: dyspnea, productive cough or non-productive cough GI: Denies: abdominal pain, nausea, vomiting or diarrhea Musc: Denies: neck pain, back pain, extremity pain, extremity swelling, joint pain or joint swelling Neuro: Reports: dizziness; Denies: headache(s), numbness in extremities, weakness in extremities, sensory changes, lack of coordination, difficulty walking, frequent falls, vertigo, confusion, behavioral changes, Slurred speech present, difficulty communicating thoughts or seizure-like activity PFS ED PFSH: Medical History Nicotine dependence, cigarettes, uncomplicated Mild intermittent asthma Schizoaffective disorder, depressive type NSV (nonspecific vaginitis) Chronic post-traumatic stress disorder Generalized anxiety disorder Panic disorder without agoraphobia Psychiatric care Surgical History No pertinent past surgical history No pertinent past surgical history Family History Grandfather Diabetes paternal Family/Other Diabetes paternal uncle Mother Thyroid disease, Onset Age: 62 Thyroid cancer Grandmother Colon cancer maternal Other CAD (coronary artery disease) Cancer Denies family history of Ovarian cancer Clotting disorder Hyperlipidemia Breast cancer Bleeding disorder Hypertension Uterine cancer Stroke Social History (Reviewed 11/25/24 @ 16:12 by LAITH Corbin Smoking and tobacco/nicotine status: current every day tobacco/nicotine user (vape ) cigarettes and e-cigarettes Current gender identity: Trans [id number] Physical Exam Const: COMMON NORMALS: no acute distress, patient oriented x3, no limitations, alert and well nourished GENERAL APPEARANCE: cooperative ORIENTATION/CONSCIOUSNESS: Yes awake, Yes oriented to person, Yes oriented to place and Yes oriented to time HENMT: COMMON NORMALS: normocephalic and atraumatic HEAD & SCALP: normal to inspection, normocephalic and atraumatic Eye: GENERAL EYE: appearance normal, both eyes and all related structures Resp: COMMON NORMALS: normal respiratory effort and clear to auscultation bilaterally AUSCULTATION: clear to auscultation bilaterally Cardio: COMMON NORMALS: regular rate and regular rhythm RATE: regular rate RHYTHM: regular rhythm GI: COMMON NORMALS: Normal to inspection, nondistended, normoactive bowel sounds present, Soft to palpation, non-tender, No hepatosplenomegaly present and no masses PALPATION: Yes Soft to palpation and Yes No hepatosplenomegaly present Extremity: COMMON NORMALS: normal to inspection, no clubbing, cyanosis or edema, no calf tenderness and no pedal edema GENERAL: Yes normal exam except as noted Neuro: MILAGROS COMA SCALE: document GCS findings Milagros coma scale eye opening: Spontaneous [place] coma scale verbal response: Orientated Milagros coma scale motor response: Obey commands Milagros coma scale total score: 15 COMMON NORMALS: patient oriented x3, moves all extremities, no focal motor deficits, no sensory deficits noted and gait normal SENSORIUM/ORIENTATION: Yes alert, Yes oriented to person, Yes oriented to place and Yes oriented to time Skin: COMMON NORMALS: no rashes or lesions noted GENERAL SKIN EXAM: no rashes or lesions noted Course Vital Signs: Vital signs: Vital Signs Temperature 98.0 F 11/25/24 15:01 Pulse Rate 73 11/25/24 17:15 Respiratory Rate 29 H 11/25/24 17:15 Blood Pressure 103/49 11/25/24 17:15 Pulse Oximetry 100 11/25/24 17:15 [facility] - General Adult Medical Decision Making Patient has been fairly asymptomatic during his stay. His blood pressures have ranged anywhere from 89/47 up to 112/71 when I was in with him. Looking at previous documentation, these are not far off from his baseline. Blood work today overall is unremarkable. H&H is stable. Chemistry showing very mild hypokalemia at 3.4. He was given oral supplementation for this. UA is contaminated. He is not having any UTI-like symptoms. Tox screen positive for marijuana. D-dimer was unremarkable. EKG was unremarkable. I feel patient is stable from an emergency standpoint with recommendations to follow-up with his primary care provider. Medical Records I reviewed the patient's medical records. Lab Data I reviewed the patient's lab results. 11/25/24 15:25 11/25/24 15:25 Laboratory Results WBC 6.81 10^3/uL (3.29-11.43) 11/25/24 15: RBC 4.11 10^6/uL (3.85-5.65) 11/25/24 15: Hgb 12.80 g/dL (11.27-16.99) 11/25/24 15:25 Hct 38.0 % (36-47) 11/25/24 15:25 MCV 92.5 fl (85-98) 11/25/24 15:25 MCH 31.1 pg (27-33) 11/25/24 15:25 MCHC 33.7 g/dL (30-55) 11/25/24 15:25 RDW 12.7 % (12.1-15.1) 11/25/24 15: Plt Count 217 10^3/cmm (157-399) 11/25/24 15:25 MPV 9.4 fL (7.4-10.4) 11/25/24 15:25 Neut % (Auto) 63.7 % 11/25/24 15:25 Lymph % (Auto) 25.0 % 11/25/24 15:25 [place] % (Auto) 8.2 % 11/25/24 15:25 Eos % (Auto) 2.2 % 11/25/24 15:25 Baso % (Auto) 0.6 % 11/25/24 15:25 Neut # (Auto) 4.34 10^3/uL (1.8-7.7) 11/25/24 15:25 Lymph # (Auto) 1.7 10^3/uL (0.8-4.8) 11/25/24 15:25 [place] # (Auto) 0.6 10^3/uL (0.2-0.9) 11/25/24 15:25 Eos # (Auto) 0.2 10^3/uL (0.0-0.8) 11/25/24 15:25 Baso # (Auto) 0.0 10^3/uL (0.0-0.1) 11/25/24 15:25 Nucleated RBC % (auto) 0 % 11/25/24 15:25 Nucleated RBCs # 0.0 /100WBC 11/25/24 15:25 D-Dimer <= 0.27 ug/mLFEU (0-0.59) 11/25/24 15:25 Sodium 140 mmol/L (136-145) 11/25/24 15:25 Potassium 3.4 mmol/L (3.5-5.1) L 11/25/24 15:25 Chloride 107 mmol/L (98-107) 11/25/24 15:25 Carbon Dioxide 22 mmol/L (22-29) 11/25/24 15:25 Anion Gap 14.4 (5-19) 11/25/24 15:25 BUN 12 mg/dL (6-20) 11/25/24 15:25 Creatinine 0.6 mg/dL (0.5-0.9) 11/25/24 15:25 GFR Calculation 118.2 mL/min (90-130) 11/25/24 15:25 Glucose 76 mg/dL (65-115) 11/25/24 15:25 Calculated Osmolality 289 mOsm/kg (285-295) 11/25/24 15:25 Calcium 9.0 mg/dL (8.5-10.5) 11/25/24 15:25 Total Bilirubin 0.5 mg/dL (0.15-1.2) 11/25/24 15:25 AST 13 U/L (0-32) 11/25/24 15:25 ALT 10 U/L (0-33) 11/25/24 15:25 Alkaline Phosphatase 48 U/L (35-105) 11/25/24 15:25 Total Protein 6.3 g/dL (6.6-8.7) L 11/25/24 15:25 Albumin 4.1 g/dL (3.5-5.2) 11/25/24 15:25 Globulin 2.2 g/dL (1.3-4.6) 11/25/24 15:25 TSH 0.31 uIU/mL (0.27-4.20) 11/25/24 15:25 HCG, Qual Negative (Negative) 11/25/24 15:25 Urine Color Yellow (Yellow) 11/25/24 15:55 Urine Appearance Cloudy (CLEAR) A 11/25/24 15:55 Urine pH 6.0 (5-7) 11/25/24 15:55 Ur Specific [place] 1.021 (1.005-1.030) 11/25/24 15:55 Urine Protein Negative (Negative) 11/25/24 15:55 Urine Glucose (UA) Negative (Normal) 11/25/24 15:55 Urine Ketones Negative (Negative) 11/25/24 15:55 Urine Blood 1+ (Negative) A 11/25/24 15:55 Urine Nitrate Negative (Negative) 11/25/24 15:55 Urine Bilirubin Negative (Negative) 11/25/24 15:55 Urine Urobilinogen 1.0 mg/dL (Negative) 11/25/24 15:55 Ur Leukocyte Esterase 1+ (Negative) A 11/25/24 15:55 Urine RBC 0-2 /hpf (0-2) 11/25/24 15:55 Urine WBC 11-20 /hpf (0-5) H 11/25/24 15:55 Ur Squamous Epith Cells 11-20 /hpf (0-5) H 11/25/24 15:55 Urine Bacteria 3+ /hpf (NONE) H 11/25/24 15:55 Hyaline Casts 2.46 /lpf 11/25/24 15:55 Urine Opiates Screen Negative ng/mL (Negative) 11/25/24 15:55 Ur Barbiturates Screen Negative ng/mL (Negative) 11/25/24 15:55 Ur Phencyclidine Scrn Negative ng/mL (Negative) 11/25/24 15:55 Ur Amphetamines Screen Negative ng/mL (Negative) 11/25/24 15:55 U Benzodiazepines Scrn Negative ng/mL (Negative) 11/25/24 15:55 Urine Cocaine Screen Negative ng/mL (Negative) 11/25/24 15:55 U Marijuana (THC) Screen Positive ng/mL (Negative) H 11/25/24 15:55 No radiology studies performed this visit Discharge Plan Discharge Patient Disposition: Home Clinical Impression: Chronic hypotension Syncope Qualifiers: Syncope type: unspecified Qualified Code(s): R55 - Syncope and collapse Condition: Stable Prescriptions: No Action bupropion HCl [Wellbutrin SR] 150 mg tablet sustained-release 12 hr 150 mg PO DAILY Qty: 30 6RF testosterone 20.25 mg/1.25 gram (1.62 %) gel in metered-dose pump See Rx Instructions .ROUTE .COMPLEX Rx Instructions: Apply 2 pumps topically every morning to shoulder, upper arm. albuterol sulfate 90 mcg/actuation HFA aerosol inhaler 2 inh INHALATION Q4H PRN (Reason: shortness of breath or wheezing) Qty: 18 0RF polyethylene glycol 3350 [Miralax] 17 gram/dose powder 17 g PO DAILY PRN (Reason: Constipation) Rx Instructions: Once to twice daily for prevention of constipation Discharge Orders: Discharge ED (Routine); Ordered 11/25/24 Ordered By: Lainey Steiner Referrals: Charles Molina MD [Primary Care Provider, Family Practice] Activity Restrictions/Additional Instructions: As we discussed, please follow-up with your primary care provider for further evaluation of symptoms. Print Language: Citizen [place] Coding Level of Care Code ED [address] for Karie Corbin
[2024-11-25 16:10] LABS: Add Urine Microscopic? YES; Bacteria Urine 3+ /hpf; Hyaline Casts Urine 2.46 /lpf; RBC Urine 0-2 /hpf (0-2)
[2024-11-25 16:14] LABS: Add Urine Culture? Yes; Amphetamines Screen Urine Negative (Negative); Barbiturates Screen Urine Negative (Negative); Benzodiazepines Screen Urine Negative (Negative); Cocaine Screen Urine Negative (Negative); Opiate Screen Urine Negative (Negative); PCP Screen Urine Negative (Negative); THC Screen Urine Positive (Negative)
[2024-11-25 16:20] LABS: Alanine Aminotransferase 10 U/L (0-33); Albumin Level 4.1 g/dL (3.5-5.2); Alkaline Phosphatase 48 U/L (35-105); Anion Gap 14.4 (5-19); Aspartate Amino Transferase 13 U/L (0-32); Blood Urea Nitrogen 12 mg/dL (6-20); Carbon Dioxide 22 mmol/L (22-29); Chloride 107 mmol/L (98-107); Creatinine Clr Calc Pharmacy 121.0449; D Dimer <= 0.27 ug/mLFEU (0-0.59); Globulin 2.2 g/dL (1.3-4.6); Glomerular Filtration Rate 118.2 mL/min (90-130); Glucose 76 mg/dL (65-115); Osmolality Calculated 289 mOsm/kg (285-295); Potassium 3.4 mmol/L (3.5-5.1); Sodium 140 mmol/L (136-145); Total Bilirubin 0.5 mg/dL (0.15-1.2); Total Protein 6.3 g/dL (6.6-8.7)
[2024-11-25 16:32] LABS: Thyroid Stimulating Hormone 0.31 uIU/mL (0.27-4.20)
[2024-11-25 16:39] LABS: HCG, Serum Qual Negative (Negative)
[2024-11-25] MEDS: potassium chloride ER 20 mEq Tablet 40 MEQ PO (17:19)
== END 2024-11-25 17:38 | disposition home or self-care (01) ==
PROVIDERS: Emergency Provider Physician Assistant; PCP Family Medicine
DX: I95.89 Other hypotension (principal); R55 Syncope and collapse; F17.290 Nicotine dependence, other tobacco product, uncomplicated
CPT/HCPCS: 36415; 80053; 80306; 81001; 84443; 84703; 85025; 85378; 87086; 93005; 96360; 96361; 99284; J7030; J9999

== ENCOUNTER 2024-12-27 11:33 | Emergency (ER) | payer BC, MEDICAID, SELFPAY ==
[2024-12-27 11:47] VITALS: BP 103/59; PULSE 68; RESP 12; TEMP 36.7; O2SAT 99; BMI 30.2
[2024-12-27 12:14] LABS: Basophils % 0.7 %; Eosinophils # 0.2 10^3/uL (0.0-0.8); Eosinophils % 3.4 %; Lymphocytes # 1.8 10^3/uL (0.8-4.8); Lymphocytes % 31.6 %; Mean Corpuscular HGB Conc 34.2 g/dL (30-55); Mean Corpuscular Hemoglobin 31.1 pg (27-33); Mean Corpuscular Volume 90.9 fl (85-98); Mean Platelet Volume 8.9 fL (7.4-10.4); Monocytes # 0.5 10^3/uL (0.2-0.9); Monocytes % 9.1 %; Neutrophils # 3.19 10^3/uL (1.8-7.7); Neutrophils % 54.9 %; Nucleated Red Blood Cells % 0 %; Platelet Count 221 10^3/cmm (157-399); Red Blood Count 4.18 10^6/uL (3.85-5.65); White Blood Count 5.82 10^3/uL (3.29-11.43)
[2024-12-27 12:37] LABS: HCG Quantitative < 1.00 mIU/mL
[2024-12-27 12:48] LABS: Alanine Aminotransferase 14 U/L (0-33); Albumin Level 4.3 g/dL (3.5-5.2); Alkaline Phosphatase 53 U/L (35-105); Anion Gap 14.8 (5-19); Aspartate Amino Transferase 17 U/L (0-32); Blood Urea Nitrogen 10 mg/dL (6-20); Calcium 8.9 mg/dL (8.5-10.5); Carbon Dioxide 21 mmol/L (22-29); Chloride 102 mmol/L (98-107); Creatinine Clr Calc Pharmacy 103.7528; Globulin 2.6 g/dL (1.3-4.6); Glomerular Filtration Rate 98.9 mL/min (90-130); Glucose 82 mg/dL (65-115); Osmolality Calculated 276 mOsm/kg (285-295); Potassium 3.8 mmol/L (3.5-5.1); Sodium 134 mmol/L (136-145); Total Bilirubin 0.6 mg/dL (0.15-1.2); Total Protein 6.9 g/dL (6.6-8.7)
[2024-12-27 13:30] VITALS: BP 116/79; PULSE 67; O2SAT 97
[2024-12-27 13:35] LABS: Bilirubin Urine Negative (Negative); Blood Urine Negative (Negative); Glucose Urine UA Negative (Normal); Ketones Urine Negative (Negative); Leukocyte Esterase Urine Negative (Negative); Nitrate Urine Negative (Negative); Protein Urine Negative (Negative); Specific Gravity, Urine 1.015 (1.005-1.030); Urine Appearance Clear (CLEAR); Urine Color Yellow (Yellow); Urobilinogen Urine 0.2 mg/dL (Negative)
[2024-12-27 13:40] LABS: Add Urine Microscopic? YES; Bacteria Urine None Seen /hpf; Hyaline Casts Urine 0-4 /lpf; RBC Urine 0-2 /hpf (0-2); Squamous Epithelial Cell Urine 0-5 /hpf (0-5); WBC Urine 0-5 /hpf (0-5)
--- NOTE | 2024-12-27 13:59 | ED_ITS ---
HPI - Female Genitourinary 2 General: Chief complaint: Abdominal Pain Stated complaint: cramping,spotting,vomiting Time Seen by Provider: 12/27/24 13:02 Source: patient Mode of arrival: ambulatory Limitations: no limitations History of Present Illness: Patient is a 29-year-old female that identifies as a male that presents to the emergency department with diffuse abdominal pain and cramping with the pain radiating to the rectum for the past several weeks.. Patient does have an IUD but is concerned for possible because in the past he has had similar symptoms with . He reports nausea and vomiting although that has gotten better over the last few days. He has been able to keep fluids down. The patient reports a new sexual partner and requests STI testing of the urine be done. He denies any fever or chills. He reports a history of ovarian cyst in the past that did require laparoscopic surgery but denies any other surgeries. He states he has had some rectal pain and some blood-streaked stool but denies any history of anal intercourse. He states he will have some fairly sharp abdominal pain intermittently that lasts for 1 to 2 seconds and then resolves. Patient states he has an appointment with his BACK PADDER later this month but the symptoms have gotten worse and he wanted them evaluated here. He denies any pain or burning with urination, blood in the urine or any flank pain. He presents to the emergency department for further evaluation and treatment. Associated symptoms: Reports abdominal pain (Diffuse abdominal pain and cramping) and nausea (None for the last 2 days.); Deny headache(s) Related Data Home Medications ?Medication ?Instructions ?Recorded ?Confirmed testosterone See Rx Instructions .Route . COMPLEX 11/19/24 12/27/24 polyethylene glycol 3350 17 17 g PO DAILY PRN Constipa tion 11/25/24 12/27/24 gram/dose oral powder (Miralax) Previous Rx's ?Medication ?Instructions ?Recorded albuterol sulfate 90 mcg/actuation 2 inh inhalation Q4 H PRN shortness 09/03/24 aerosol inhaler of breath or wheezing #18 gr ams dicyclomine 20 mg tablet 20 mg PO QID PRN abdominal p ain 12/27/24 #20 tabs Allergies Allergy/AdvReac Type Severity Reaction Status Date / Time loratadine (From Claritin) Allergy Severe ADR-Nose Verified 11/25/24 15:06 Bleed mushroom Allergy ALGY-Anaphy Verified 11/25/24 15:06 laxis Review of Systems 2 General: Reports: 10 or more systems reviewed and unremarkable except in HPI and below Const: Denies: fever(s) or chills Eyes: Denies: change in vision ENMT: Denies: throat pain, odynophagia or hoarseness Card: Denies: chest pain or palpitations Resp: Denies: dyspnea, productive cough, non-productive cough or wheezing GI: Reports: abdominal pain (Diffuse abdominal pain and cramping), nausea (None for the last 2 days.), vomiting (None for the last two days), rectal pain and hematochezia (Blood-streaked stool); Denies: fecal incontinence : Denies: flank pain, difficulty voiding, dysuria or urinary frequency Musc: Denies: neck pain, back pain or extremity pain Skin/Breast: Denies: rash, pruritus or erythema Neuro: Denies: headache(s), numbness in extremities or weakness in extremities Psych: Denies: anxiety Endo: Denies: polyuria or polydipsia Tirso/Lymph: Denies: petechiae All/Imm: Denies: tongue swelling PFSH ED 2 PFSH: Medical History Nicotine dependence, cigarettes, uncomplicated Mild intermittent asthma Schizoaffective disorder, depressive type NSV (nonspecific vaginitis) Chronic post-traumatic stress disorder Generalized anxiety disorder Panic disorder without agoraphobia Psychiatric care Surgical History No pertinent past surgical history No pertinent past surgical history Family History Grandfather Diabetes paternal Family/Other Diabetes paternal uncle Mother Thyroid disease, Onset Age: 62 Thyroid cancer Grandmother Colon cancer maternal Other CAD (coronary artery disease) Cancer Denies family history of Ovarian cancer Clotting disorder Hyperlipidemia Breast cancer Bleeding disorder Hypertension Uterine cancer Stroke Social History Smoking and tobacco/nicotine status: current every day tobacco/nicotine user (vape ) cigarettes and e-cigarettes Current gender identity: Trans [id number] Physical Exam 2 Const: COMMON NORMALS: no acute distress GENERAL APPEARANCE: cooperative ORIENTATION/CONSCIOUSNESS: Yes awake HENMT: COMMON NORMALS: normocephalic, atraumatic, external ears normal, EAC's normal, TM's normal bilaterally and Normal external nose present HEAD & SCALP: normocephalic and atraumatic NOSE: Normal external nose present E XTERNAL EAR: Yes external ears normal EXTERNAL AUDITORY CANAL: EAC's normal TYMPANIC MEMBRANE: TM's normal bilaterally MOUTH: Normal oral and palatal mucosa present (Mucous membranes moist); no trismus THROAT: posterior oropharynx normal Eye: COMMON NORMALS: conjunctivae normal CONJUNCTIVA: Yes conjunctivae normal Neck/C-Spine: COMMON NORMALS: full ROM, supple and no meningeal signs C ERVICAL SPINE: Yes cervical ROM normal Lymph: LYMPHATIC: no lymphadenopathy noted Resp: COMMON NORMALS: normal respiratory effort and clear to auscultation bilaterally EFFORT & INSPECTION: Yes able to speak in complete sentences A USCULTATION: clear to auscultation bilaterally, no crackles, no rales, no rhonchi and no wheezes GI: COMMON NORMALS: Soft to palpation AUSCULTATION: Yes normoactive bowel sounds PALPATION: Yes Soft to palpation, Yes Tenderness to palpation present (GI) (Mild diffuse abdominal tenderness with no guarding or rebound tenderness), No Guarding due to palpation present (GI), No Rigid due to palpation and No Rebound tenderness present RECTAL EXAM: deferred (Patient declined rectal exam) : COMMON NORMALS: Yes no CVA tenderness BLADDER/KIDNEY EXAM: Yes no CVA tenderness MANUAL OB EXAM: Deferred manual OB exam (Patient declined, states he has appointment with BACK PADDER in 2 weeks) Back/Pelvis: COMMON NORMALS: no CVA tenderness Extremity: COMMON NORMALS: normal to inspection, full ROM, no calf tenderness and no pedal edema Neuro: MENINGEAL SIGNS: Yes no meningeal signs SPEECH: speech normal Skin: COMMON NORMALS: no rashes or lesions noted GENERAL SKIN EXAM: no rashes or lesions noted Course 2 ED course: I discussed case with Dr. Jaquez who agrees with the assessment and plan. The patient is declining any type of pelvic or rectal exam at this time. He does have an appointment with the BACK PADDER later this month for recheck. He recommended some Bentyl to help with the abdominal cramping. Vital Signs: Vital signs: Vital Signs Temperature 98.0 F 12/27/24 11:47 Pulse Rate 67 12/27/24 13:30 Respiratory Rate 12 12/27/24 11:47 Blood Pressure 116/79 12/27/24 13:30 Pulse Oximetry 97 12/27/24 13:30 Oxygen Delivery Me thod Room Air 12/27/24 13:30 MDM - Female Medical Decision Making Patient was advised of the exam and lab findings. There is no sign of urinary tract infection. test was negative. He is requesting STD testing from the urine and he declined a pelvic exam. He states he has a follow-up with his BACK PADDER later this month for recheck. I advised that he follow-up with his BACK PADDER and primary care provider as directed. I recommended he increase fluids. He states he does have nausea medication at home that he can use. I did recommend that he use [id number] stool softener such as Colace or MiraLAX to see if that will help with rectal pain and bleeding and follow-up as instructed. Patient does not have any significant point tenderness, guarding or rebound tenderness at this time. There is no elevation in white blood cell count and he has a normal red blood cell count. Patient was advised to return to the emergency department with any worsening symptoms. The patient expressed understanding. Differential Diagnosis Likely abdominal pain, constipation and gastroenteritis Medical Records I reviewed the patient's medical records. Lab Data I reviewed the patient's lab results. 12/27/24 12:09 12/27/24 12:09 Laboratory Results WBC 5.82 10^3/uL (3.29-11.43) 12/27/24 12:09 RBC 4.18 10^6/uL (3.85-5.65) 12/27/24 12:09 Hgb 13.00 g/dL (11.27-16.99) 12/27/24 12:09 Hct 38.0 % (36-47) 12/27/24 12:09 MCV 90.9 fl (85-98) 12/27/24 12:09 MCH 31.1 pg (27-33) 12/27/24 12:09 MCHC 34.2 g/dL (30-55) 12/27/24 12:09 RDW 12.0 % (12.1-15.1) L 12/27/24 12:09 Plt Count 221 10^3/cmm (157-399) 12/27/24 12:09 MPV 8.9 fL (7.4-10.4) 12/27/24 12:09 Neut % (Auto) 54.9 % 12/27/24 12:09 Lymph % (Auto) 31.6 % 12/27/24 12:09 [place] % (Auto) 9.1 % 12/27/24 12:09 Eos % (Auto) 3.4 % 12/27/24 12:09 Baso % (Auto) 0.7 % 12/27/24 12:09 Neut # (Auto) 3.19 10^3/uL (1.8-7.7) 12/27/24 12:09 Lymph # (Auto) 1.8 10^3/uL (0.8-4.8) 12/27/24 12:09 [place] # (Auto) 0.5 10^3/uL (0.2-0.9) 12/27/24 12:09 Eos # (Auto) 0.2 10^3/uL (0.0-0.8) 12/27/24 12:09 Baso # (Auto) 0.0 10^3/uL (0.0-0.1) 12/27/24 12:09 Nucleated RBC % (auto) 0 % 12/27/24 12:09 Nucleated RBCs # 0.0 /100WBC 12/27/24 12:09 Sodium 134 mmol/L (136-145) L 12/27/24 12:09 Potassium 3.8 mmol/L (3.5-5.1) 12/27/24 12:09 Chloride 102 mmol/L (98-107) 12/27/24 12:09 Carbon Dioxide 21 mmol/L (22-29) L 12/27/24 12:09 Anion Gap 14.8 (5-19) 12/27/24 12:09 BUN 10 mg/dL (6-20) 12/27/24 12:09 Creatinine 0.7 mg/dL (0.5-0.9) 12/27/24 12:09 GFR Calculation 98.9 mL/min (90-130) 12/27/24 12:09 Glucose 82 mg/dL (65-115) 12/27/24 12:09 Calculated Osmolality 276 mOsm/kg (285-295) L 12/27/24 12:09 Calcium 8.9 mg/dL (8.5-10.5) 12/27/24 12:09 Total Bilirubin 0.6 mg/dL (0.15-1.2) 12/27/24 12:09 AST 17 U/L (0-32) 12/27/24 12:09 ALT 14 U/L (0-33) 12/27/24 12:09 Alkaline Phosphatase 53 U/L (35-105) 12/27/24 12:09 Total Protein 6.9 g/dL (6.6-8.7) 12/27/24 12:09 Albumin 4.3 g/dL (3.5-5.2) 12/27/24 12:09 Globulin 2.6 g/dL (1.3-4.6) 12/27/24 12:09 Ser , Semi-Qnt < 1.00 mIU/mL 12/27/24 12:09 Urine Color Yellow (Yellow) 12/27/24 13:00 Urine Appearance Clear (CLEAR) 12/27/24 13:00 Urine pH 6.0 (5-7) 12/27/24 13:00 Ur Specific [place] 1.015 (1.005-1.030) 12/27/24 13:00 Urine Protein Negative (Negative) 12/27/24 13:00 Urine Glucose (UA) Negative (Normal) 12/27/24 13:00 Urine Ketones Negative (Negative) 12/27/24 13:00 Urine Blood Negative (Negative) 12/27/24 13:00 Urine Nitrate Negative (Negative) 12/27/24 13:00 Urine Bilirubin Negative (Negative) 12/27/24 13:00 Urine Urobilinogen 0.2 mg/dL (Negative) 12/27/24 13:00 Ur Leukocyte Esterase Negative (Negative) 12/27/24 13:00 Urine RBC 0-2 /hpf (0-2) 12/27/24 13:00 Urine WBC 0-5 /hpf (0-5) 12/27/24 13:00 Ur Squamous Epith Cells 0-5 /hpf (0-5) 12/27/24 13:00 Amorphous Sediment Not Reportable 12/27/24 13:00 Urine Bacteria None seen /hpf (NONE) 12/27/24 13:00 Hyaline Casts 0-4 /lpf H 12/27/24 13:00 No radiology studies performed this visit Critical Care Time 2 Critical Care Time: Critical Care Time: No Discharge Plan Discharge Patient Disposition: Home Clinical Impression: Abdominal cramping, Pain in rectum, Painful rectal bleeding Condition: Stable Prescriptions: New dicyclomine 20 mg tablet 20 mg PO QID PRN (Reason: abdominal pain) Qty: 20 0RF No Action testosterone 20.25 mg/1.25 gram (1.62 %) gel in metered-dose pump See Rx Instructions .ROUTE .COMPLEX Rx Instructions: Apply 2 pumps topically every morning to shoulder, upper arm. albuterol sulfate 90 mcg/actuation HFA aerosol inhaler 2 inh INHALATION Q4H PRN (Reason: shortness of breath or wheezing) Qty: 18 0RF polyethylene glycol 3350 [Miralax] 17 gram/dose powder 17 g PO DAILY PRN (Reason: Constipation) Rx Instructions: Once to twice daily for prevention of constipation Discharge Orders: Discharge ED (Routine); Ordered 12/27/24 Ordered By: Onofre Gerard Referrals: Charles Molina MD [Primary Care Provider, Family Practice] Discharge Diet: Usual diet Discharge Activity: Resume usual activity Patient Instructions: Abdominal Pain (ED), Opioid Safety, Pain Management Activity Restrictions/Additional Instructions: Take the medication as directed. Your prescription was sent electronically to the [facility] pharmacy in [place]. Jjmi-liq-[id number] stool softener such as Colace or MiraLAX as directed. [id number]-[id number] Tylenol as directed for pain if needed. Rest, increase fluids. Follow-up with your BACK PADDER as scheduled later this month. Follow-up with your primary care provider in 1 to 2 weeks for recheck. Follow-up with your doctor that prescribes your testosterone to discuss the symptoms. Return to the emergency department with any worsening symptoms. Stand Alone Forms: Work/School Release Print Language: Faroese Coding Level of Care Code ED Lan Specialist for Karie Corbin
[2024-12-27 14:54] VITALS: BP 103/63; PULSE 67; O2SAT 98
[2024-12-27 16:22] LABS: Chlamydia Trachomatis NOT DETECTED; Neisseria Gonorrhea NOT DETECTED
== END 2024-12-27 14:54 | disposition home or self-care (01) ==
PROVIDERS: Emergency Medicine; Emergency Provider Physician Assistant; PCP Family Medicine
DX: R10.9 Unspecified abdominal pain (principal); K62.89 Other specified diseases of anus and rectum; K62.5 Hemorrhage of anus and rectum; F17.290 Nicotine dependence, other tobacco product, uncomplicated
CPT/HCPCS: 12345; 36415; 80053; 81001; 84702; 85025; 87491; 87591; 99283

== ENCOUNTER → 2025-01-07 10:17 | Outpatient (BNVA) | payer BC, MEDICAID, SELFPAY | PROVIDERS: PCP Family Medicine; Visit Provider Obstetrics & Gynecology | DX: N91.2 Amenorrhea, unspecified (principal); R30.0 Dysuria | CPT/HCPCS: 81000; 81025 ==

== ENCOUNTER 2025-01-20 08:59 | Emergency (ER) | payer BC, MEDICAID, SELFPAY ==
[2025-01-20 09:05] VITALS: BP 137/76; PULSE 108; RESP 20; O2SAT 100; BMI 30.2
--- NOTE | 2025-01-20 09:05 | ECG_ITS ---
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 Measurements Intervals [place] Rate: 82 P: 31 UT: 143 QRS: -46 QRSD: 85 T: 55 QT: 381 QTc: 446 Interpretive Statements SINUS RHYTHM WITH SINUS ARRHYTHMIA LEFT ANTERIOR FASCICULAR BLOCK [QRS AXIS <= -45, QR IN I, RS IN II] Compared to ECG 11/25/2024 15:09:50 Left anterior fascicular block now present Ectopic atrial rhythm no longer present Left-axis deviation no longer present Electronically Signed On 01-21-2025 08:56:35 CDT by Benjamin Spain M.D. [email or web address] [id number]
--- NOTE | 2025-01-20 09:05 | XRR_ITS ---
PROCEDURE INFORMATION: Exam: XR Chest Exam date and time: 01/20/2025 9:14 AM Age: 29 years old Clinical indication: Shortness of breath; Additional info: SOB TECHNIQUE: Imaging protocol: Radiologic exam of the chest. Views: 1 view. COMPARISON: CR XR chest 1V portable [id number] 02/24/2021 10:29 AM FINDINGS: Lungs: The pulmonary vessels are within normal limits. The lungs are clear. Pleural spaces: No pneumothorax. Heart/Mediastinum: The cardiomediastinal silhouette is within normal limits. Bones/joints: Osseous structure is unremarkable. XR/XR chest 1V portable [id number] IMPRESSION: No acute pulmonary finding.
[2025-01-20 09:10] VITALS: O2SAT 99
--- OUTSIDE RECORDS SUMMARY | 2025-01-20 09:11 | XMS_ITS | Clinical Summary ---
Author Organization [facility] Address [address] Davisn: Epic Prelude ADT THADDEUS THOMPSON [address] Care Team Providers Care Advertising Representative Name Role Phone Charles Molina MD Primary Care Provider [phone] Allergies Active Allergy Reactions Criticality Noted Date Comments Mushroom Combination No.1 Swelling Low 10/15/2009 Medications No known medications Active Problems Problem Noted Date Diagnosed Date Slow transit constipation 08/21/2024 Uterine leiomyoma 08/21/2024 Acute midline low back pain 03/29/2022 Muscle spasm of back 03/29/2022 Scoliosis of thoracic spine 03/29/2022 Encounters Date Type Department Care Team Description 12/22/2024 External Device Data [facility] ABSTRACTION Provider, Abstract 12/22/2024 External Device Data [facility] ABSTRACTION Provider, Abstract 12/22/2024 External Device Data [facility] ABSTRACTION Provider, Abstract 12/15/2024 External Device Data [facility] ABSTRACTION Provider, Abstract 11/17/2024 External Device Data [facility] ABSTRACTION Provider, Abstract from Last 3 Months Family History Medical History Relation Name Comments Healthy Father Healthy Mother Relation Name Status Comments Father Mother Social History Tobacco Use Types Packs/Day Years Used Date Smoking Tobacco: Never Smokeless Tobacco: Never Tobacco Cessation:Counseling Given: Not Answered Alcohol Use Standard Drinks/Week Comments No 0 (1 standard drink = 0.6 oz pur e alcohol) Feeling Safe Answer Date Recorded Are you in a relationship wi th someone who hurts you emotionally and/or physically? No 08/21/2024 Comments No Sex and Gender Information Value Date Recorded Sex Assigned at Not on file Legal Sex Female 5:32 AM DOPE WEIGH OPERATOR Gender Identity Not on file Sexual Orientation Not on file Last Filed Vital Signs Vital Sign Reading Time Taken Comments Blood Pressure 102/62 08/21/2024 3:00 PM DOPE WEIGH OPERATOR Pulse 68 08/21/2024 3:00 PM DOPE WEIGH OPERATOR Temperature 36.9 C (98.4 F) 08/21/2024 12:06 PM DOPE WEIGH OPERATOR Respiratory Rate 19 08/21/2024 11:57 AM DOPE WEIGH OPERATOR Oxygen Saturation 98% 08/21/2024 3:00 PM DOPE WEIGH OPERATOR Inhaled Oxygen Concentration - - Weight 72.3 kg (159 lb 6.4 oz) 08/21/2024 11:57 AM DOPE WEIGH OPERATOR Height 152.4 cm (5') 08/21/2024 11:57 AM DOPE WEIGH OPERATOR Body Mass Index 31.13 08/21/2024 11:57 AM DOPE WEIGH OPERATOR Plan of Treatment Health Maintenance Due Date Last Done Comments HPV/Cotest () 10/26/2016 CERVICAL CANCER SCREENING 03/26/2021 PAP SMEAR 03/26/2021 03/26/2018 INFLUENZA VACCINE (#1) 2025 05/14/2019 DTAP/TDAP/TD VACCINES (7 - Td or Tdap) 11/09/2025 11/10/2015, 02/18/2001, 06/10/1997, Additional history exists HEPATITIS B VACCINES Completed 08/19/1996, 03/18/1996, 01/14/1996 HPV VACCINES Aged Out No longer eligi ble based on patient's age to complete this topic Insurance FORMERLY [facility] MEDICAID Care Teams Advertising Representative Relationship Specialty Start Date End Date Charles Molina MD [phone] [place] [address] PCP - General Family Practice 03/29/22"
--- OUTSIDE RECORDS SUMMARY | 2025-01-20 09:11 | XMS_ITS | Data Portability ---
Author Organization [facility], [facility] Address [address] [facility] [address] [place] [address] Care Team Providers Care Live Study Manager Name Role Phone LENI ALEXANDER Primary Care Provider Assessment No assessment recorded. Plan of Treatment Reminders Order Date Submit Date Provider Last Modified By Organization Details Last Modified Time Details Appointments None recorded. Lab rapid flu (A+B), PCR 2024 025 [email or web address] 47 [facility] ([facility]), [address] [place], [address], 5 22:08:15 rapid strep group A, throat [address] ([facility]), [address] [place], [address], 4 12:14:54 Referral None recorded. Procedures None recorded. Surgeries None recorded. Imaging None recorded. Medication Orders amoxicillin 875 mg tablet 2023 025 GARY [facility], [address], [place], [address], 5 16:35:32 Ciprodex 0.3 %-0.1 % ear drops,suspe nsion 2023 024 [email or web address] [facility], [address], [place], [address], 4 09:46:39 cephalexin 500 mg capsule 2022 024 GARY [facility], [address], [place], [address], 4 15:54:51 Patient TargetsNo targets recorded. Patient InstructionsNo instructions recorded. Reason for Referral None Reported. Results Created Date Observation Date Name Description Value Unit Range Abnormal Flag Note LastModifiedBy Organization Detail LastModifiedTime 01/11/20 24 01/11/2024 rapid strep group A, throa t Strep positi ve Not Available [facility] ([facility]) [address] [place] [address], [phone], 01/11/2024 09:49:52 08/31/19 25 08/31/2024 rapid flu (A+B) , PCR Influenza A positi ve Not Available [facility] ([facility]) [address] [place], [address], 08/31/2024 12:51:01 08/31/19 25 08/31/2024 rapid flu (A+B) , PCR Influenza B negati ve Not Available [facility] ([facility]) [address] [place], [address], 08/31/2024 12:51:01 Result Notes None recorded. Problems Name Problem SNOMED Code Status Onset Date Resolution Date Notes Provider Name and Address Organization Details Recorded Time Irritable bowel syndrome 63430058 Active 2020 IRRITABLE BOWEL SYNDROME; 08/08/2020 10:57AM by Roberto Carlos Cardoza, Office Visit; Promoted; acuity set as *; TERE webster [facility] 5 12:18:32 Exercise-i nduced asthma 26022584 Active 2020 EXERTIONAL ASTHMA; 08/08/2020 10:57AM by Roberto Carlos Cardoza, Office Visit; Promoted; acuity set as *; [facility]ERE [facility]USTAVO [facility] 5 12:18:17 Problem Notes None recorded. Procedures Surgical History Date Name Laterality Status Provider Name and Address Organization Details Recorded Time excision of lesion of ovary completed TERE VELA [facility] L[facility]LV[facility]gie 12/15/2024 12:22:09 Imaging Results None recorded. Procedure Notes None recorded. Medical Equipment None Reported. Allergies Allergen ID Allergen Name Allergen Category Reaction Reaction Severity Criticality Documentation Date Start Date Code Code System Note Provider Name and Address Organization Details Recorded Time 326 loratadin e medicatio n Not available Not available Not available 12/06/2022 68834 RxNorm [facility] 3 14:35:46 Medications Name Sig Start Date Stop Date Status Note LastModified by Organization Details LastModified Time fluoxetin e 40 mg capsule take 1 capsule BY MOUTH EVERY MORNING 01/10 completed Not Available Not Available Not Available Mirena 21 mcg/24 hr (up to 8 years) 52 mg intrauter ine device Take by intraute rine route. active Dr. Coronel Not Available Not Available No t Available doxycycli ne hyclate 100 mg capsule Take 1 capsule twice a day by oral route for 7 days. 10/06 completed Not Available Not Available Not Available ondansetr on HCl 4 mg tablet Take 1 tablet 3 times a day by oral route as needed. 2024 active Not Available Not Available Not Avai lable prednison e 20 mg tablet Take 1 tablet twice a day by oral route for 5 days. 10/06 completed Not Available Not Available Not Available clonazepa m 0.5 mg tablet TAKE 1/2 (ONE-CARLYLE F) TABLET BY MOUTH TWICE DAILY 12/06 completed Not Available Not Available Not Available metronida zole 500 mg tablet TAKE 1 TABLET BY MOUTH TWICE DAILY 12/06 completed Not Available Not Available Not Available lamotrigi ne 25 mg tablet 12/06 completed Not Available Not Available Not Available cyprohept adine 4 mg tablet TAKE 2 TABLETS BY MOUTH AT BEDTIME 12/06 completed Not Available Not Available Not Available amoxicill in 875 mg tablet Take 1 tablet every 12 hours by oral route for 7 days. 08/31 completed Not Available Not Available Not Available lorazepam 0.5 mg tablet take 1/2 tablet BY MOUTH TWICE DAILY NEEDED FOR acute or severe anxiety 12/06 completed Not Available Not Available Not Available cephalexi n 500 mg capsule Take 1 capsule every 6 hours by oral route for 7 days. 10/06 completed Not Available Not Available Not Available albuterol sulfate HFA 90 mcg/actua tion aerosol inhaler Inhale 2 puffs every 4 hours by inhalati on route as needed. 10/06 completed Not Available Not Available Not Available fluoxetin e 20 mg capsule TAKE TWO CAPSULES BY MOUTH EVERY DAY 12/06 completed Not Available Not Available Not Available lamotrigi ne 100 mg tablet TAKE 1 TABLET BY MOUTH DAILY FOR 1 WEEK. 12/06 completed Not Available Not Available Not Available Abilify 15 mg tablet qhs 08/31 completed 0; Recorded 08/08/19 21 10:57AM by Roberto Carlos Cardoza, Office Visit; Not Available Not Available Not Available Ciprodex 0.3 %-0.1 % ear drops,anne-marie pension INSTILL 4 DROPS INTO AFFECTED EAR(S) TWICE DAILY FOR 7 DAYS 01/10 completed Not Available Not Available Not Available testoster one active Not Available Not Available Not Available ibuprofen 10/06 completed Recorded 06/20/20 16 5:06PM by Shant redding, Office Visit; Refill Quantity : 0; Not Available Not Available Not Available divalproe x 08/31 completed Not Available Not Available Not Available Cymbalta qam 01/10 completed 0; Recorded 08/08/19 21 10:57AM by Roberto Carlos Cardoza, Office Visit; Not Available Not Available Not Available paliperid one ER 6 mg tablet,ex tended release 24 hr TAKE ONE TABLET BY MOUTH EVERY MORNING 12/06 completed Not Available Not Available Not Available Vitals Date Recorded Body height Body mass index (BMI) Body weight Oxygen saturation Oxygen saturation in Arterial blood by Pulse oximetry Heart rate Body temperature Systolic blood pressure Diastolic blood pressure Provider Name and Address Organization Details Last Updated DateTime 5 152.4 cm 31.7 kg/m2 46178.3 6 g 99 % 99 % 114 /min 99.5 [degF] 124 mm[Hg] 78 mm[Hg] Lesly Locke [facility] 5 12:50:50 Date Recorded Body height Body mass index (BMI) Body weight Oxygen saturation Oxygen saturation in Arterial blood by Pulse oximetry Heart rate Respiratory rate Body temperature Systolic blood pressure Diastolic blood pressure Provider Name and Address Organization Details Last Updated DateTime 4 152.4 cm 32.7 kg/m2 48807.3 3 g 98 % 98 % 84 /min 18 /min 97.1 [degF] 130 mm[Hg] 80 mm[Hg] [facility] 4 13:23:37 Date Recorded Body height Body mass index (BMI) Body weight Body temperature Oxygen saturation Oxygen saturation in Arterial blood by Pulse oximetry Heart rate Systolic blood pressure Diastolic blood pressure Provider Name and Address Organization Details Last Updated DateTime 5 152.4 cm 30.1 kg/m2 91075.2 2 g 98.1 [degF] 99 % 99 % 81 /min 115 mm[Hg] 80 mm[Hg] TERE TEJADAVilma VELA [facility] 5 12:15:35 Date Recorded Body height Body mass index (BMI) Body weight Oxygen saturation Oxygen saturation in Arterial blood by Pulse oximetry Heart rate Respiratory rate Body temperature Systolic blood pressure Diastolic blood pressure Provider Name and Address Organization Details Last Updated DateTime 4 152.4 cm 32.6 kg/m2 01596.6 3 g 99 % 99 % 122 /min 16 /min 98.2 [degF] 122 mm[Hg] 58 mm[Hg] Charmaine Slade [facility] 4 09:45:52 Date Recorded Body height Body mass index (BMI) Body weight Oxygen saturation Oxygen saturation in Arterial blood by Pulse oximetry Heart rate Respiratory rate Body temperature Systolic blood pressure Diastolic blood pressure Provider Name and Address Organization Details Last Updated DateTime 3 152.4 cm 32.2 kg/m2 47498.7 4 g 99 % 99 % 76 /min 20 /min 97.3 [degF] 110 mm[Hg] 62 mm[Hg] ANGEL MAHARAJ [facility] 3 14:01:12 Social History Question Answer Notes LastModified by Organizat ion Details LastModified Time Tobacco Smoking Status Former Smoker Charmaine Slade darin, [facility] 01/11/2024 09:48:15 When Did You Quit Smoking? 1-5yearssinc elastcigaret te [email or web address] Information not available 12/15/2024 Sex: Unknown Functional Status None recorded. Mental Status None recorded. Family History Relationship Description Onset Age of this Age Resolved Age Notes LastModified by Organization Details LastModified Time Mother Malignant tumor of thyroid gland 62 [email or web address] Not available 11/20 12:20:51 Maternal Grandmother Malignant tumor of colon [email or web address] Not available 11/20 12:21:05 Medical History Condition Response Coronary Artery Disease N Other N Gout N Kidney Stones N Blood Diseases N Hyperthyroidism N Breast Cancer N Blood Transfusion N Depression N Hypothyroidism N Lung Disease N COPD N Developmental or Behavioral Disorders N Defects or Inherited Disease N Breast Problem N Difficulty Swallowing N Anesthesia Complications N Anxiety Disorder N Meniere's disease N Muscle, Joint, or Bone Problems N Vision or Eye Problems N Arthritis N Infertility N Polyps N Cancer N Stroke N Varicosities N Endometriosis N Bladder or Kidney Problems N High Cholesterol N Liver Disease N Fibromyalgia N Headaches N Kidney Disease N Allergies/Hayfever N Heart Problems N Ear or Hearing Problems N Hospitalizations N Thyroid Problems N GI Problems N ADD/ADHD N Skin Problems N Eating Disorder N Anemia N Constipation N Mental Illness N Ovarian Cancer N Diabetes N Bedwetting N Seizures/Epilepsy N Tuberculosis N Eczema N Diverticulitis N Abuse/Domestic Violence N Asthma N Reflux/GERD N Hepatitis N Heart Disease N Pulmonary Embolism N Pre-Eclampsia N Hypertension N Chronic Ear Infections N Osteoporosis N Chicken Pox N Autism Spectrum Disorder (ASD) N Thrombophilias N Gynecological History Statement/Question Response Abnormal Pap N Date of Last Pap Smear Obstetrics History GPAL:G 4 P 3 0 1 2 Type Value Full Term 3 Spontaneous 1 Living 2 Total 4 Immunizations Vaccine Type Date Status Note Provider Nam e and Address Organization Details Recorded Time Tdap 11/10/2015 completed ANGEL webster [facility] 05/17/2023 14:01:34 IPV 02/18/2001 completed RADAMESA GREEN [facility] 05/17/2023 14:01:34 MMR 02/18/2001 completed TAMATHA GREEN null, [facility] 05/17/2023 14:01:34 MMR 03/16/1997 completed FIFIATHA GREEN null, [facility] 05/17/2023 14:01:34 Hep B, unspecified formulation 08/19/1996 completed RADAMESA CAROL ANN [facility] 05/17/2023 14:01:34 Hep B, unspecified formulation 01/14/1996 completed TAMATHA GREEN null, [facility] 05/17/2023 14:01:34 Hep B, unspecified formulation 03/18/1996 completed FIFIATHA GREEN [facility], [facility] 05/17/2023 14:01:34 OPV 01/14/1996 completed FIFIATHA GREEN [facility] 05/17/2023 14:01:34 OPV 03/18/1996 completed TAMATHA GREEN null, [facility] 05/17/2023 14:01:34 OPV 06/10/1997 completed TAMATHA GREEN [facility] 05/17/2023 14:01:34 Hib ([facility]) 01/14/1996 completed TAMATHA GREEN [facility] 05/17/2023 14:01:34 Hib ([facility]) 03/16/1997 completed TAMATHA GREEN null, [facility] 05/17/2023 14:01:34 Hib ([facility]) 03/18/1996 completed TAMATHA GREEN null, [facility] 05/17/2023 14:01:34 Hib ([facility]) 05/20/1996 completed TAMATHA GREEN null, [facility] 05/17/2023 14:01:34 DTaP 01/14/1996 completed TAMATHA GREEN null, [facility] 05/17/2023 14:01:34 DTaP 02/18/2001 completed TAMATHA GREEN null, [facility] 05/17/2023 14:01:34 DTaP 03/18/1996 completed TAMATHA GREEN null, [facility] 05/17/2023 14:01:34 DTaP 05/20/1996 completed TAMATHA GREEN null, [facility] 05/17/2023 14:01:34 DTaP 06/10/1997 completed TAMATHA GREEN null, [facility] 05/17/2023 14:01:34 Past Encounters Encounter ID Performer Location Encounter Start Date Encounter Closed Date Diagnosis/Indication Diagnosis SNOMED-CT Code Diagnosis ICD10 Code Diagnosis Note [id number] KEYUR RAMIREZ [facility] ([facility]) [address] [place] [phone] 12/06/2022 14:21:57 12/06/2022 15:52:40 Tuberculosis screening 688482232 Z11.1 [id number] KEYUR RAMIREZ [facility] ([facility]) [address] [place] [phone] 01/16/2023 16:20:11 01/31/2023 12:04:35 Acute upper respiratory infection 76499659 J06.9 Start doxycyclin e and prednisone today. Can take use albuterol PRN for cough. Encouraged patient to push fluids and use cool mist humidifier at night. Can take tylenol/ib uprofen as needed for pain and fever. Encouraged patient to return for further evaluation if no improvemen t in 3-5 days. If severe SOB or chest pain occurs, go to ED. Patient verbalized understand ing. [id number] Lady Miller MD [facility] ([facility]) [address] [place] [phone] 5 05/17/2023 13:49:20 05/25/2023 11:08:27 Infected insect bite 960918217 L08.9 [id number] KEYUR RAMIREZ [facility] ([facility]) [address] [place] [phone] 5 10/07/2023 13:15:54 10/07/2023 16:04:58 Acute otitis externa 84336836 H60.501 Start Ciprodex today. Encouraged patient to avoid swimming and submerging head in water for the next 14 days. Can use heat compresses as needed for pain relief. If not improving in 7 days, should return for further evaluation . Patient verbalized understand ing. [id number] DANNY STEPHENS [facility] ([facility]) [address] [place] [phone] 5 01/11/2024 09:39:30 01/11/2024 10:39:21 Sore throat 035604441 J02.9 Streptococ nataly sore throat 21278063 J02.0 Push cold oral fluids including Popsicles. Alternate tylenol/mo lars for fever or discomfort .May use throat lozenges, chlorasept ic spray, or saltwater gargles.ta ke antibiotic as directedIf you develop worsening symptoms such as unable to swallow, persistant fever, or concerns arise then return for re-eval. [id number] Robert Rutledge DO [facility] ([facility]) [address] [place] [phone] 08/31/2024 12:18:20 08/31/2024 13:23:07 Fever 963958438 R50.9 Influenza caused by Influenza A virus 236450655 J09.X2 I counseled on + rapid flu test today as above. counseled on dx, treatment options, expectatio ns.rest, increase fluids, nsaids prn, daily vitamins. stay home until fever free for 24-48hrs with improved symptoms. Return to office with no improvemen t or any problems. Go to ER with severe worsening or severe problems. [id number] Lady Miller MD [facility] ([facility]) [address] [place] [address] 12/15/2024 11:34:20 12/17/2024 08:00:20 Nausea, vomiting and diarrhea 5197916 R11.2 R19.7 I reassured the patient that with her IUD in place it would be unlikely that she would be . Additional ly since she is less than a week out from having unprotecte d intercours e it would be extremely rare for the symptoms to be attributed to as her hormone would not even be detectable at this time. She seemed a little bit reassured by this.She is keeping fluids down and should maintain a clear diet and advance to a bland diet slowly as tolerated. Follow-up if worsening or not improved Health Concerns Section Related Observation LastModified by Organization Detai ls LastModified Time None Recorded Concern Status LastModified by Organization Details LastModified Time None Recorded Advance Directives Directive None Recorded Payers Insurance Date Sequence Insurance Name Policy Number Policy Laguerre Covered Member ID Laguerre Member ID Guarantor Name 12/15/2024 1 [employer] [place]MED[place]AC[place] - HMO) [id number] Kayla Rowley [id number] Kayla Rowley Notes Date Note Type Note Provider Name and Address Organization Details Recorded Time 05/17/2023 text/html General Rash/Ski n LesionReported bypatient.Location:ot her: (buttock, right side) Quality:itchy;painful (only when touched);red;swollen Severity:moderate Duration:has noted for <1 week Onset/Timing:abrupt onset Context:scratching Associated Symptoms:no fever; no cold symptoms; no nausea; no vomiting; no diarrhea Lady Miller MD [address] [place] [address], [phone], [facility], [place] 05/19/2023 17:30:13 10/07/2023 text/html EaracheReported bypatient.Location:[facility] Quality:burning; aching; throbbing; sharp Severity:current pain 4/10 Associated Symptoms:nose/sinus problems;ringing in the ears;ears feel full;itching (pruritus) Patient is a 27 year old female who presents to the walk in clinic today for right ear pain. Patient reports symptoms started today. Ear is painful to touch. Has had some drainage. No fevers. DANNY RAMIREZ-Billie [address] [place], [phone], [facility], [place]. 10/07/2023 14:36:07 01/11/2024 text/html Sore ThroatRepor fatuma bypatient.Location:[facility] side Associated Symptoms:no fever; no nausea; no vomiting; no headache;cough walk in patientpatient is here today for a sore throat and cough that started 5 days ago. Has been taking otc allergy meds for her symptoms with no improvement. The left ear hurts a little. denies fever. DANNY STEPHENS [address] [place], [address], [facility], [place]. 01/11/2024 10:32:39 08/31/2024 text/html walk inx 1 day c ough, congestion, chills, body aches, HAno n/v/d. Robert Rutledge DO [address] [place] [address], [phone], [facility], L[facility]maL[facility]maC. 08/31/2024 13:21:44 12/15/2024 text/html teeny tiny bit worried about pregnancyShe had unprotected sex less than a week agoShe took a test this morning and it was negativepast couple days crampingwatery diarrheatook tums for vomiting.... She is keeping down clear fluids Lady Miller MD [address] [place] [address], [phone], [facility], LSimaC. 12/16/2024 16:04:18 OBGyn Episode No OBEpisode recorded.
[2025-01-20 09:17] LABS: Hematocrit 40.9 % (36-47); Hemoglobin 13.90 g/dL (11.27-16.99); Mean Corpuscular HGB Conc 34.0 g/dL (30-55); Mean Corpuscular Hemoglobin 30.3 pg (27-33); Mean Corpuscular Volume 89.3 fl (85-98); Nucleated Red Blood Cells % 0 %; Platelet Count 254 10^3/cmm (157-399); Red Blood Count 4.58 10^6/uL (3.85-5.65); White Blood Count 7.47 10^3/uL (3.29-11.43)
[2025-01-20] MEDS: LORazepam 1 MG/0.5 ML injection 0.5 MG IVP (09:20)
--- NOTE | 2025-01-20 09:27 | ED_ITS ---
HPI - SOB/Dyspnea 2 General: Chief Complaint: Shortness of Breath/Dyspnea Stated Complaint: SOB Time Seen by Provider: 01/20/25 09:01 Source: patient Mode of arrival: ambulatory Limitations: no limitations History of Present Illness: HPI Narrative: 29-year-old female states that she been having shortness of breath since yesterday. States that her dyspnea is been exertional she has had some chest pains as well. States she has had a mild cough has been nonproductive. She denies any vomiting or diarrhea. She has no history of asthma. Associated symptoms: Reports chest pain; Deny abdominal pain, fever(s), nausea or vomiting Related Data Home Medications ?Medication ?Instructions ?Recorded ?Confirmed testosterone See Rx Instructions .Route . COMPLEX 11/19/24 01/07/25 polyethylene glycol 3350 17 17 g PO DAILY PRN Constipa tion 11/25/24 01/07/25 gram/dose oral powder (Miralax) Previous Rx's ?Medication ?Instructions ?Recorded albuterol sulfate 90 mcg/actuation 2 inh inhalation Q4 H PRN shortness 09/03/24 aerosol inhaler of breath or wheezing #18 gr ams dicyclomine 20 mg tablet 20 mg PO QID PRN abdominal p ain 12/27/24 #20 tabs quetiapine 25 mg tablet 25 mg PO DAILY #30 tabs 12/21 10/13 sertraline 25 mg tablet 25 mg PO DAILY #30 tabs 12/21 10/13 Allergies Allergy/AdvReac Type Severity Reaction Status Date / Time loratadine (From Claritin) Allergy Severe ADR-Nose Verified 01/07/25 09:43 Bleed mushroom Allergy ALGY-Anaphy Verified 01/07/25 09:43 laxis Review of Systems 2 Const: Denies: fever(s), chills, body aches or change in appetite ENMT: Denies: throat pain or dental pain Card: Reports: chest pain Resp: Reports: dyspnea GI: Denies: abdominal pain, nausea, vomiting or diarrhea Musc: Denies: neck pain or back pain Skin/Breast: Denies: rash Neuro: Denies: headache(s) PFSH ED 2 PFSH: Medical History Nicotine dependence, cigarettes, uncomplicated Mild intermittent asthma Schizoaffective disorder, depressive type NSV (nonspecific vaginitis) Chronic post-traumatic stress disorder Generalized anxiety disorder Panic disorder without agoraphobia Psychiatric care Surgical History No pertinent past surgical history No pertinent past surgical history Family History Grandfather Diabetes paternal Family/Other Diabetes paternal uncle Mother Thyroid disease, Onset Age: 62 Thyroid cancer Grandmother Colon cancer maternal Other CAD (coronary artery disease) Cancer Denies family history of Ovarian cancer Clotting disorder Hyperlipidemia Breast cancer Bleeding disorder Hypertension Uterine cancer Stroke Social History Smoking and tobacco/nicotine status: never used tobacco/nicotine Current gender identity: Trans [id number] Physical Exam 2 Const: COMMON NORMALS: no acute distress, patient oriented x3 and healthy appearing HENMT: COMMON NORMALS: normocephalic and atraumatic HEAD & SCALP: n ormocephalic and atraumatic Eye: COMMON NORMALS: Equal, round and reactive pupils present and EOMs intact bilaterally PUPIL: Yes Equal, round and reactive pupils present Neck/C-Spine: COMMON NORMALS: full ROM and supple Chest: COMMONS NORMALS: normal inspection of the chest and normal palpation of entire chest wall Resp: COMMON NORMALS: normal respiratory effort, No retractions, No use of accessory muscles and clear to auscultation bilaterally AUSCULTATION: clear to auscultation bilaterally Cardio: COMMON NORMALS: regular rate, regular rhythm and No murmurs present (Cardio) RATE: regular rate RHYTHM: regular rhythm GI: COMMON NORMALS: Normal to inspection, nondistended, normoactive bowel sounds present, Soft to palpation, non-tender and no masses PALPATION: Yes Soft to palpation Extremity: COMMON NORMALS: normal to inspection and full ROM Neuro: COMMON NORMALS: patient oriented x3, moves all extremities and no focal motor deficits Psych: COMMON NORMALS: mental status grossly normal, Normal thought process present and cooperative THOUGHT PROCESS: Normal thought process present Skin: COMMON NORMALS: no rashes or lesions noted and no wounds GENERAL SKIN EXAM: no rashes or lesions noted Course 2 Vital Signs: Vital signs: Vital Signs Pulse Rate 108 H 01/20/25 09:05 Respiratory Rate 20 H 01/20/25 09:05 Blood Pressure 137/76 01/20/25 09:05 Pulse Oximetry 99 01/20/25 09:10 Oxygen Delivery Me thod Room Air 01/20/25 09:10 MDM - SOB/Dyspnea Medical Decision Making Patient presents here with shortness of breath is much improved here x-ray shows no signs of pneumonia D-dimer was negative troponins negative no signs of pulmonary emboli. She stable for discharge follow-up PCP return if worsening she understands agrees to plan. Medical Records I reviewed the patient's medical records. Lab Data I reviewed the patient's lab results. 01/20/25 09:06 01/20/25 09:06 Labs/Radiology: Radiology Impressions Chest X-Ray 01/20/25 09:05 IMPRESSION: No acute pulmonary finding. Laboratory Results WBC 7.47 10^3/uL (3.29-11.43) 01/20/25 09:06 RBC 4.58 10^6/uL (3.85-5.65) 01/20/25 09:06 Hgb 13.90 g/dL (11.27-16.99) 01/20/25 09:06 Hct 40.9 % (36-47) 01/20/25 09:06 MCV 89.3 fl (85-98) 01/20/25 09:06 MCH 30.3 pg (27-33) 01/20/25 09:06 MCHC 34.0 g/dL (30-55) 01/20/25 09:06 RDW 12.4 % (12.1-15.1) 01/20/25 09:06 Plt Count 254 10^3/cmm (157-399) 01/20/25 09:06 MPV 9.3 fL (7.4-10.4) 01/20/25 09:06 Neut % (Auto) 56.3 % 01/20/25 09:06 Lymph % (Auto) 30.4 % 01/20/25 09:06 [place] % (Auto) 7.2 % 01/20/25 09:06 Eos % (Auto) 4.6 % 01/20/25 09:06 Baso % (Auto) 1.1 % 01/20/25 09:06 Neut # (Auto) 4.21 10^3/uL (1.8-7.7) 01/20/25 09:06 Lymph # (Auto) 2.3 10^3/uL (0.8-4.8) 01/20/25 09:06 [place] # (Auto) 0.5 10^3/uL (0.2-0.9) 01/20/25 09:06 Eos # (Auto) 0.3 10^3/uL (0.0-0.8) 01/20/25 09:06 Baso # (Auto) 0.1 10^3/uL (0.0-0.1) 01/20/25 09:06 Nucleated RBC % (auto) 0 % 01/20/25 09:06 Nucleated RBCs # 0.0 /100WBC 01/20/25 09:06 D-Dimer 0.28 ug/mLFEU (0-0.59) 01/20/25 09:06 Troponin T Baseline < 6 ng/L (0-10) 01/20/25 09:06 HCG, Qual Negative (Negative) 01/20/25 09:06 All radiology interpretation(s) finalized by discharge EKG Data EKG 1: I personally reviewed and interpreted this EKG as follows: EKG Interpretation Date: 01/20/25 EKG interpretation time: 09:06 Interpretation: nsr hr [address] or t wave abnormalities qrs 85 qtc 420 Discharge Plan Discharge Patient Disposition: Home Clinical Impression: Shortness of breath Condition: Stable Prescriptions: No Action testosterone 20.25 mg/1.25 gram (1.62 %) gel in metered-dose pump See Rx Instructions .ROUTE .COMPLEX Rx Instructions: Apply 2 pumps topically every morning to shoulder, upper arm. quetiapine 25 mg tablet 25 mg PO DAILY Qty: 30 3RF sertraline 25 mg tablet 25 mg PO DAILY Qty: 30 3RF albuterol sulfate 90 mcg/actuation HFA aerosol inhaler 2 inh INHALATION Q4H PRN (Reason: shortness of breath or wheezing) Qty: 18 0RF polyethylene glycol 3350 [Miralax] 17 gram/dose powder 17 g PO DAILY PRN (Reason: Constipation) Rx Instructions: Once to twice daily for prevention of constipation dicyclomine 20 mg tablet 20 mg PO QID PRN (Reason: abdominal pain) Qty: 20 0RF Discharge Orders: Discharge ED (Routine); Ordered 01/20/25 Ordered By: Steph Gay Referrals: Charles Molina MD [Primary Care Provider, [facility]] - 4-7 days Discharge Diet: Advance as tolerated Discharge Activity: Resume usual activity Patient Instructions: Shortness of Breath (ED) Print Language: Trinidadian Coding Level of Care Code ED Administrative Job Titles for Karie Corbin
[2025-01-20 09:33] LABS: Troponin(5th) Baseline < 6 ng/L (0-10)
[2025-01-20 09:36] LABS: HCG, Serum Qual Negative (Negative)
[2025-01-20 09:52] VITALS: BP 100/63; PULSE 79; O2SAT 98
[2025-01-20 09:52] LABS: Alanine Aminotransferase 10 U/L (0-33); Albumin Level 4.5 g/dL (3.5-5.2); Alkaline Phosphatase 49 U/L (35-105); Anion Gap 17.9 (5-19); Aspartate Amino Transferase 15 U/L (0-32); Blood Urea Nitrogen 10 mg/dL (6-20); Calcium 8.9 mg/dL (8.5-10.5); Carbon Dioxide 20 mmol/L (22-29); Chloride 108 mmol/L (98-107); Creatinine Clr Calc Pharmacy 121.0449; Globulin 2.6 g/dL (1.3-4.6); Glucose 87 mg/dL (65-115); NT Pro B Type Natriuretic Pept 45 pg/mL (0-125); Osmolality Calculated 292 mOsm/kg (285-295); Potassium 3.9 mmol/L (3.5-5.1); Sodium 142 mmol/L (136-145); Total Protein 7.1 g/dL (6.6-8.7)
== END 2025-01-20 09:58 | disposition home or self-care (01) ==
PROVIDERS: Emergency Provider Emergency Medicine; PCP Family Medicine
DX: R06.02 Shortness of breath (principal)
CPT/HCPCS: 71045; 80053; 83880; 84484; 84703; 85025; 85378; 93005; 96374; 96375; 99285; J1100; J2060

== ENCOUNTER 2025-02-03 12:11 | Inpatient (IN) | payer BC, SELFPAY ==
--- NOTE | 2025-02-03 12:14 | ECG_ITS ---
[facility] Test Date: 2025-02-03 Pat Name: Kayla Rowley Department: Room: Gender: Female Audit Analyst: : 1995 Requested By: Jennifer Higginbotham Order Number: [id number] [place] MD: Rajendra Rubi M.D. Measurements Intervals [place] Rate: 61 P: -26 [place]: 152 QRS: -37 QRSD: 82 T: 54 QT: 412 QTc: 417 Interpretive Statements SINUS RHYTHM WITH SINUS ARRHYTHMIA LEFT AXIS DEVIATION [QRS AXIS < -30] Compared to ECG 01/20/2025 09:06:25 Left-axis deviation now present Left anterior fascicular block no longer present Electronically Signed On 02-03-2025 16:43:37 CDT by Rajendra Rubi M.D. [email or web address]
[2025-02-03 12:15] VITALS: BP 135/81; PULSE 69; RESP 18; TEMP 37.4; O2SAT 99; BMI 29.2
--- NOTE | 2025-02-03 12:15 | W.ED.PSYCHS ---
HPI - Psych General: Chief Complaint: Psychiatric Symptoms Stated Complaint: SI Time Seen by Provider: 02/03/25 12:12 History of Present Illness: 29-year-old female with a history of depression, schizoaffective disorder, PTSD, anxiety who presents emergency room by ambulance from clinic with suicidal thoughts. She says she has not been taking her medications for some time now. She will not tell me why. She says she does not have a specific plan at this time. Related Data Home Medications ?Medication ?Instructions ?Recorded ?Confirmed testosterone See Rx Instructions .Route .COMPLEX 11/19/24 02/03/25 polyethylene glycol 3350 17 17 g PO DAILY PRN Constipation 11/25/24 02/03/25 gram/dose oral powder (Miralax) quetiapine 25 mg tablet 25 mg PO DAILY 02/03/25 02/03/25 sertraline 25 mg tablet 25 mg PO DAILY 02/03/25 02/03/25 Previous Rx's ?Medication ?Instructions ?Recorded albuterol sulfate 90 mcg/actuation 2 inh inhalation Q4H PRN shortness 09/03/24 aerosol inhaler of breath or wheezing #18 grams Allergies Allergy/AdvReac Type Severity Reaction Status Date / Time loratadine (From Claritin) Allergy Severe ADR-Nose Verified 01/07/25 09:43 Bleed mushroom Allergy ALGY-Anaphy Verified 01/07/25 09:43 laxis Review of Systems Narrative: Constitutional symptoms: Negative except as documented in HPI. Skin symptoms: Negative except as documented in HPI. Eye symptoms: Negative except as documented in HPI. ENMT symptoms: Negative except as documented in HPI. Respiratory symptoms: Negative except as documented in HPI. Cardiovascular symptoms: Negative except as documented in HPI. Gastrointestinal symptoms: Negative except as documented in HPI. Genitourinary symptoms: Negative except as documented in HPI. Musculoskeletal symptoms: Negative except as documented in HPI. Neurologic symptoms: Negative except as documented in HPI. Psychiatric symptoms: Negative except as documented in HPI. Endocrine symptoms: Negative except as documented in HPI. [facility] ED PFSH: Medical History (Updated 02/03/25 @ 12:22 by Jennifer Celis MD) Nicotine dependence, cigarettes, uncomplicated Mild intermittent asthma Schizoaffective disorder, depressive type NSV (nonspecific vaginitis) Chronic post-traumatic stress disorder Generalized anxiety disorder Panic disorder without agoraphobia Psychiatric care Surgical History No pertinent past surgical history No pertinent past surgical history Family History Grandfather Diabetes paternal Family/Other Diabetes paternal uncle Mother Thyroid disease, Onset Age: 62 Thyroid cancer Grandmother Colon cancer maternal Other CAD (coronary artery disease) Cancer Denies family history of Ovarian cancer Clotting disorder Hyperlipidemia Breast cancer Bleeding disorder Hypertension Uterine cancer Stroke Social History Smoking and tobacco/nicotine status: never used tobacco/nicotine Current gender identity: Trans Rldyio-my-Rzdr Physical Exam Narrative: EXAM NARRATIVE: General: Alert, no acute distress. Skin: Warm, dry. Head: Normocephalic, atraumatic. Neck: Supple, trachea midline. Eye: Extraocular movements are intact. Ears, nose, mouth and throat: mucosa moist. Cardiovascular: Regular, Normal peripheral perfusion. Respiratory: Lungs are clear to auscultation, respirations are non-labored, breath sounds are equal, Symmetrical chest wall expansion. Gastrointestinal: Soft, Nontender, Non distended Musculoskeletal: Normal ROM, no deformity. Neurological: Alert and oriented, No focal neurological deficit observed. Psychiatric: Cooperative, flat affect, does not speak much, does endorse suicidal thoughts Course Vital Signs: Vital signs: Vital Signs Temperature 99.4 F 02/03/25 12:15 Pulse Rate 69 02/03/25 12:15 Respiratory Rate 18 02/03/25 12:15 Blood Pressure 135/81 02/03/25 12:15 Pulse Oximetry 99 02/03/25 12:15 Oxygen Delivery Me thod Room Air 02/03/25 12:15 MDM - Psych Medical Decision Making Differential diagnosis: Patient with reported depression and suicidal ideation. concerns for infection, alcohol intoxication, cardiac issues or other medical problems prior to psychiatric admission. Workup: labwork, ekg ordered to evaluate the pathologies and to clear the patient medically prior to psychiatric admission EKG: Time 1218. Rate 61. Normal sinus rhythm, No ST-T changes, no ectopy, normal AR & QRS intervals, This was reviewed and interpreted by myself the ER physician at 1222 Lab Review: Laboratory results were reviewed and interpreted by myself the emergency room physician. - Medically cleared. - EKG shows no ischemic changes. - Blood alcohol level is negative, -Tylenol and salicylate levels are negative. - Drug screen is positive for marijuana - No signs of infection, urinalysis clear and white count is not elevated - No anemia. - BUN and creatinine are within normal limits. Consultation: I spoke with Dr. Santos who is on-call for psychiatry who agrees to admission. Assessment and plan: Depression Suicidal ideation Medical noncompliance -Admission to neuropsychiatric unit for continued evaluation and treatment. - All lab work was reviewed and interpreted personally by myself, the ER physician - Evaluation and treatment of this problem were appropriate in the emergency setting Lab Data 02/03/25 12:39 02/03/25 12:39 Laboratory Results WBC 5.66 10^3/uL (3.29-11.43) 02/03/25 12:39 RBC 4.35 10^6/uL (3.85-5.65) 02/03/25 12:39 Hgb 13.20 g/dL (11.27-16.99) 02/03/25 12:39 Hct 39.1 % (36-47) 02/03/25 12:39 MCV 89.9 fl (85-98) 02/03/25 12:39 MCH 30.3 pg (27-33) 02/03/25 12:39 MCHC 33.8 g/dL (30-55) 02/03/25 12:39 RDW 12.4 % (12.1-15.1) 02/03/25 12:39 Plt Count 226 10^3/cmm (157-399) 02/03/25 12:39 MPV 9.2 fL (7.4-10.4) 02/03/25 12:39 Neut % (Auto) 61.0 % 02/03/25 12:39 Lymph % (Auto) 30.2 % 02/03/25 12:39 [place] % (Auto) 6.5 % 02/03/25 12:39 Eos % (Auto) 1.2 % 02/03/25 12:39 Baso % (Auto) 0.9 % 02/03/25 12:39 Neut # (Auto) 3.45 10^3/uL (1.8-7.7) 02/03/25 12:39 Lymph # (Auto) 1.7 10^3/uL (0.8-4.8) 02/03/25 12:39 [place] # (Auto) 0.4 10^3/uL (0.2-0.9) 02/03/25 12:39 Eos # (Auto) 0.1 10^3/uL (0.0-0.8) 02/03/25 12:39 Baso # (Auto) 0.1 10^3/uL (0.0-0.1) 02/03/25 12:39 Nucleated RBC % (auto) 0 % 02/03/25 12:39 Nucleated RBCs # 0.0 /100WBC 02/03/25 12:39 Sodium 141 mmol/L (136-145) 02/03/25 12:39 Potassium 3.4 mmol/L (3.5-5.1) L 02/03/25 12:39 Chloride 107 mmol/L (98-107) 02/03/25 12:39 Carbon Dioxide 22 mmol/L (22-29) 02/03/25 12:39 Anion Gap 15.4 (5-19) 02/03/25 12:39 BUN 8 mg/dL (6-20) 02/03/25 12:39 Creatinine 0.6 mg/dL (0.5-0.9) 02/03/25 12:39 GFR Calculation 118.2 mL/min (90-130) 02/03/25 12:39 Glucose 85 mg/dL (65-115) 02/03/25 12:39 Calculated Osmolality 290 mOsm/kg (285-295) 02/03/25 12:39 Calcium 8.6 mg/dL (8.5-10.5) 02/03/25 12:39 Total Bilirubin 0.6 mg/dL (0.15-1.2) 02/03/25 12:39 AST 12 U/L (0-32) 02/03/25 12:39 ALT 9 U/L (0-33) 02/03/25 12:39 Alkaline Phosphatase 49 U/L (35-105) 02/03/25 12:39 Total Protein 6.6 g/dL (6.6-8.7) 02/03/25 12:39 Albumin 4.3 g/dL (3.5-5.2) 02/03/25 12:39 Globulin 2.3 g/dL (1.3-4.6) 02/03/25 12:39 TSH 0.28 uIU/mL (0.27-4.20) 02/03/25 12:39 HCG, Qual Negative (Negative) 02/03/25 12:27 Urine Color Yellow (Yellow) 02/03/25 12:27 Urine Appearance Clear (CLEAR) 02/03/25 12:27 Urine pH 7.0 (5-7) 02/03/25 12:27 Ur Specific [place] 1.002 (1.005-1.030) L 02/03/25 12:27 Urine Protein Negative (Negative) 02/03/25 12:27 Urine Glucose (UA) Negative (Normal) 02/03/25 12:27 Urine Ketones Negative (Negative) 02/03/25 12: Urine Blood Negative (Negative) 02/03/25 12:27 Urine Nitrate Negative (Negative) 02/03/25 12:27 Urine Bilirubin Negative (Negative) 02/03/25 12:27 Urine Urobilinogen 0.2 mg/dL (Negative) 02/03/25 12:27 Ur Leukocyte Esterase Negative (Negative) 02/03/25 12:27 Urine RBC 0-2 /hpf (0-2) 02/03/25 12:27 Urine WBC 0-5 /hpf (0-5) 02/03/25 12:27 Ur Squamous Epith Cells 0-5 /hpf (0-5) 02/03/25 12:27 Amorphous Sediment Not Reportable 02/03/25 12:27 Urine Bacteria None seen /hpf (NONE) 02/03/25 12:27 Hyaline Casts 0.40 /lpf 02/03/25 12:27 Salicylates < 0.3 mg/dL (3-10) L 02/03/25 12:39 Urine Opiates Screen Negative ng/mL (Negative) 02/03/25 12:27 Acetaminophen < 5.0 ug/mL (10-30) L 02/03/25 12:39 Ur Barbiturates Screen Negative ng/mL (Negative) 02/03/25 12:27 Ur Phencyclidine Scrn Negative ng/mL (Negative) 02/03/25 12:27 Ur Amphetamines Screen Negative ng/mL (Negative) 02/03/25 12:27 U Benzodiazepines Scrn Negative ng/mL (Negative) 02/03/25 12:27 Urine Cocaine Screen Negative ng/mL (Negative) 02/03/25 12:27 U Marijuana (THC) Screen Positive ng/mL (Negative) H 02/03/25 12:27 Ethyl Alcohol < 10 mg/dL (0-10) 02/03/25 12:39 No radiology studies performed this visit Discharge Plan Discharge Patient Disposition: Admitted As Inpatient Clinical Impression: Suicidal ideation, Depression, Medical non-compliance Condition: Stable Discharge Diet: Usual diet Coding Level of Care Code ED Straw Hat Machine Operator for Karie Corbin
[2025-02-03 12:43] LABS: Glucose Urine UA Negative (Normal); Nitrate Urine Negative (Negative); Specific Gravity, Urine 1.002 (1.005-1.030)
[2025-02-03 12:44] LABS: HCG Qualitative Urine. Negative (Negative)
[2025-02-03 12:46] LABS: Add Urine Microscopic? YES
[2025-02-03 12:52] LABS: Hematocrit 39.1 % (36-47); Hemoglobin 13.20 g/dL (11.27-16.99); Mean Corpuscular HGB Conc 33.8 g/dL (30-55); Mean Corpuscular Hemoglobin 30.3 pg (27-33); Mean Corpuscular Volume 89.9 fl (85-98); Nucleated Red Blood Cells % 0 %; Platelet Count 226 10^3/cmm (157-399); Red Blood Count 4.35 10^6/uL (3.85-5.65); White Blood Count 5.66 10^3/uL (3.29-11.43)
[2025-02-03 13:27] LABS: Alanine Aminotransferase 9 U/L (0-33); Albumin Level 4.3 g/dL (3.5-5.2); Alkaline Phosphatase 49 U/L (35-105); Anion Gap 15.4 (5-19); Aspartate Amino Transferase 12 U/L (0-32); Blood Urea Nitrogen 8 mg/dL (6-20); Calcium 8.6 mg/dL (8.5-10.5); Carbon Dioxide 22 mmol/L (22-29); Chloride 107 mmol/L (98-107); Creatinine Clr Calc Pharmacy 119.0636; Globulin 2.3 g/dL (1.3-4.6); Glucose 85 mg/dL (65-115); Osmolality Calculated 290 mOsm/kg (285-295); Potassium 3.4 mmol/L (3.5-5.1); Sodium 141 mmol/L (136-145); Thyroid Stimulating Hormone 0.28 uIU/mL (0.27-4.20); Total Protein 6.6 g/dL (6.6-8.7)
[2025-02-03 13:29] LABS: Acetaminophen < 5.0 ug/mL (10-30); Alcohol Level < 10 mg/dL (0-10); Salicylate < 0.3 mg/dL (3-10)
[2025-02-03 13:39] LABS: PCP Screen Urine Negative (Negative)
--- NOTE | 2025-02-03 13:46 | PC.PHAR ---
Pt states she had an EKG 2 weeks ago and pcp thinks her medications contribute to her heart issues so she stopped all meds.
--- NOTE | 2025-02-03 15:04 | PC.NURSE ---
Involuntary 96 hour hold rights read and reviewed with patient. Patient verbalized understandings. Copy of rights was given to patient.
[2025-02-03 17:18] VITALS: BP 137/78; PULSE 74; RESP 16; TEMP 36.9; O2SAT 98
[2025-02-03 20:16] VITALS: BP 103/60; PULSE 65; RESP 16; TEMP 36.7; O2SAT 100
[2025-02-04 06:00] VITALS: BP 98/60; PULSE 54; RESP 16; O2SAT 97
--- OUTSIDE RECORDS SUMMARY | 2025-02-04 06:00 | XMS_ITS | Clinical Summary ---
Author Organization [facility] Address [address] Attn: Epic Prelude ADT THADDEUS THOMPSON [id number] Care Team Providers Care Motion Study Analyst Name Role Phone Charles Molina MD Primary Care Provider Allergies Active Allergy Reactions Criticality Noted Date [...] drink = 0.6 oz pur e alcohol) Comments No Sex and Gender Information Value Date Recorded Sex Assigned at Not on file Legal Sex Female 5:32 AM PLASTER MIXER Gender Identity Not on file Sexual Orientation Not on file Last Filed Vital Signs Vital Sign Reading Time Taken Comments Blood Pressure 102/62 08/21/2024 3:00 PM PLASTER MIXER Pulse 68 08/21/2024 3:00 PM PLASTER MIXER Temperature 36.9 C (98.4 F) 08/21/2024 12:06 PM PLASTER MIXER Respiratory Rate 19 08/21/2024 11:57 AM PLASTER MIXER Oxygen Saturation 98% 08/21/2024 3:00 PM PLASTER MIXER Inhaled Oxygen Concentration - - Weight 72.3 kg (159 lb 6.4 oz) 08/21/2024 11:57 AM PLASTER MIXER Height 152.4 cm (5') 08/21/2024 11:57 AM PLASTER MIXER Body Mass Index 31.13 08/21/2024 11:57 AM PLASTER MIXER Plan of Treatment Health Maintenance Due Date Last Done Comments HPV/Cotest (-) 10/26/2016 CERVICAL CANCER SCREENING 03/26/2021 PAP SMEAR 03/26/2021 03/26/2018 INFLUENZA VACCINE (#1) 2025 05/14/2019 DTAP/TDAP/TD VACCINES (7 - Td or Tdap) 11/09/2025 11/10/2015, 02/18/2001, 06/10/1997, Additional history exists HEPATITIS B VACCINES Completed 08/19/1996, 03/18/1996, 01/14/1996 HPV VACCINES Aged Out No longer eligi ble based on patient's age to complete this topic Insurance [facility] MEDICAID Care Teams Motion Study Analyst Relationship Specialty Start Date End Date Charles Molina MD [address] [place] [id number] PCP - General Family Practice 03/29/22
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
[2025-02-04 14:00] VITALS: BP 92/64; PULSE 60; RESP 15; TEMP 36.3; O2SAT 98
[2025-02-04 20:18] VITALS: BP 94/52; PULSE 71; RESP 16; TEMP 36.7; O2SAT 98
[2025-02-05 06:00] VITALS: BP 79/48; PULSE 82; RESP 16; TEMP 36.7; O2SAT 97
[2025-02-05 06:15] VITALS: BP 90/45
--- NOTE | 2025-02-05 11:36 | PC.NURSE ---
Dr. Santos gave verbal order for Remeron 15mg PO Q HS.
[2025-02-05 14:00] VITALS: BP 90/60; PULSE 70; RESP 16; TEMP 36.5; O2SAT 100
--- NOTE | 2025-02-05 14:12 | W.PM.NPUPNS ---
Subjective NPU Subjective: Patient presented today reporting that things are going fine. She is agreeable to starting the Remeron tonight after discussion of the risks, benefits and alternatives she understood and agreed to proceed as is documented in this note. She reports being worried about missing too much work and we discussed a plan for discharge by Saturday but that we would take it a day at a time. Mental Status Exam MSE Comments: This is an overweight versus obese white trans male in hospital scrubs with adequate grooming and eye contact. No abnormal movements except for mild psychomotor retardation. Cooperative exam in mild distress. Speech was decreased rate and volume. Mood described as depressed and anxious, affect congruent. Thought process organized. Thought content: Patient denied suicidal or homicidal ideation, she did endorse paranoia and seemed slightly guarded, she endorsed occasionally feeling like she was seeing things but relates that to her PTSD. Attention and concentration were intact and memory was reliable but none were formally tested. She is alert and oriented x3. Insight and judgment are fair impulse control is limited. Vitals/I&O/Wt Last Vital Signs Temp 98.0 F 02/05/25 06:00 Pulse 82 02/05/25 06:00 Resp 16 02/05/25 06:00 BP 90/45 02/05/25 06:15 Pulse Ox 97 02/05/25 06:00 O2 Del Method Room Air 02/04/25 20:18 Data NPU 02/03/25 12:39 02/03/25 12:39 A&P Assessment and plan 1. Schizoaffective disorder, depressive type: 2. Suicidal ideation: 3. Chronic post-traumatic stress disorder: 4. Generalized anxiety disorder: 5. Panic disorder without agoraphobia: Plan: Patient is a 29-year-old white female admitted with worsening depression and suicidal ideation with a history of PTSD and schizoaffective disorder depressed type. She presents after a significant period of disconnect from services reporting that she has come to except she endorses a clear need for inpatient services. And to be back on medication. 1.? ? Engage? patient in individual ,milieu, and group therapy ?2. ? We will attempt to gather collateral information from previous providers ?3. ? TO-15 minute checks on the unit. 4. Start Remeron 15 mg p.o. nightly. And then consider a mood stabilizer if she is tolerating the Remeron. PDMP PDMP Reviewed: Not Reviewed Involuntary Hold Information Hold Status: Legal Status: 96 Hour Hold Date/Time Hold Expires: 02/09/25 @14:26 96 Hour Hold: 96 Hour Involuntary Admission: No Attestations NPU Medical Necessity Statement*: Inpatient hospitalization is medically necessary and the clinically appropriate intervention at this time. We will monitor medications and make changes as indicated. Likely length of stay 2-4 days. Coding Level of Care Code Acute Code for [facility] Fwd Diagnoses Schizoaffective disorder, depressive type F25.1 Suicidal ideation R45.851 Chronic post-traumatic stress disorder F43.12 Generalized anxiety disorder F41.1 Panic disorder without agoraphobia F41.0
[2025-02-05 20:29] VITALS: BP 94/54; PULSE 74; RESP 17; TEMP 36.6; O2SAT 99
[2025-02-06 06:00] VITALS: BP 96/65; PULSE 92; RESP 17; TEMP 36.7; O2SAT 99
[2025-02-06 14:00] VITALS: BP 98/67; PULSE 73; RESP 16; TEMP 36.6; O2SAT 99
[2025-02-06 17:02] VITALS: BP 98/67; PULSE 73; RESP 16; TEMP 36.6; O2SAT 99
== END 2025-02-06 17:39 | disposition home or self-care (01) | DRG 885 ==
LOC: ER 12:39 → NP 02-04 05:57
PROVIDERS: Admitting Provider Psychiatry & Neurology Psychiatry; Emergency Provider Emergency Medicine; PCP Family Medicine; Visit Provider Psychiatry & Neurology Psychiatry
DX: F20.0 Paranoid schizophrenia (principal); R45.851 Suicidal ideations; E66.9 Obesity, unspecified; Z68.29 Body mass index [BMI] 29.0-29.9, adult; F43.12 Post-traumatic stress disorder, chronic; F41.1 Generalized anxiety disorder; F41.0 Panic disorder [episodic paroxysmal anxiety]; Z91.128 Patient's intentional underdosing of medication regimen for other reason; J45.20 Mild intermittent asthma, uncomplicated; F17.210 Nicotine dependence, cigarettes, uncomplicated
CPT/HCPCS: 36415; 80053; 80306; 80307; 81001; 81025; 84443; 85025; 93005; 97150; 97165; 99285; J9999

== ENCOUNTER 2025-02-12 06:31 | Outpatient (CLI) | payer BC, MEDICAID, SELFPAY ==
--- NOTE | 2025-02-12 06:30 | USCV_ITS ---
Kayla Rowley Age: 29 Gender: F : 1995 Exam Date: 02/12/2025 06:52 Ordering Phys: Charles Molina MD Technologist: Daniel Taveras Exam Location: [facility] [place] Indication: syncope BP: 134 / 86 HR: 78 Rhythm: Sinus Technical Quality: Adequate MEASUREMENTS (Male / Female) Normal Values 2D ECHO LV Diastolic Diameter PLAX 4.5 cm 4.2 - 5.9 / 3.9 - 5.3 cm IVS Diastolic Thickness 1.1 cm 0.6 - 1.0 / 0.6 - 0.9 cm IVS Systolic Thickness 1.1 cm LVPW Diastolic Thickness 1.2 cm 0.6 - 1.0 / 0.6 - 0.9 cm LVPW Systolic Thickness 1.5 cm LVOT Diameter 2.0 cm LV Ejection Fraction 2D Teich 57.5 % LV Ejection Fraction MOD 4C 62.0 % LV Ejection Fraction MOD 2C 60.6 % LV Ejection Fraction 2C AL 61.8 % LA Diameter 3.1 cm RA Systolic Volume 4C AL 25.0 ml RA Systolic Volume 4C MOD 25.4 ml LA Sys Volume AL 37.3 cm cubed LA Sys Volume Index AL 21.4 cm cubed/m squared Aorta at Sinotubular Diameter 2.3 cm IVC Diameter 1.6 cm M-MODE LA Ao Ratio MM 1.3 AV Cusp Separation MM 2.0 cm DOPPLER AV Peak Velocity 128.0 cm/s LVOT Peak Velocity 117.0 cm/s AV Area Cont Eq vti 2.8 cm squared AV Area Cont Eq pk 3.0 cm squared MV Peak Velocity 111.0 cm/s MV Area PHT 4.5 cm squared Mitral E to A Ratio 1.1 TV Peak Velocity 239.0 cm/s TR Peak Velocity 287.0 cm/s TR Peak Gradient 32.9 mmHg TR Mean Velocity 224.0 cm/s TR Mean Gradient 21.9 mmHg TR Velocity Time Integral 71.8 cm PV Peak Velocity 99.7 cm/s RV Ejection Time 0.4 s FINDINGS Left Ventricle Normal left ventricular size, systolic function and wall thickness, with no regional wall motion abnormalities. EF 60%. Normal diastolic filling pattern. Right Ventricle The right ventricle is normal in size and function. Right Atrium The right atrium is normal in size. Left Atrium The left atrium is normal in size. Mitral Valve Structurally and functionally normal mitral valve. Aortic Valve Normal aortic valve structure and function. Tricuspid Valve Trace tricuspid valve regurgitation. Normal tricuspid valve structure. Normal pulmonary artery systolic pressure is normal. Pulmonic Valve Structurally normal pulmonic valve with no stenosis. Mild pulmonic valve regurgitation. Pericardium Normal pericardium without effusion. Aorta Normal aortic root dimension and ascending aorta dimension. IVC The inferior vena cava appears normal. CONCLUSIONS 1. Normal left ventricular and right ventricular size and systolic function, left ventricular EF 60% 2. No significant valvular abnormality. Reggie Sosa (Electronically Signed) Final Date: 12 February 2025 14:56 S
== END 2025-02-12 06:32 | disposition home or self-care (01) ==
LOC: RAD 06:31
PROVIDERS: PCP Family Medicine; Visit Provider Family Medicine
DX: R55 Syncope and collapse (principal); I37.1 Nonrheumatic pulmonary valve insufficiency
CPT/HCPCS: 93306

== ENCOUNTER → 2025-04-19 15:04 | Outpatient (BNVA) | payer BC, SELFPAY | PROVIDERS: PCP Family Medicine; Visit Provider Family Medicine | DX: Z20.9 Contact with and (suspected) exposure to unspecified communicable disease (principal) | CPT/HCPCS: 87086; 87491; 87591; 87661 ==

== ENCOUNTER 2025-07-13 05:34 | Emergency (ER) | payer BC, MEDICAID, SELFPAY ==
--- OUTSIDE RECORDS SUMMARY | 2025-07-13 05:39 | XMS_ITS | Data Portability ---
Author Organization [facility] Address [address] [facility] [address] [place] [address] Care Team Providers Care Aircraft Systems Technician Name Role Phone LENI ALEXANDER Primary Care Provider [phone] Assessment No assessment recorded. Plan of Treatment Reminders Order Date Submit Date Provider Last Modified By Organization Details Last Modified Time Details Appointments None recorded. Lab rapid flu (A+B), PCR 2024 025 [email or web address] 47 [facility] ([facility]), [address] [place], [address], 5 22:08:15 rapid strep group A, throat [address] ([facility]), [address] [place], [address], 4 12:14:54 Referral None recorded. Procedures None recorded. Surgeries None recorded. Imaging None recorded. Medication Orders amoxicillin 875 mg tablet 2023 025 GARY [facility], [address], [place], [address], 5 16:35:32 Ciprodex 0.3 %-0.1 % ear drops,suspe nsion 2023 024 [email or web address] [facility], [address], [place], [address], 4 09:46:39 cephalexin 500 mg capsule 2022 024 GARY [facility], [address], [place], [address], 4 15:54:51 Patient TargetsNo targets recorded. Patient InstructionsNo instructions recorded. Reason for Referral None Reported. Results Created Date Observation Date Name Description Value Unit Range Abnormal Flag Note LastModifiedBy Organization Detail LastModifiedTime 01/11/20 24 01/11/2024 rapid strep group A, throa t Strep positi ve Not Available [facility] ([facility]) [address] [place] [address], [address], 01/11/2024 09:49:52 08/31/19 25 08/31/2024 rapid flu (A+B) , PCR Influenza A positi ve Not Available [facility] ([facility]) [address] [place], [address], 08/31/2024 12:51:01 08/31/19 25 08/31/2024 rapid flu (A+B) , PCR Influenza B negati ve Not Available [facility] ([facility]) [address] [place], [address], 08/31/2024 12:51:01 Result Notes None recorded. Problems Name Problem SNOMED Code Status Onset Date Resolution Date Notes Provider Name and Address Organization Details Recorded Time Irritable bowel syndrome 07636048 Active 2020 IRRITABLE BOWEL SYNDROME; 08/08/2020 10:57AM by Roberto Carlos Cardoza, Office Visit; Promoted; acuity set as *; TERE webster [facility] 5 12:18:32 Exercise-i nduced asthma 34522323 Active 2020 EXERTIONAL ASTHMA; 08/08/2020 10:57AM by Roberto Carlos Cardoza, Office Visit; Promoted; acuity set as *; TERE [facility] 5 12:18:17 Problem Notes None recorded. Procedures Surgical History Date Name Laterality Status Provider Name and Address Organization Details Recorded Time excision of lesion of ovary completed TERE VELA [facility], [facility] 12/15/2024 12:22:09 Imaging Results None recorded. Procedure Notes None recorded. Medical Equipment None Reported. Allergies Allergen ID Allergen Name Allergen Category Reaction Reaction Severity Criticality Documentation Date Start Date Code Code System Note Provider Name and Address Organization Details Recorded Time 326 loratadin e medicatio n Not available Not available Not available 12/06/2022 53937 RxNorm [facility] 3 14:35:46 Medications Name Sig [...] mass index (BMI) Body weight Oxygen saturation Heart rate Body temperature Systolic And Diastolic Provider Name and Address Organization Details Last Updated DateTime 5 152.4 cm 31.7 kg/m2 34319.3 6 g 99 % 114 /min 99.5 [degF] 124/78 mm[Hg] Lesly Locke [facility] 5 12:50:50 Date Recorded Body height Body mass index (BMI) Body weight Oxygen saturation Heart rate Respiratory rate Body temperature Systolic And Diastolic Provider Name and Address Organization Details Last Updated DateTime 4 152.4 cm 32.7 kg/m2 60943.3 3 g 98 % 84 /min 18 /min 97.1 [degF] 130/80 mm[Hg] Charmaine Slade [facility] 4 13:23:37 Date Recorded Body height Body mass index (BMI) Body weight Body temperature Oxygen saturation Heart rate Systolic And Diastolic Provider Name and Address Organization Details Last Updated DateTime 5 152.4 cm 30.1 kg/m2 33532.2 2 g 98.1 [degF] 99 % 81 /min 115/80 mm[Hg] TERE TEJADAH DANE [facility] 5 12:15:35 Date Recorded Body height Body mass index (BMI) Body weight Oxygen saturation Heart rate Respiratory rate Body temperature Systolic And Diastolic Provider Name and Address Organization Details Last Updated DateTime 4 152.4 cm 32.6 kg/m2 31030.6 3 g 99 % 122 /min 16 /min 98.2 [degF] 122/58 mm[Hg] Charmaineyadi Slade [facility] 4 09:45:52 Date Recorded Body height Body mass index (BMI) Body weight Oxygen saturation Heart rate Respiratory rate Body temperature Systolic And Diastolic Provider Name and Address Organization Details Last Updated DateTime 3 152.4 cm 32.2 kg/m2 94244.7 4 g 99 % 76 /min 20 /min 97.3 [degF] 110/62 mm[Hg] ANGEL MAHARAJ [facility] 3 14:01:12 Social History Question Answer Notes LastModified by Organizat ion Details LastModified Time Tobacco Smoking Status Former Smoker Charmaine Slade darin [facility] 01/11/2024 09:48:15 When Did You Quit Smoking? 1-5yearssinc elastcigaret te [email or web address] Information not available 12/15/2024 Sex: Unknown Functional Status None recorded. Mental Status None recorded. Family History Relationship Description Onset Age of this Age Resolved Age Notes LastModified by Organization Details LastModified Time Mother Malignant neoplasm of thyroid gland 62 [email or web address] Not available 11/20 12:20:51 Maternal Grandmother Malignant neoplasm of colon [email or web address] Not available 11/20 12:21:05 Medical History Condition Response Coronary Artery Disease N Other N Gout N Kidney Stones N Blood Diseases N Hyperthyroidism N Breast Cancer N Blood Transfusion N Depression N Hypothyroidism N Lung Disease N COPD N Defects or Inherited Disease N Developmental or Behavioral Disorders N Breast Problem N Difficulty Swallowing N Anesthesia Complications N Meniere's disease N Anxiety Disorder N Muscle, Joint, or Bone Problems N Vision or Eye Problems N Arthritis N Polyps N Infertility N Cancer N Varicosities N Stroke N Endometriosis N Bladder or Kidney Problems [...] Address Organization Details Recorded Time Tdap 11/10/2015 gustabo webster [facility] 05/17/2023 14:01:34 IPV 02/18/2001 completed TAMATHA GREEN null, [facility] 05/17/2023 14:01:34 MMR 02/18/2001 completed TAMATHA GREEN null, [facility] 05/17/2023 14:01:34 MMR 03/16/1997 completed TAMATHA GREEN null, [facility] 05/17/2023 14:01:34 Hep B, unspecified formulation 08/19/1996 completed TAMATHA GREEN null, [facility] 05/17/2023 14:01:34 Hep B, unspecified formulation 01/14/1996 completed TAMATHA GREEN null, [facility] 05/17/2023 14:01:34 Hep B, unspecified formulation 03/18/1996 completed TAMATHA GREEN null, [facility] 05/17/2023 14:01:34 OPV, trivalent 01/14/1996 completed TAMATHA GR EEN null, [facility] 05/17/2023 14:01:34 OPV, trivalent 03/18/1996 completed TAMATHA GR EEN null, [facility] 05/17/2023 14:01:34 OPV, trivalent 06/10/1997 completed TAMATHA GR EEN null, [facility] 05/17/2023 14:01:34 Hib ([facility]) 01/14/1996 completed TAMATHA GREEN null, [facility] 05/17/2023 14:01:34 Hib ([facility]) 03/16/1997 completed TAMATHA GREEN null, [facility] 05/17/2023 14:01:34 Hib ([facility]) 03/18/1996 completed TAMATHA GREEN null, [facility] 05/17/2023 14:01:34 Hib (HbO) 05/20/1996 completed ANGEL webster [facility], Guillermo.CAlma 05/17/2023 14:01:34 DTaP 01/14/1996 completed RADAMESA CAROL ANN webster [facility], Neftaly.Neftaly.C. 05/17/2023 14:01:34 DTaP 02/18/2001 completed FIFIATHFranco webster [facility], [facility].CAlma 05/17/2023 14:01:34 DTaP 03/18/1996 completed FIFIATHA GREEN darin [facility], [place].CAlma 05/17/2023 14:01:34 DTaP 05/20/1996 completed ANGEL webster [facility], [place].CAlma 05/17/2023 14:01:34 DTaP 06/10/1997 completed ANGEL webster [facility], JenniferCAlma 05/17/2023 14:01:34 Past Encounters Encounter ID Performer Location Encounter Start Date Encounter Closed Date Diagnosis/Indication Diagnosis SNOMED-CT Code Diagnosis ICD10 Code Diagnosis IMO Codes Diagnosis Note [id number] KEYUR RAMIREZ [facility] ([facility]) [address] [place] [address] 12/06/2022 14:21:57 12/06/2022 15:52:40 Tuberculosis screening 919110905 Z11.1 [id number] KEYUR RAMIREZ [facility] ([facility]) [address] [place] [address] 01/16/2023 16:20:11 01/31/2023 12:04:35 Acute upper respiratory infection 56297697 J06.9 Start doxycyclin e and prednisone today. [...] go to ED. Patient verbalized understand ing. [id number] Lady Miller MD [facility] ([facility]) [address] [place] [phone] 05/17/2023 13:49:20 05/25/2023 11:08:27 Infected insect bite 911481184 L08.9 [id number] KEYUR RAMIREZ [facility] ([facility]) [address] [place] [phone] 10/07/2023 13:15:54 10/07/2023 16:04:58 Acute otitis externa 68512399 H60.501 Start Ciprodex today. Encouraged patient to avoid swimming and submerging head in water for the next 14 days. Can use heat compresses as needed for pain relief. If not improving in 7 days, should return for further evaluation . Patient verbalized understand ing. [id number] DANNY STEPHENS [facility] ([facility]) [address] [place] [phone] 01/11/2024 09:39:30 01/11/2024 10:39:21 Sore throat 565925965 J02.9 Streptococ nataly sore throat 59445981 J02.0 Push cold oral fluids including Popsicles. Alternate tylenol/mo lars for fever or discomfort .May use throat lozenges, chlorasept ic spray, or saltwater gargles.ta ke antibiotic as directedIf you develop worsening symptoms such as unable to swallow, persistant fever, or concerns arise then return for re-eval. [id number] Robert Rutledge DO [facility] ([facility]) [address] [place] [phone] 08/31/2024 12:18:20 08/31/2024 13:23:07 Fever 603090779 R50.9 Influenza caused by Influenza A virus 198578787 J09.X2 I counseled on + rapid flu test today as above. counseled on dx, treatment options, expectatio ns.rest, increase fluids, nsaids prn, daily vitamins. stay home until fever free for 24-48hrs with improved symptoms. Return to office with no improvemen t or any problems. Go to ER with severe worsening or severe problems. [id number] Lady Miller MD [facility] ([facility]) [address] [place] [address] 12/15/2024 11:34:20 12/17/2024 08:00:20 Nausea, vomiting and diarrhea 2393083 R11.2 R19.7 9035103 I reassured the patient that with her [...] Date Sequence Insurance Name Policy Number Policy Lagurere Covered Member ID Laguerre Member ID Guarantor Name 12/15/2024 1 [employer] [place] REPLAC[place] - HMO) [id number] Kayla Rowley [id number] Kayla Rowley Notes Date Note Type Note Provider Name and Address Organization Details Recorded Time 05/17/2023 text/html General Rash/Ski n LesionReported by PatientHPIFor quality, patient reportsitchy,painful (only when touched),red, andswollen. For context, patient reportsscratching. For location, patient reportsother: (buttock, right side). For severity, patient reportsmoderate. For duration, patient reportshas noted for <1 week. For onset/timing, patient reportsabrupt onset. For associated symptoms, patient reportsno fever,no cold symptoms,no nausea,no vomiting, andno diarrhea.ROS as noted in the HPI Lady Miller MD [address] [place] [address], [phone], [facility], [place] 05/19/2023 17:30:13 10/07/2023 text/html EaracheReported by PatientHPIFor associated symptoms, patient reportsnose/sinus problems,ringing in the ears,ears feel full, anditching (pruritus). For location, patient reportsright. For quality, patient reportsburning,aching ,throbbing, andsharp. For severity, patient reportscurrent pain /10.ROS as noted in the HPI Patient is a 27 year old female who presents to the walk in clinic today for right ear pain. Patient reports symptoms started today. Ear is painful to touch. Has had some drainage. No fevers. LEONARD KAPLAN, DANNY-Billie [address] [place], [phone], [facility] 10/07/2023 14:36:07 01/11/2024 text/html Sore ThroatRepor fatuma by PatientHPIFor associated symptoms, patient reportscoughbut reportsno fever,no nausea,no vomiting, andno headache. For location, patient reportsleft side.ROS as noted in the HPI walk in patientpatient is here today for a sore throat and cough that started 5 days ago. Has been taking otc allergy meds for her symptoms with no improvement. The left ear hurts a little. denies fever. DANNY STEPHENS [address] [place] [address], [phone], [facility] 01/11/2024 10:32:39 08/31/2024 text/html ROS as noted in the HPI walk inx 1 day cough, congestion, chills, body aches, HAno n/v/d. Robert Rutledge, [address] [place] [address], [phone], [facility] 08/31/2024 13:21:44 12/15/2024 text/html ROS as noted in the HPI teeny tiny bit worried about pregnancyShe had unprotected sex less than a week agoShe took a test this morning and it was negativepast couple days crampingwatery diarrheatook tums for vomiting.... She is keeping down clear fluids Lady Miller MD [address] [place] [address], [phone], [facility] [place] [facility], [place] 12/16/2024 16:04:18 OBGyn Episode No OBEpisode recorded.
--- OUTSIDE RECORDS SUMMARY | 2025-07-13 05:39 | XMS_ITS | Clinical Summary ---
Author Organization [facility] Address [address] [place]: Epic Prelude ADT THADDEUS THOMPSON [address] Care Team Providers Care Nanoelectronics Engineer Name Role Phone Charles Molina MD Primary Care Provider [phone] Allergies Active Allergy Reactions Criticality Noted Date Comments Mushroom Combination No.1 Swelling Low 10/15/2009 Medications No known medications Active Problems Problem Noted Date Diagnosed Date Slow transit constipation 08/21/2024 Uterine leiomyoma 08/21/2024 Acute midline low back pain 03/29/2022 Muscle spasm of back 03/29/2022 Scoliosis of thoracic spine 03/29/2022 Encounters Date Type Department Care Team Description 06/29/2025 External Device Data ST[facility] ABSTRACTION Provider, Abstract 06/22/2025 External Device Data [facility] ABSTRACTION Provider, Abstract 06/08/2025 External Device Data [facility] ABSTRACTION Provider, Abstract 05/25/2025 External Device Data ST[facility] ABSTRACTION Provider, Abstract 05/18/2025 External Device Data ST[facility] ABSTRACTION Provider, Abstract 05/04/2025 External Device Data STL ABSTRACTION Provider, Abstract 04/27/2025 External Device Data ST[facility] ABSTRACTION Provider, Abstract [...] on file Legal Sex Female 5:32 AM QUARRY EQUIPMENT OPERATOR Gender Identity Not on file Sexual Orientation Not on file Last Filed Vital Signs Vital Sign Reading Time Taken Comments Blood Pressure 102/62 08/21/2024 3:00 PM QUARRY EQUIPMENT OPERATOR Pulse 68 08/21/2024 3:00 PM QUARRY EQUIPMENT OPERATOR Temperature 36.9 C (98.4 F) 08/21/2024 12:06 PM QUARRY EQUIPMENT OPERATOR Respiratory Rate 19 08/21/2024 11:57 AM QUARRY EQUIPMENT OPERATOR Oxygen Saturation 98% 08/21/2024 3:00 PM QUARRY EQUIPMENT OPERATOR Inhaled Oxygen Concentration - - Weight 72.3 kg (159 lb 6.4 oz) 08/21/2024 11:57 AM QUARRY EQUIPMENT OPERATOR Height 152.4 cm (5') 08/21/2024 11:57 AM QUARRY EQUIPMENT OPERATOR Body Mass Index 31.13 08/21/2024 11:57 AM QUARRY EQUIPMENT OPERATOR Plan of Treatment Health Maintenance Due Date Last Done Comments HPV/Cotest (-) 10/26/2016 CERVICAL CANCER SCREENING 03/26/2021 PAP SMEAR 03/26/2021 03/26/2018 INFLUENZA VACCINE (#1) 2025 05/14/2019 DTAP/TDAP/TD VACCINES (7 - T d or Tdap) 11/09/2025 11/10/2015, 02/18/2001, 06/10/1997, Additional history exists HEPATITIS B VACCINES Completed 08/19/1996, 03/18/1996, 01/14/1996 HPV VACCINES (No Doses Required) Completed Insurance [facility] MEDICAID Care Teams Nanoelectronics Engineer Relationship Specialty Start Date End Date Charles Molina MD [address] [place] [id number] PCP - General Family Practice 03/29/22
--- OUTSIDE RECORDS SUMMARY | 2025-07-13 05:39 | XMS_ITS | Patient Health Record ---
Author Organization [facility] Address 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 GONORRHOEAE RNA , TMA, THROAT Reviewed date:05/02/2025 09:51:20 PM Interpretation: Performing Lab:[facility] Blanche-[id number] Alavrez Thompson, [id number] Quique Brown MD Notes/Report: 0 0 0 0 0 0 CHLAMYDIA TRACHOMATIS RNA, TMA, THROAT NOT DETECTED NOT DETECTED N NEISSERIA GONORRHOEAE RNA, TMA, THROAT NOT DETECTED NOT DETECTED N COMMENT The analytical performance characteristics of this assay have been determined by [facility]. The modifications have not been cleared or approved by the FDA. This assay has been validated pursuant to the CLIA regulations and is used for clinical purposes. CHLAMYDIA/N. GONORRHOEAE RNA , TMA Reviewed date:05/02/2025 10:05:33 PM Interpretation: Performing Lab:[facility] Blanche-[id number] Alvarez Thompson, [id number] Quique Brown MD Notes/Report: 0 CHLAMYDIA TRACHOMATIS RNA, TMA, UROGENITAL NOT DETECTED NOT DETECTED N NEISSERIA GONORRHOEAE RNA, TMA, UROGENITAL NOT DETECTED NOT DETECTED N COMMENT The analytical performance characteristics of this assay, when used to test SurePath(TM) specimens have been determined by [facility]. The modifications have not been cleared or approved by the FDA. This assay has been validated pursuant to the CLIA regulations and is used for clinical purposes. For additional information, please refer to https://education.[employer]/faq/FAE22 4 (This link is being provided for information/ educational purposes only.) RPR (MONITOR) W/REFL TITER Reviewed date:05/02/2025 09:51:20 PM Interpretation: Performing Lab:[facility] Blanche-[id number] Alvarez Thompson, [id number] Quique Brown MD Notes/Report: 0 0 0 0 0 0 RPR (MONITOR) W/REFL TITER NON-REACTIVE NON-REACTIVE N CBC (INCLUDES DIFF/PLT) (REF L) Reviewed date:05/02/2025 09:51:20 PM Interpretation: Performing Lab:[facility] Blanche-[id number] Alvarez Thompson, [id number] Quique Brown MD Notes/Report: 0 0 0 0 0 0 WHITE BLOOD CELL COUNT 8.5 3.8-10.8 Thousand/uL N RED BLOOD CELL COUNT 4.58 3.80-5.10 Million/uL N HEMOGLOBIN 14.3 11.7-15.5 g/dL N HEMATOCRIT 42.5 35.0-45.0 % N MCV 92.8 80.0-100.0 fL N MCH 31.2 27.0-33.0 pg N MCHC 33.6 32.0-36.0 g/dL N For adults, a slight decrease in the calculated MCHC value (in the range of 30 to 32 g/dL) is most likely not clinically significant; however, it should be interpreted with caution in correlation with other red cell parameters and the patient's clinical condition. RDW 12.0 11.0-15.0 % N PLATELET COUNT 274 140-400 Thousand/uL N MPV 9.5 7.5-12.5 fL N ABSOLUTE NEUTROPHILS 5627 9557-6869 cells/uL N ABSOLUTE LYMPHOCYTES 2057 850-3900 cells/uL N ABSOLUTE MONOCYTES 697 200-950 cells/uL N ABSOLUTE EOSINOPHILS 51 15-500 cells/uL N ABSOLUTE BASOPHILS 68 0-200 cells/uL N NEUTROPHILS 66.2 N LYMPHOCYTES 24.2 N MONOCYTES 8.2 N EOSINOPHILS 0.6 N BASOPHILS 0.8 N COMPREHENSIVE METABOLIC PANE L Reviewed date:05/02/2025 09:51:20 PM Interpretation: Performing Lab:[facility]-[id number] Alvarez Thompson, [id number] Quique Brown MD Notes/Report: 0 0 0 0 0 0 GLUCOSE 79 65-99 mg/dL N Fasting reference interval UREA NITROGEN (BUN) 17 7-25 mg/dL N CREATININE 0.71 0.50-0.96 mg/dL N EGFR 118 > OR = 60 mL/min/1.73m2 N BUN/CREATININE RATIO SEE NOTE: 6-22 (calc) Not Reported: BUN and Creatinine are within reference range. SODIUM 138 135-146 mmol/L N POTASSIUM 4.0 3.5-5.3 mmol/L N CHLORIDE 106 98-110 mmol/L N CARBON DIOXIDE 24 20-32 mmol/L N CALCIUM 9.2 8.6-10.2 mg/dL N PROTEIN, TOTAL 7.4 6.1-8.1 g/dL N ALBUMIN 4.8 3.6-5.1 g/dL N GLOBULIN 2.6 1.9-3.7 g/dL (calc) N ALBUMIN/GLOBULIN RATIO 1.8 1.0-2.5 (calc) N BILIRUBIN, TOTAL 0.8 0.2-1.2 mg/dL N ALKALINE PHOSPHATASE 49 31-125 U/L N AST 17 10-30 U/L N ALT 18 6-29 U/L N HIV 1/2 ANTIGEN/ANTIBODY,FOU RTH GENERATION W/RFL Reviewed date:05/02/2025 09:51:20 PM Interpretation: Performing Lab:[facility] MAYERS-[id number] Alvarez Thmopson, [id number] Quique Brown MD Notes/Report: 0 0 0 0 0 0 HIV FINAL INTERPRETATION HIV NEGATIVE N HIV-1 antigen and HIV-1/HIV-2 antibodies were not detected. There is no laboratory evidence of HIV infection. HIV AG/AB, SCREEN NON-REACTIVE NON-REACTIVE N HIV-1 antigen and HIV-1/HIV-2 antibodies were not detected. There is no laboratory evidence of HIV infection. HEPATITIS PANEL, GENERAL Reviewed date:05/02/2025 09:51:20 PM Interpretation: Performing Lab:[facility]-[id number] Alvarez Thompson, [id number] Quique Brown MD Notes/Report: 0 0 0 0 0 0 HEPATITIS A AB, TOTAL NON-REACTIVE NON-REACTIVE N For additional information, please refer to http://[employer]/faq/PAW245 (This link is being provided for informational/ educational purposes only.) HEPATITIS B SURFACE ANTIBODY QL NON-REACTIVE NON-REACTIVE N HEPATITIS B SURFACE ANTIGEN NON-REACTIVE NON-REACTIVE N For additional information, please refer to http://[employer]/faq/ZUI437 (This link is being provided for informational/ educational purposes only.) HEPATITIS B CORE AB TOTAL NON-REACTIVE NON-REACTIVE N For additional information, please refer to http://[employer]/faq/RAI754 (This link is being provided for informational/ educational purposes only.) HEPATITIS C ANTIBODY NON-REACTIVE NON-REACTIVE N HCV antibody was non-reactive. There is no laboratory evidence of HCV infection. In most cases, no further action is required. However, if recent HCV exposure is suspected, a test for HCV RNA (test code 09667) is suggested. For additional information please refer to http://[employer]/faq/FAQ22v 1 (This link is being provided for informational/ educational purposes only.) Test, Urine Reviewed date:04/28/2025 05:39:10 PM Interpretation:Negative Performing Lab: Notes/Report: Negative Reason For Referral No Information Medications Medication SIG (Take, Route, Frequency, Duration) Notes Start Date End Date Status Needle (Disp) 25G X 5/8 Miscellaneous as directed; Duration: 28 days 04/28/2025 Active Sertraline HCl Activ e QUEtiapine Fumarate Active Needle (Disp) 18G X 1 Miscellaneous as directed; Duration: 28 days 04/28/2025 Active Testosterone Cypionate 200 MG/ML Solution 0.3 mL subcutaneous weekly; Duration: 35 days 04/28/2025 Active Testosterone 2 pumps gel Activ e Mirena (52 MG) 09/19/2024 09/19/2032 Act melvi Syringe (Disposable) 1 ML Miscellaneous as directed; Duration: 28 days 04/28/2025 Active Social History Tobacco Use: Social History Observation Description Date Details (start date - stop date) Current Smoker NA - NA Social History Social Determinants Social Info Question Answer Notes PRAPARE Date Completed/Updated: 04/28/2025 What is your current housing situation? I have h ousing Are you worried about losing your housing? No What is the highest level of school that you have finished? 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 Check all that apply I do not have problems meeting my needs Has lack of transportation k ept you from medical appointments, meetings, work or from getting things needed for daily living? Yes, it has kept me from medical appointments or from getting my medications,Yes, it has kept me from non-medical meetings, appointments, work, or getting things needed for daily living How often do you see or talk to people that you care about and feel close to? (For example: talking to friends on the phone, visiting friends or family, going to voodoo or club meetings) 1 or 2 times a week How stressed are you? Stress is when someone feels tense, nervous, anxious, or can't sleep at night because their mind is troubled Very much In the past year have you sp ent more than 2 nights in a row in a nursing home, fci, jail center, or juvenile correctional facility? No Are you a refugee? No What country are you from? [place] Do you feel physically and e motionally safe where you currently live? Yes In the past year, have you b een afraid of your partner or ex-partner? Yes PRAPARE Score: 8 Sexual History: Social Info Question Answer Notes Sexual History Had sex in the past 12 months (vaginal, oral, or anal)? Yes with Both Men and Women Use protection? No Have you ever had a Sexually transmitted disease ? Yes Chlamydia? Yes GC? No Syphilis? No Herpes? No Other? No Drugs/Alcohol: Social Info Question Answer Notes Drugs Have you used drugs other than those for medical reasons in the past 12 months? No Caffeine Intake: none Drug/Alcohol: Social Info Question Answer Notes AUDIT-C (Standard) Did you have a drink containing alcohol in the past year? No Points 0 Interpretation Negative DAST-10 (2020 Edition) 1. Have you used drugs other than those required for medical reasons? No 2. Do you abuse more than one drug at a time? No 3. Are you always able to stop using drugs when you want to? Yes 4. Have you had \ blackouts\ or \ flashbacks\ as a result of drug use? No 5. Do you ever feel bad or guilty about your ang g use? No 6. Does your spouse (or pare nts) ever complain about your involvement with drugs? No 7. Have you neglected your f amily because of your use of drugs? No 8. Have you engaged in Node Management activities in order to obtain drugs? No 9. Have you ever experienced withdrawal symptoms (felt sick) when you stopped taking drugs? No 10. Have you had medical pro blems as a result of your drug use (e.g., memory loss, hepatitis, convulsions, bleeding etc.)? No Results: 0 Interpretation of Score: No problems reported Tobacco Use: Social Info Question Answer Notes Tobacco Control (Standard) Tobacco use: Current smoker How soon after you wake up do you smoke your first cigarette? Within 5 minutes Are you interested in quitting? Not ready to quit Additional Findings: Tobacco user e-cigarette Tobacco use other than smoking: Are you an other tobac co user? No Additional Details Category Social Info Options Details Drugs/Alcohol: Do you smoke marijuana? Ad mits Do you drink alcohol? No Problems Problem Type SNOMED Code ICD Code Onset Dates Problem Status W/U Status Risk Notes Problem Manic bipolar I disorder in partial remission (32165713) Bipolar disorder, in partial remission, most recent episode manic (F31.73) 015 Active confirmed Problem Exposure to sexually transmissible disorder (176723666) Contact with and (suspected) exposure to infections with a predominantly sexual mode of transmission (Z20.2) 025 Active confirmed Problem Exposure to Human immunodeficiency virus (210976495) Contact with and (suspected) exposure to human immunodeficiency virus [HIV] (Z20.6) 025 Active confirmed Problem Body mass index 30+ - obesity (518420059) Body mass index [BMI] 30.0-30.9, adult (Z68.30) 025 Active confirmed Problem Endocrine disorder (661378147) Endocrine disorder (E34.9) 021 Active confirmed Problem Obese class I (finding) (274011001091201) Obesity, class 1 (E66.811) 025 Active confirmed Vital Signs Heart Rate 80 /min 04/28/2025 Temperature 98.3 degrees Fahrenheit 04/28/2025 Respiratory Rate 16 /min 04/28/2025 Oximetry 98 % 04/28/2025 Blood pressure diastolic 68 mm Hg 04/28/2025 Height 60 in 04/28/2025 Blood pressure systolic 105 mm Hg 04/28/2025 Weight 154 lbs 04/28/2025 BMI 30.07 kg/m2 04/28/2025 Encounters Encounter Location Date Provider Diagnosis [facility] [address] [place] [address] 04/28/2025 Mesfin Counts Endocrine disorder E 34.9 ; Bipolar disorder, in partial remission, most recent episode manic F31.73 ; Contact with and (suspected) exposure to human immunodeficiency virus [HIV] Z20.6 ; Contact with and (suspected) exposure to infections with a predominantly sexual mode of transmission Z20.2 ; Body mass index [BMI] 30.0-30.9, adult Z68.30 and Obesity, class 1 E66.811 [facility] [address] [place] [address] 04/28/2025 Mesfin Counts [facility] [address] [place] [address] 04/28/2025 Mesfin Counts Routine screening fo r STI (sexually transmitted infection) Z11.3 and Encounter for observation for other suspected diseases and conditions ruled out Z03.89 [facility] [address] [place] [address] 04/26/2025 Mesfin Counts Assessments Encounter Date Diagnosis (ICD Code) Assessment Notes Treatment Notes Treatment Clinical Notes Section Notes 04/28/2025 Bipolar disorder, in partial remission, most recent episode manic (ICD-10 - F31.73) - back on meds and stable - encourage to maintain compliance - maintain close care with PCP/psychiatry 04/28/2025 Endocrine disorder (ICD-10 - E34.9) - Out of T x 2 weeks - Restart T wth injectables - Start 0.3 mL weekly - will be using SQ method 04/28/2025 Routine screening for STI (sexually transmitted infection) (ICD-10 - Z11.3) 04/28/2025 Encounter for observation for other suspected diseases and conditions ruled out (ICD-10 - Z03.89) 04/28/2025 Contact with and (suspected) exposure to human immunodeficiency virus [HIV] (ICD-10 - Z20.6) - One event during yovanny while off meds - labs and UPT today - UPT NEG - NSA at this time outside of above mentioned event 04/28/2025 Contact with and (suspected) exposure to infections with a predominantly sexual mode of transmission (ICD-10 - Z20.2) - see above 04/28/2025 Body mass index [BMI] 30.0-30.9, adult (ICD-10 - Z68.30) - Use wrist pedometer. Get daily average and increase goal bythe next even 500 for 2 weeks (i.e. if daily avg is 211, set goal for next twoweeks to 2500 steps daily, and then 3000 daily for 2 weeks, then 3500 and soon). Goal of at least 10,000 steps daily. - Goal of 20 min aerobic exercise daily. Start where you are. If you arenot exercising, start with 5 min daily x 2 weeks, then increase by 2 to 5 min x2 weeks. Do this until getting at least 20 min daily average. - The benefits to healthy weight maintenance are seemingly never endingincluding reducing risks or levels of heart disease, cancer, heart attack,stroke, inflammation, diabetes, chronic pain, arthritis, autoimmune disease,low back pain, depression, liver disease and cirrhosis, kidney disease,gallstones, sleep apnea, infertility, cataracts, and asthma to name afew. - Exercise of at least 150 minutes per week helps in weight maintenance anddisease prevention and reduction. - Healthy and nutritious diet choices aid in healthy weightmaintenance and disease prevention and reduction. - Some choices include increased dietary fiber intake, increased proteinintake, reduced simple carbohydrate intake, increased water intake, decreasedsodium intake, increased whole foods intake, decrease junk food and fast foodintake, and increased fresh or steamed vegetables. - A good sleep schedule can help with healthy weight maintenance. - Intermittent fasting can be of benefit to healthy weight maintenance. - If you are interested in following specific diets , DASH andMediterranean are two of the best, most effective options. - Two great online options are Healthy Eating Plate from [employer].gov - BOOKS: Eat To Liveby Dr Marbin Muniz, [employer]: Repairing And Preparing Your Body ForSpontaneous Weight Loss 04/28/2025 Obesity, class 1 (ICD-10 - E66.811) 04/28/2025 Other - labs 2.5 mo - test, CMP, hmogram, PrEP labs - FU 3 mo Plan Of Treatment Next Appt Details Provider Name:Mesfin Frederick dwain, 07/13/2025 01:15:00 PM, [address], [place], [address], Provider Name:Mesfin prakash, 07/29/2025 01:30:00 PM, 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
[2025-07-13 05:44] VITALS: BP 109/77; PULSE 99; RESP 22; TEMP 36.4; O2SAT 100; BMI 27.3
[2025-07-13 05:50] VITALS: BP 109/77; PULSE 99; RESP 22; TEMP 36.4; O2SAT 100
--- NOTE | 2025-07-13 05:50 | ECG_ITS ---
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1995 Requested By: Jennifer Higginbotham Order Number: [id number] Baylee MD: ARVIND LÓPEZ Measurements Intervals [place] Rate: 92 P: 19 [place]: 158 QRS: -61 QRSD: 85 T: 46 QT: 358 QTc: 443 Interpretive Statements SINUS RHYTHM PATTERN CONSISTENT WITH PULMONARY DISEASE LEFT ANTERIOR FASCICULAR BLOCK [QRS AXIS <= -45, QR IN I, RS IN II] Compared to ECG 02/03/2025 12:18:29 Left anterior fascicular block now present Sinus arrhythmia no longer present Left-axis deviation no longer present Electronically Signed On 07-13-2025 11:53:41 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
--- NOTE | 2025-07-13 05:52 | XRR_ITS ---
PROCEDURE INFORMATION: Exam: XR Chest Exam date and time: 07/13/2025 6:21 AM Age: 29 years old Clinical indication: Shortness of breath; Additional info: SOB, elevated hr TECHNIQUE: Imaging protocol: Radiologic exam of the chest. Views: 1 view. COMPARISON: CR XR chest 1V portable [id number] 01/20/2025 9:14 AM FINDINGS: Lungs: There is a vague ground-glass opacity within the right middle lobe. The left lung is clear. Pleural spaces: Unremarkable. No pleural effusion. No pneumothorax. Heart/Mediastinum: Unremarkable. No cardiomegaly. Bones/joints: Unremarkable. XR/XR chest 1V portable [id number] IMPRESSION: Vague ground-glass opacity in the right middle lobe suggesting atelectasis or pneumonia.
--- NOTE | 2025-07-13 05:56 | W.ED.SOB ---
HPI - SOB/Dyspnea General: Chief Complaint: Shortness of Breath/Dyspnea Stated Complaint: cough,wheezing/NV Time Seen by Provider: 07/13/25 05:45 History of Present Illness: HPI Narrative: 29-year-old who presents emergency room with complaints of shortness of breath, chest pain, nausea and vomiting for a day. Says not feeling well for couple of days. Frequent cough. No abdominal pain. Has had some nausea and vomiting. Patient says she did have asthma as a child but has not had issues with it recently. She has been prescribed an inhaler in the past Related Data Home Medications ?Medication ?Instructions ?Recorded ?Confirmed aripiprazole 20 mg tablet (Abilify) 20 mg PO DAILY 06/28/25 06/28/25 Previous Rx's ?Medication ?Instructions ?Recorded albuterol sulfate 90 mcg/actuation 2 inh inhalation Q4H PRN shortness 09/03/24 aerosol inhaler of breath or wheezing #18 grams mirtazapine 15 mg tablet 15 mg PO BEDTIME 30 days #30 tabs 04/19/25 albuterol sulfate 90 mcg/actuation 2 inh inhalation Q4H PRN shortness 07/13/25 aerosol inhaler of breath or wheezing #6.7 grams azithromycin 250 mg tablet See Rx Instructions PO .COMPLEX #6 07/13/25 (Zithromax Z-Serge) tabs dexamethasone 6 mg tablet 6 mg PO DAILY 5 days #5 tabs 07/13/25 ondansetron 4 mg disintegrating 4 mg PO Q8H PRN nausea and 07/13/25 tablet vomiting #10 tabs Allergies Allergy/AdvReac Type Severity Reaction Status Date / Time loratadine (From Claritin) Allergy Severe ADR-Nose Verified 06/28/25 08:58 Bleed mushroom Allergy ALGY-Anaphy Verified 06/28/25 08:58 laxis Review of Systems Narrative: Constitutional symptoms: Negative except as documented in HPI. Skin symptoms: Negative except as documented in HPI. Eye symptoms: Negative except as documented in HPI. ENMT symptoms: Negative except as documented in HPI. Respiratory symptoms: Negative except as documented in HPI. Cardiovascular symptoms: Negative except as documented in HPI. Gastrointestinal symptoms: Negative except as documented in HPI. Genitourinary symptoms: Negative except as documented in HPI. Musculoskeletal symptoms: Negative except as documented in HPI. Neurologic symptoms: Negative except as documented in HPI. Psychiatric symptoms: Negative except as documented in HPI. Endocrine symptoms: Negative except as documented in HPI. PFSH ED PFSH: Medical History (Updated 07/13/25 @ 07:39 by Jennifer Celis MD) Nicotine dependence, cigarettes, uncomplicated Mild intermittent asthma Schizoaffective disorder, depressive type NSV (nonspecific vaginitis) Chronic post-traumatic stress disorder Generalized anxiety disorder Panic disorder without agoraphobia Surgical History H/O dilation and curettage History of ovarian cystectomy Left Family History Grandfather Diabetes paternal Family/Other Diabetes paternal uncle Mother Thyroid disease, Onset Age: 62 Thyroid cancer Grandmother Colon cancer maternal Other CAD (coronary artery disease) Cancer Denies family history of Ovarian cancer Clotting disorder Hyperlipidemia Breast cancer Bleeding disorder Hypertension Uterine cancer Stroke Social History Smoking and tobacco/nicotine status: current every day tobacco/nicotine user (vape ) Current gender identity: Trans [id number] Physical Exam Narrative: EXAM NARRATIVE: General: Alert, no acute distress. Skin: Warm, dry. Head: Normocephalic, atraumatic. Neck: Supple, trachea midline. Eye: Extraocular movements are intact. Ears, nose, mouth and throat: Oral mucosa moist. Cardiovascular: Regular, Normal peripheral perfusion. Respiratory: some expiratory wheeze, mild increased wob, breath sounds are equal, Symmetrical chest wall expansion. Gastrointestinal: Soft, Nontender, Non distended Musculoskeletal: Normal ROM, no deformity. Neurological: Alert and oriented, No focal neurological deficit observed. Psychiatric: Cooperative, appropriate mood & affect. Course Vital Signs: Vital signs: Vital Signs Temperature 97.6 F 07/13/25 05:50 Pulse Rate 105 H 07/13/25 08:02 Respiratory Rate 16 07/13/25 08:02 Blood Pressure 101/59 07/13/25 08:02 Pulse Oximetry 96 07/13/25 08:02 Oxygen Delivery Me thod Room Air 07/13/25 06:39 MDM - SOB/Dyspnea Medical Decision Making Medical decision making Patient's reason for coming to the emergency room: Short of breath, cough, vomiting Social determinants: Employed. Accompanied by life partner I reviewed the patient's medical record. Last seen in gynecology clinic for IUD surveillance. I reviewed the patient's current home meds Listed meds are aripiprazole and mirtazapine Alternate historians: None Differential diagnosis for patient with shortness of breath includes but is not limited to and based on the above HPI, review of systems and physical exam: Pneumonia. Bronchitis. Asthma or COPD with acute exacerbation. Acute coronary syndrome / IA. Pulmonary embolism. Anxiety. Congestive heart failure. Viral infections including influenza and Covid-19. Atrial fibrillation. Anxiety. Pleural effusion. Pneumothorax. Orders placed to evaluate differential diagnosis based on the above differential, HPI and physical exam Chest x-ray: Vague ground glass opacity in the right middle lobe possible atelectasis versus of pneumonia. This was reviewed and interpreted by myself the emergency room physician. I also reviewed the radiology report. Lab Review: Laboratory results were reviewed and interpreted by myself the emergency room physician. No flu COVID or RSV. Assessment of risk: Level of risk: Hospitalization considerations: Reexamination: Patient remained stable. No increased work of breathing. No altered mental status. No focal motor deficits. No oxygen requirement Assessment and plan: Upper respiratory infection Dehydration ?Home on azithromycin for possible pneumonia on x-ray. Steroids for possible viral illness. Nausea medication. - Discharged home - Discussed plan with patient. Answered any questions. - Evaluation and treatment of this problem were appropriate in the emergency setting. Lab Data Labs/Radiology: Radiology Impressions Chest X-Ray 07/13/25 05:52 IMPRESSION: Vague ground-glass opacity in the right middle lobe suggesting atelectasis or pneumonia. Laboratory Results Urine Color Yellow (Yellow) 07/13/25 06:32 Urine Appearance Clear (CLEAR) 07/13/25 06:32 Urine pH 5.0 (5-7) 07/13/25 06:32 Ur Specific Sherrill 1.026 (1.005-1.030) 07/13/25 06:32 Urine Protein Trace (Negative) A 07/13/25 06:32 Urine Glucose (UA) Negative (Normal) 07/13/25 06:32 Urine Ketones Negative (Negative) 07/13/25 06:32 Urine Blood Negative (Negative) 07/13/25 06:32 Urine Nitrate Negative (Negative) 07/13/25 06:32 Urine Bilirubin Negative (Negative) 07/13/25 06:32 Urine Urobilinogen 1.0 mg/dL (Negative) 07/13/25 06:32 Ur Leukocyte Esterase Negative (Negative) 07/13/25 06:32 Urine RBC 0-2 /hpf (0-2) 07/13/25 06:32 Urine WBC 0-5 /hpf (0-5) 07/13/25 06:32 Ur Squamous Epith Cells 0-5 /hpf (0-5) 07/13/25 06:32 Amorphous Sediment Not Reportable 07/13/25 06:32 Urine Bacteria Trace /hpf (NONE) 07/13/25 06:32 Hyaline Casts 3.71 /lpf 07/13/25 06:32 Influenza A (PCR) Negative (Negative) 07/13/25 06:01 Influenza Type B (PCR) Negative (Negative) 07/13/25 06:01 RSV (PCR) Negative (Negative) 07/13/25 06:01 SARS-CoV-2 (PCR) Negative (Negative) 07/13/25 06:01 All radiology interpretation(s) finalized by discharge Discharge Plan Discharge Patient Disposition: Home Clinical Impression: Upper respiratory infection, Dehydration Condition: Stable Prescriptions: New azithromycin [Zithromax Z-Serge] 250 mg tablet See Rx Instructions .ROUTE .COMPLEX Qty: 6 0RF Rx Instructions: For 250 mg dose pack: take 500 mg today (day 1), then 250 mg for 4 days (days 2-5) dexamethasone 6 mg tablet 6 mg PO DAILY 5 Days Qty: 5 0RF albuterol sulfate 90 mcg/actuation HFA aerosol inhaler 2 inh inhalation Q4H PRN (Reason: shortness of breath or wheezing) Qty: 6.7 0RF Rx Instructions: Please provide patient with a spacer ondansetron 4 mg tablet,disintegrating 4 mg PO Q8H PRN (Reason: nausea and vomiting) Qty: 10 0RF No Action aripiprazole [Abilify] 20 mg tablet 20 mg PO DAILY mirtazapine 15 mg tablet 15 mg PO BEDTIME 30 Days Qty: 30 1RF albuterol sulfate 90 mcg/actuation HFA aerosol inhaler 2 inh INHALATION Q4H PRN (Reason: shortness of breath or wheezing) Qty: 18 0RF Discharge Orders: Discharge ED (Routine); Ordered 07/13/25 Ordered By: Jennifer Celis Referrals: Charles Molina MD [Primary Care Provider, Family Practice] Discharge Diet: Advance as tolerated Discharge Activity: Increase activity as tolerated Patient Instructions: Upper Respiratory Infection (ED), Viral Syndrome (ED), Opioid Safety, Pain Management, Patient Portal & Barb Instructions Activity Restrictions/Additional Instructions: Thank you for choosing [facility] for your healthcare needs today. You have been screened and evaluated and felt safe for discharge. Health conditions do change or evolve sometimes and as such it is important that you follow up with your Primary Doctor to be re checked, 3-5 days is a general good time frame for follow up. You are always welcome to return to the ED for re assessment if your symptoms are worsening or you have new concerns. (Please note that included in your discharge packet is information concerning opioid safety and pain management. 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
[2025-07-13 06:13] VITALS: PULSE 88; RESP 18; O2SAT 99
[2025-07-13 06:20] VITALS: PULSE 93
[2025-07-13 06:39] VITALS: BP 117/58; PULSE 135; O2SAT 100
[2025-07-13 06:51] LABS: Respiratory Syncytial Virus Ce NEGATIVE (Negative); SARS-CoV-2 PCR NEGATIVE (Negative)
[2025-07-13] MEDS: methylPREDNISolone sod succ 125 mg/2 mL INJ IVP (07:06)
[2025-07-13] MEDS: ondansetron 2 mg/ML SDV 2 mL 4 MG IVP (07:06)
[2025-07-13 07:35] LABS: Glucose Urine UA Negative (Normal); Nitrate Urine Negative (Negative); Specific Gravity, Urine 1.026 (1.005-1.030)
[2025-07-13 08:02] VITALS: BP 101/59; PULSE 105; RESP 16; O2SAT 96
== END 2025-07-13 08:03 | disposition home or self-care (01) ==
PROVIDERS: Emergency Provider Emergency Medicine; PCP Family Medicine
DX: J06.9 Acute upper respiratory infection, unspecified (principal); E86.0 Dehydration; Z11.52 Encounter for screening for COVID-19; F17.290 Nicotine dependence, other tobacco product, uncomplicated
CPT/HCPCS: 71045; 81001; 87637; 93005; 94640; 96374; 96375; 99285; J2405; J2919; J7030; J7613